=== PATIENT | male | born 1965 | race Caucasian/White ===

== ENCOUNTER → 2022-06-01 10:28 | Outpatient (BNVA) | payer OTHER, SELFPAY | PROVIDERS: PCP Physician Assistant; Visit Provider Anesthesiology | DX: G89.4 Chronic pain syndrome (principal); M96.1 Postlaminectomy syndrome, not elsewhere classified; M46.1 Sacroiliitis, not elsewhere classified; M53.3 Sacrococcygeal disorders, not elsewhere classified | CPT/HCPCS: 99202 ==

== ENCOUNTER 2022-08-02 07:15 | Outpatient (REF) | payer OTHER, SELFPAY ==
--- NOTE | ~2022-08-02 | FL_ITS ---
EXAMINATION: XR FLUOROSCOPY WITH IMAGES CLINICAL INFORMATION: M53.3 - Sacrococcygeal disorders, not elsewhere classified COMPARISON: CT pelvis 12/18/2016 TECHNIQUE: Fluoroscopy Supervised By: Dr. Jonathan Vazquez. Fluoroscopy Time: 0.5 minutes. Cumulative Dose: 6.80 mGy. DAP: 1.85 Gycm2. Images: 2. FINDINGS: There are 5 spinal needles overlying the sacral wing, presumably the right with patient prone. Some contrast is seen in the soft tissues without vascular communication. There is bilateral rodding and disc spaces lower lumbar spine. FL/FL guidance in treatment room IMPRESSION: Fluoroscopy for pain management procedures.
== END 2022-08-02 07:16 | disposition home or self-care (01) ==
LOC: CF 07:15
PROVIDERS: Visit Provider Anesthesiology
DX: M53.3 Sacrococcygeal disorders, not elsewhere classified (principal); M96.1 Postlaminectomy syndrome, not elsewhere classified; G89.4 Chronic pain syndrome; M46.1 Sacroiliitis, not elsewhere classified
CPT/HCPCS: 64451

== ENCOUNTER → 2022-08-04 10:46 | Outpatient (BNVA) | payer OTHER, SELFPAY | PROVIDERS: PCP Physician Assistant; Visit Provider Anesthesiology | DX: Z13.89 Encounter for screening for other disorder (principal) ==

== ENCOUNTER → 2022-08-15 10:32 | Outpatient (BNVA) | payer OTHER, SELFPAY | PROVIDERS: PCP Physician Assistant; Visit Provider Anesthesiology | DX: M96.1 Postlaminectomy syndrome, not elsewhere classified (principal); M46.1 Sacroiliitis, not elsewhere classified; M53.3 Sacrococcygeal disorders, not elsewhere classified; G89.4 Chronic pain syndrome | CPT/HCPCS: 99212 ==

== ENCOUNTER 2022-09-06 06:21 | Outpatient (REF) | payer OTHER, SELFPAY ==
--- NOTE | ~2022-09-06 | FL_ITS ---
EXAMINATION: FL FLUOROSCOPY WITH IMAGES CLINICAL INFORMATION: Sacrococcygeal disorder not elsewhere classified. COMPARISON: None available. TECHNIQUE: Fluoroscopy Supervised By: Susana Kebede Fluoroscopy Time: 0.4 minutes. Cumulative Dose: 15 mGy-cm DAP: 2.7 Gy-cm2. Images: 2. FINDINGS: Images demonstrate needle placement and contrast injection over the bilateral sacroiliac joints. There is orthopedic hardware seen in the lower lumbar spine. FL/FL guidance in treatment room IMPRESSION: Fluoroscopy guidance for pain management procedure.
== END 2022-09-06 06:22 | disposition home or self-care (01) ==
LOC: CF 06:21
PROVIDERS: Visit Provider Anesthesiology
DX: M46.1 Sacroiliitis, not elsewhere classified (principal); M53.3 Sacrococcygeal disorders, not elsewhere classified
CPT/HCPCS: 27096; J3301

== ENCOUNTER → 2022-10-03 13:33 | Outpatient (BNVA) | payer OTHER, SELFPAY | PROVIDERS: PCP Physician Assistant; Visit Provider Anesthesiology | DX: M96.1 Postlaminectomy syndrome, not elsewhere classified (principal); M46.1 Sacroiliitis, not elsewhere classified; M53.3 Sacrococcygeal disorders, not elsewhere classified; G89.4 Chronic pain syndrome | CPT/HCPCS: 99212 ==

== ENCOUNTER 2022-10-20 10:25 | Day surgery (SDC) | payer OTHER, SELFPAY ==
--- NOTE | 2022-10-19 11:05 | HO.ANESPROP2 ---
Documented by User: Josseline Ann NP 10/19/22 11:08 HPI - Anesthesia Eval Consult details Narrative: 56yo M for Lumbar Spinal Cord Stimulation Trial PMFSH Active Problems Active Problems: All Active Problems (Updated 06/01/22 @ 11:13 by Jonathan Vazquez MD) Sacroiliac joint pain (Acute) Sacroiliitis (Acute) Chronic pain syndrome (Acute) Postlaminectomy syndrome (Acute) Past Medical History Medical History (Updated 10/19/22 @ 11:06 by Josseline Ann NP) Anxiety and depression Asthma GERD (gastroesophageal reflux disease) HLD (hyperlipidemia) HTN (hypertension) CHANI (iron deficiency anemia) Primary insomnia RLS (restless legs syndrome) Vitamin D deficiency Surgical History Surgical History (Updated 10/19/22 @ 11:06 by Josseline Ann NP) S/P lumbar fusion Social History Social History Patient Tobacco Use Status: Never used Tobacco Use of substances other than those prescribed or required for medical reasons: No Substance Use Type Other:: denied Are you DNR?: No Advance Directives: No Advance Directives Information Provided: Yes Meds Allergies Allergy/AdvReac Type Severity Reaction Status Date / Time No Known Allergies Allergy Verified 10/03/22 13:37 Home Medications Medication Instructions Recorded Confirmed Last Taken Type atorvastatin 80 mg tablet 80 mg PO DAILY 06/01/22 10/20/22 Unknown History dicyclomine 10 mg capsule 10 mg PO Q6H PRN Stomach Upset 06/01/22 10/20/22 Unknown History fluticasone 250 mcg-salmeterol 50 1 ea inhalation BID 06/01/22 10/20/22 Unknown History mcg/dose blistr powdr for inhalation (Advair Diskus) gabapentin 600 mg tablet 600 mg PO QID 06/01/22 10/20/22 Unknown History lisinopril 10 mg tablet 10 mg PO DAILY 06/01/22 10/20/22 Unknown History omeprazole 40 mg capsule,delayed 40 mg PO QAM 06/01/22 10/20/22 Unknown History release ondansetron HCl 4 mg tablet 4 mg PO Q8H PRN nausea 06/01/22 10/20/22 Unknown History sertraline 100 mg tablet 100 mg PO DAILY 06/01/22 10/20/22 Unknown History ropinirole 0.25 mg tablet 0.5 mg PO BID 08/02/22 10/20/22 Unknown History trazodone 50 mg tablet 50 - 150 mg PO BEDTIME PRN Insomnia 08/02/22 10/20/22 Unknown History Exam Exam Date and Time: October 19, 2022 1105 Assessment and Plan Assessment Anesthesia Assessment: Chart Reviewed Documented by User: Ashutosh Le MD 10/20/22 12:13 PMF Past Medical History Medical History (Updated 10/19/22 @ 11:06 by Josseline Ann NP) Anxiety and depression Asthma GERD (gastroesophageal reflux disease) HLD (hyperlipidemia) HTN (hypertension) CHANI (iron deficiency anemia) Primary insomnia RLS (restless legs syndrome) Vitamin D deficiency Family History Family history of problems with anesthesia: No Surgical History Surgical History (Updated 10/19/22 @ 11:06 by Josseline Ann NP) S/P lumbar fusion History of Problems with Anesthesia: No Social History Social History Patient Tobacco Use Status: Never used Tobacco Use of substances other than those prescribed or required for medical reasons: No Substance Use Type Other:: denied Are you DNR?: No Advance Directives: No Advance Directives Information Provided: Yes Meds Allergies Allergy/AdvReac Type Severity Reaction Status Date / Time No Known Allergies Allergy Verified 10/03/22 13:37 Home Medications Medication Instructions Recorded Confirmed Last Taken Type atorvastatin 80 mg tablet 80 mg PO DAILY 06/01/22 10/20/22 Unknown History dicyclomine 10 mg capsule 10 mg PO Q6H PRN Stomach Upset 06/01/22 10/20/22 Unknown History fluticasone 250 mcg-salmeterol 50 1 ea inhalation BID 06/01/22 10/20/22 Unknown History mcg/dose blistr powdr for inhalation (Advair Diskus) gabapentin 600 mg tablet 600 mg PO QID 06/01/22 10/20/22 Unknown History lisinopril 10 mg tablet 10 mg PO DAILY 06/01/22 10/20/22 Unknown History omeprazole 40 mg capsule,delayed 40 mg PO QAM 06/01/22 10/20/22 Unknown History release ondansetron HCl 4 mg tablet 4 mg PO Q8H PRN nausea 06/01/22 10/20/22 Unknown History sertraline 100 mg tablet 100 mg PO DAILY 06/01/22 10/20/22 Unknown History ropinirole 0.25 mg tablet 0.5 mg PO BID 08/02/22 10/20/22 Unknown History trazodone 50 mg tablet 50 - 150 mg PO BEDTIME PRN Insomnia 08/02/22 10/20/22 Unknown History Exam Airway Mallampati Class: I TM Dist: >3cm Neck ROM: Full Denture: Upper and Lower Heart: ok Lungs: ok Assessment and Plan Assessment Anesthesia Assessment: Anesthesia Plan Discussed Final Anesthetic Review Family History of Problems with Anesthesia: No History of Problems with Anesthesia: No NPO: Yes ASA Class: II Final Preanesthetic Review: No Changes in Pt Med Stat, Meds/Allgs Chart Reviewed, Consent Obtained/Reviewed and Anes Risks/Benef Reviewed Patient Risk: Low Procedure Risk: Intermediate Anesthetic Plan Anesthetic Plan: MAC: and Agree w/ Assess. and Plan Disposition: Standard PACU
--- NOTE | ~2022-10-20 | FL_ITS ---
EXAMINATION: XR FLUOROSCOPY WITH IMAGES CLINICAL INFORMATION: Spinal cord stimulator COMPARISON: Chest radiograph 11/14/2018 TECHNIQUE: Fluoroscopy Supervised By: Dr. Jonathan Vazquez. Fluoroscopy Time: 1.8 minutes. Cumulative Dose: 24.6 mGy. DAP: 6.71 Gycm2. Images: 3. FINDINGS: There are 2 spinal stimulator electrodes seen ascending the posterior spinal canal. The electrode tips are at level of mid thoracic spine. There is no visible kinking or defect of the leads. FL/FL guidance in OR IMPRESSION: Fluoroscopy for pain management procedure.
[2022-10-20 11:14] VITALS: BP 105/77; RESP 18; TEMP 36.4; O2SAT 95
[2022-10-20 11:17] VITALS: BMI 24.3
[2022-10-20] MEDS: Lactated Ringers 1,000 ML 100 ML IVCONT (11:21)
--- NOTE | 2022-10-20 11:39 | P.HPSUR_ITS ---
Pre-Procedural Eval Section A Date of Service: 10/20/22 The patient is an INPATIENT: No Changes since office visit: Yes Patient answered all questions The History & Physical has been completed within 30 days and I have reviewed it.: No Section B Chief Complaint: Postlaminectomy syndrome, not elsewhere classified Details of Present Illness: as above Relevant Family History (Specify if Yes): No Relevant Social History: None Present Medications: see Short Stay Collaborative assessment Medical History: No relevant PMH History of Previous Operations: Relevant previous surgery/procedure and date(s) Allergies: Allergies Allergy/AdvReac Type Severity Reaction Status Date / Time No Known Allergies Allergy Verified 10/03/22 13:37 Review of Systems Sugical H&P ROS: Negative: Constitution, Cardiovascular, Respiratory, Neurological, Psychiatric, Hem-Onc, Allergic/Immunologic, Gastrointestinal, Genitourinary, Musculoskeletal, Integumentary, Endocrine and Eyes/Ear s/Nose/Throat Exam Surgical H&P Exam: Normal: HEENT, Normal: Heart, Normal: Lungs, Normal: Extremities, Normal: Abdomen, Normal: Skin and Normal: Neurological Plan Diagnosis/Plan: Unchanged I have reviewed the history and physical and performed a pertinent physical examination on my patient. No changes have occurred unless specified. Time Spent With Patient Time: Total time managing care of this patient today ____ minutes.
--- NOTE | 2022-10-20 12:55 | P.BOP_ITS ---
Brief Operative Note Date of Service: 10/20/22 Pre-op diagnosis: postlaminectomy syndrome Post-op diagnosis: same Procedure: Trial of the [employer] SCS Surgeon: Jonathan Vazquez MD Anesthesia: MAC Was an Redipper used for this Procedure?: No Estimated blood loss (mL): 8 Pathology: none sent Condition: stable Disposition: PACU
--- NOTE | 2022-10-20 12:55 | PM.OP ---
Brief Operative Note Date of Service: 10/20/22 Pre-op diagnosis: postlaminectomy syndrome Post-op diagnosis: same Procedure: Trial of the [employer] SCS Surgeon: Jonathan Vazquez MD Anesthesia: MAC Was an [employer] Manager used for this Procedure?: No Estimated blood loss (mL): 8 Pathology: none sent Condition: stable Disposition: PACU
--- NOTE | 2022-10-20 12:57 | P.OP_ITS ---
Operative Note Operative Note Date of Service: 10/20/22 Narrative: trial of spinal cord stimulator [employer] SCS Gaurav is very pleasant 56 years old gentleman who came to the OR for the trial as above for the treatment of postlaminectomy syndrome and diabetic polyneu ropathy pain. ?Preoperatively patient received ? cefazolin 2 g approximately 10 minutes before the procedure. After obtaining informed consent the patient was brought to the operating room, he was positioned prone on operating table, [place] [employer] monitors were? not applied and the patient was not sedated. ?Time-out was performed delineating correct site, side, the nature of the procedure, patient's allergy, preoperative antibiotic if needed.? All operating room staff was participating in OR time-out procedure. Patient's entire back was prepped with Chloraprep twice and draped with full body fenestrated laparoscopy drape.? Sterilely draped C-arm was brought over operating field and square picture of the ? T12-L1 L2 and L3 vertebrae? were demonstrated on the screen. ?Attention FIRST? was concentrated on the L1-L2 epidural interspace.? The location of the projection of the right pedicle center of the L3 vertebra was found on the skin using C-arm.? This location was injected with mixture of lidocaine 2% and ropivaciane 0.5% - 5 cc.? After that 11 blade was used to make a paras on the skin.? 10 cm 14 gauge? introducer epidural needle was inserted through the paras and advanced to? L1-L2 epidural interspace.? The advancement of the needle was performed on anterior posterior and lateral views. Loss of resistance to air? technique were used to locate epidural space.,very shallow epidural about 3.5 to 4 cm only under the skin. epidural lead was inserted through the needle and it was advanced to ? top of T7 vertebra projection stric tly on the midline, lateral view demonstrated position of the lead in posterior epidural space. After that? the location of the projection of the LEFT pedicle center of the? L3 vertebra was found on the skin using C-arm.? This location was injected with mixture of lidocaine 2% and Marcaine 0.5% 5 cc.? After that 11 blade was used to make a paras on the skin.? 10 cm 14 gauge introducer epidural needle was inserted through the paras and advanced to L1- L2 epidural interspace.? The advancement of the needle was performed on anterior posterior and lateral views.? Guitar wire and loss of resistance to air technique were used to locate epidural space.? When guitar wire was spread in the epidural fashion, epidural lead was inserted through the needle and advanced to the top of T7 epidural interspace slightly? right to the existing midline positioned electrode. On the lateral view the patient had the leads positioned in the posterior epidural space. Impedance was checked and was satisfactory . at this moment patient was awaken of the epidural leads were connected to the testing wires and trial stimulation was performed.? Patient was reporting stimulation corresponding to his low back and left? lower extremity pain. Impedance was checked? and it was found to be satisfactory.? Posterior lead placement was verified by lateral x-ray ? The stimulation was found to be? corresponding to the patient's pain. The needles were withdrawn, the stylette wires were removed from the epidural leads.? The anchoring devices were dislodged on the leads and advanced to the level of the skin.? The anchoring devices were sutured with two 0-0? Silk sutures per each anchor to the skin of the patient. The central fixation screw of each anchor was rotated until three clicks were heard. The leads were connected to testing device.? Bacitracin ointment was applied to the entrance point of bilateral wires.? Sterile dressing was applied to the patient's back.? The testing device was also taped to the patient's back.? the patient tolerated procedure well he was awaken and taken outside of the operating room to recovery room. he recovered uneventfully.
[2022-10-20 12:58] VITALS: BP 122/80; PULSE 58; RESP 18; TEMP 36.9; O2SAT 100
[2022-10-20 13:13] VITALS: BP 125/83; PULSE 67; RESP 18; O2SAT 99
[2022-10-20 13:28] VITALS: BP 136/88; PULSE 70; RESP 18; O2SAT 96
[2022-10-20] MEDS: oxyCODONE HCl Immed Release 5 MG TABLET 10 MG PO (13:28)
[2022-10-20] MEDS: Acetaminophen 325 MG TABLET 650 MG PO (13:29)
[2022-10-20 13:43] VITALS: BP 122/80; PULSE 68; RESP 18; TEMP 36.9; O2SAT 99
== END 2022-10-20 14:43 | disposition home or self-care (01) ==
PROVIDERS: PCP Physician Assistant Medical; Visit Provider Anesthesiology
PROC: (CPT 63650; principal; 2022-10-20 11:30)
DX: M96.1 Postlaminectomy syndrome, not elsewhere classified (principal); M53.3 Sacrococcygeal disorders, not elsewhere classified; M46.1 Sacroiliitis, not elsewhere classified; G89.4 Chronic pain syndrome; E11.42 Type 2 diabetes mellitus with diabetic polyneuropathy; E78.5 Hyperlipidemia, unspecified; I10 Essential (primary) hypertension; F41.8 Other specified anxiety disorders; J45.909 Unspecified asthma, uncomplicated; D50.9 Iron deficiency anemia, unspecified; Z79.51 Long term (current) use of inhaled steroids; Z79.899 Other long term (current) drug therapy; Z98.890 Other specified postprocedural states; E55.9 Vitamin D deficiency, unspecified
CPT/HCPCS: 63650 ×2; C1713; C1778; J0690; J2250; J2795; J3010

== ENCOUNTER → 2022-10-24 14:46 | Outpatient (BNVA) | payer OTHER, SELFPAY | PROVIDERS: PCP Physician Assistant Medical; Visit Provider Anesthesiology | DX: M96.1 Postlaminectomy syndrome, not elsewhere classified (principal); M46.1 Sacroiliitis, not elsewhere classified; M53.3 Sacrococcygeal disorders, not elsewhere classified; G89.4 Chronic pain syndrome | CPT/HCPCS: 99212 ==

== ENCOUNTER → 2022-10-27 15:49 | Outpatient (BNVA) | payer OTHER, SELFPAY | PROVIDERS: PCP Physician Assistant Medical; Visit Provider Nurse Practitioner Family | DX: G89.4 Chronic pain syndrome (principal); M53.3 Sacrococcygeal disorders, not elsewhere classified; M46.1 Sacroiliitis, not elsewhere classified; M96.1 Postlaminectomy syndrome, not elsewhere classified | CPT/HCPCS: 99212 ==

== ENCOUNTER → 2022-11-11 10:23 | Outpatient (BNVA) | payer OTHER, SELFPAY | PROVIDERS: PCP Physician Assistant Medical; Visit Provider Physician Assistant | DX: M53.3 Sacrococcygeal disorders, not elsewhere classified (principal) | CPT/HCPCS: 99212 ==

== ENCOUNTER → 2022-11-14 15:22 | Outpatient (BNVA) | payer OTHER, SELFPAY | PROVIDERS: PCP Physician Assistant Medical; Visit Provider Anesthesiology | DX: M96.1 Postlaminectomy syndrome, not elsewhere classified (principal); M46.1 Sacroiliitis, not elsewhere classified; M53.3 Sacrococcygeal disorders, not elsewhere classified; G89.4 Chronic pain syndrome | CPT/HCPCS: 99212 ==

== ENCOUNTER → 2022-11-23 13:06 | Outpatient (BNVA) | payer OTHER, SELFPAY | PROVIDERS: PCP Physician Assistant Medical; Visit Provider Anesthesiology | DX: M96.1 Postlaminectomy syndrome, not elsewhere classified (principal); M46.1 Sacroiliitis, not elsewhere classified; M53.3 Sacrococcygeal disorders, not elsewhere classified; G89.4 Chronic pain syndrome | CPT/HCPCS: 99212 ==

== ENCOUNTER 2023-02-03 12:02 | Inpatient (IN) | payer OTHER, SELFPAY ==
--- NOTE | ~2023-02-03 | CT_ITS ---
EXAMINATION: CT LOWER LEG WITH CONTRAST, RIGHT CLINICAL INFORMATION: Cellulitis, evaluate for abscess. COMPARISON: X-ray of the right lower leg 02/03/2023. TECHNIQUE: CT scan of the right lower leg is performed with contrast. 85 mL of Omnipaque 350 given intravenously. FINDINGS: There is a superficial skin/subcutaneous tissue defect noted along the anterior medial aspect of the proximal lower leg located 4 cm distal to the joint line. This defect measures 9 mm transverse, 10 mm craniocaudal and up to 4 mm in depth. Question ulceration or laceration. Deep to the aforementioned superficial defect is an area of heterogeneous low attenuation with poorly defined margins but extending proximal to distal over a distance of approximately 10 cm craniocaudal. This measures up to 5.6 cm transverse and up to 1 cm anterior and posterior. There are multiple foci of gas noted within this area of decreased attenuation. The appearance is most suggestive of a developing abscess/phlegmon. There is additional more generalized streaky density noted throughout the subcutaneous soft tissues predominantly along the anterior and medial aspect of the proximal half of the lower leg. This likely reflects edema or cellulitis or combination of these. The bone is normal. Neurovascular structures unremarkable. Muscles/Tendons: Unremarkable. CT/CT lower leg RT w IV con IMPRESSION: 1. Superficial skin/subcutaneous tissue defect along the anterior medial aspect of the proximal lower leg. Question laceration versus ulceration. 2. Deep to the aforementioned superficial defect is an area of heterogeneous low attenuation with multiple foci of gas most suggestive of a developing abscess. 3. There is additional streaky density noted throughout the subcutaneous soft tissues predominantly along the anterior and medial aspect of the proximal half of the lower leg. This likely reflects surrounding edema or cellulitis or combination of these.
--- NOTE | ~2023-02-03 | XR_ITS ---
EXAMINATION: XR TIBIA AND FIBULA, RIGHT CLINICAL INFORMATION: Assess for osteomyelitis COMPARISON: None available. TECHNIQUE: AP and lateral views of the right tibia and fibula were obtained. FINDINGS: The bones and soft tissues are notable for lucencies within the soft tissues anteriorly which should be correlated with physical exam. No radiopaque foreign body or definite soft tissue air. No findings of osteomyelitis. Calcaneal plantar spurring.. No fracture. No osseous lesions. XR/XR tibia fibula RT 2V IMPRESSION: Soft tissue changes as above. No evidence of osteomyelitis. If there is a high index of suspicion, MRI would be more sensitive.
[2023-02-03 13:32] VITALS: BP 144/89; PULSE 136; RESP 17; TEMP 36.1; O2SAT 94; BMI 22.0
--- NOTE | 2023-02-03 13:35 | ED.GENADULT ---
HPI - General Adult General Chief complaint: Extremity Problem Stated complaint: Infection R Leg Dizziness Time Seen by Provider: 02/03/23 15:55 Source: patient Mode of arrival: ambulatory Limitations: no limitations History of Present Illness HPI narrative: 57 yo male with chronic back pain here with c/o R leg infection for almost two weeks states he was at [facility] for 8 days until the (had I+D no wound cultures done but blood cultures neg) and discharged on augmentin he has been taking it for 5 days. A VNA was supposed to come but they never did. He feels the wound is more red and not improving. He thinks he is having fevers. He is taking the medications. It all started when he knelt down on wood and developed what he thought was puncture wounds/splinters and was digging around in it. He adamantly denies IVDA to me but takes methadone for chronic back pain. MD complaint: R leg redness, drainage Onset (ago): day(s) (started on 01/21) Location: right and lower extremity Radiation: non-radiation Severity: moderate Quality: aching and dull Pain Consistency: constant Relieving factors: immobilization Exacerbating factors: movement Associated symptoms: fever/chills, loss of appetite and malaise Treatments prior to arrival: other (states he is compliant with the augmentin) Related Data Home Medications Medication Instructions Recorded Confirmed atorvastatin 80 mg tablet 80 mg PO DAILY 06/01/22 10/20/22 dicyclomine 10 mg capsule 10 mg PO Q6H PRN Stomach Upset 06/01/22 10/20/22 fluticasone 250 mcg-salmeterol 50 1 ea inhalation BID 06/01/22 10/20/22 mcg/dose blistr powdr for inhalation (Advair Diskus) lisinopril 10 mg tablet 10 mg PO DAILY 06/01/22 10/20/22 omeprazole 40 mg capsule,delayed 40 mg PO QAM 06/01/22 10/20/22 release ondansetron HCl 4 mg tablet 4 mg PO Q8H PRN nausea 06/01/22 10/20/22 sertraline 100 mg tablet 100 mg PO DAILY 06/01/22 10/20/22 ropinirole 0.25 mg tablet 1 mg PO BEDTIME 08/02/22 10/20/22 trazodone 50 mg tablet 50 - 150 mg PO BEDTIME PRN Insomnia 08/02/22 10/20/22 tramadol 50 mg tablet mg PO 10/27/22 amoxicillin 875 mg-potassium 1 tab PO Q12H 02/03/23 clavulanate 125 mg tablet baclofen 10 mg tablet 10 mg PO TID 02/03/23 celecoxib 200 mg capsule 200 mg PO BID 02/03/23 gabapentin 800 mg tablet 800 mg PO QID 02/03/23 methocarbamol 750 mg tablet 750 mg PO TID 02/03/23 venlafaxine 37.5 mg 37.5 mg PO DAILY 02/03/23 capsule,extended release 24 hr Allergies Allergy/AdvReac Type Severity Reaction Status Date / Time No Known Allergies Allergy Verified 11/23/22 13:14 Review of Systems Review of Systems: Constitutional : No Fever, pos Chills ENT/Mouth : No sore throat, No Rhinorrhea Eyes: No Eye Pain, No Swelling, No Redness Cardiovascular : No Chest Pain, No SOB Respiratory : No Cough, No Sputum Gastrointestinal : No Nausea, No Vomiting, No Diarrhea, No abdominal Pain Genitourinary : No Dysuria, No Hematuria Musculoskeletal : No joint pain, No Myalgias, No Joint Swelling Skin : No Skin Lesions, positive skin rash Neuro : No Weakness, No Numbness, No Headache Psych : No Anxiety, No Depression Heme/Lymph: No Bruising, No Bleeding,No Lymphadenopathy Endocrine : No Polyuria, No Polydipsia All other systems reviewed and are negative [facility] Past Medical History Attestation statement: The following information was validated with the patient. Medical History Anxiety and depression Asthma GERD (gastroesophageal reflux disease) HLD (hyperlipidemia) HTN (hypertension) CHANI (iron deficiency anemia) Primary insomnia RLS (restless legs syndrome) Vitamin D deficiency Surgical History S/P lumbar fusion Social History Social History Alcohol intake: never Patient Tobacco Use Status: Never used Tobacco Smoked in Last 30 Days: No Use of substances other than those prescribed or required for medical reasons: No Advance Directives: No Advance Directives Information Provided: No Physical Exam ED Vital Signs: Vital Signs - 24 hr 02/03/23 13:32 02/03/23 14:48 02/03/23 15:41 Temperature 97.0 F 98.2 F Pulse Rate 136 H 81 75 Respiratory Rate 17 18 18 Blood Pressure 144/89 H 156/92 H 146/84 H Pulse Oximetry 94 97 97 Oxygen Delivery Method Room Air Room Air Room Air BMI result Body Mass Index 22.0 Appearance: Alert. Oriented X3. No acute distress. Eyes: Pupils equal, round and reactive to light. ENT: Pharynx normal. Neck: Normal inspection. Neck supple. CVS: Normal heart rate and rhythm. Pulses normal. Respiratory: No respiratory distress. Breath sounds normal. Abdomen: Soft and nontender. Skin: Skin warm and dry. R leg anterior - erythema warmth raised and cellulitic no crepitus felt there are 3 open wounds medial wound is draining yellow ss fluid he can bend the knee no signs of septic joint on clinical exam distal NV intact Extremities: No lower extremity edema. No calf ttp Neuro: Oriented X 3. No motor deficit. No sensory deficit. Course Course Course Narrative: This is a rapid medical exam: Additional HPI, ROS, PE not included below will be deferred to primary provider. Patient is a 57-year-old male presenting to the emergency department with worsening right lower extremity infection. Patient reports that he felt on something and developed an infection. Has been on Augmentin and states redness is worsening. Reports subjective fever. Patient tachycardic, will order blood cultures, lactic, EKG. Plan: x-ray, labs, EKG Medications Administered Discontinued Medications Generic Name Dose Route Start Last Admin Trade Name Freq PRN Reason Stop Dose Admin Piperacillin Sod/Tazobactam 50 mls @ 100 mls/hr 02/03/23 16:21 02/03/23 16:32 Sod 3.375 gm/ Sodium Chloride IV 02/03/23 16:50 100 mls/hr ONCE ONE Administration Medical Decision Making Medical Decision Making MDM Narrative: 57 yo male hx of HTN, HLD, asthma, chronic pain on methadone here with persistent R leg infection s/p treatment and I+D at [facility] this month and on day 5 of augmentin he still has drainage and erythema with fevers/chills at home and WBC count at this time will resend cultures and wound culture start on empiric broad antibiotics and admit for further workup. Differential Diagnosis Differential Diagnoses: The differential diagnosis associated with the presentation includes cellulitis - resistant bacteria Admission/Observation Consideration of admission/observation: Escalation of care including admission/observation considered admission for IV antibiotics Consult Healthcare Provider Management of the patient was discussed with: Hospitalist (agrees to admit) Lab Data [facility] Lab Attestation statement: I reviewed the patient's lab results. 02/03/23 14:07 02/03/23 14:07 Labs: Lab Results 02/03/23 02/03/23 02/03/23 Range/Units 14:07 14:07 14:07 WBC 14.4 H (4.8-10.8) X10*3/uL RBC 4.86 (4.60-5.80) X10*6/uL Hgb 14.4 (14.0-18.0) g/dl Hct 43.2 (42.0-52.0) % MCV 88.9 (80.0-98.0) fL MCH 29.6 (27.0-33.0) pg MCHC 33.3 (31.0-36.0) g/dl RDW 12.7 (11.0-16.0) % Plt Count 402 H (160-400) X10*3/uL MPV 9.3 L (9.4-12.4) fL Immature Gran % (Auto) 4.7 H (0.0-0.4) % Neut % (Auto) 81.1 H (45-73) % Lymph % (Auto) 8.6 L (20-40) % [place] % (Auto) 5.0 (2-11) % Eos % (Auto) 0.2 (0-4) % Baso % (Auto) 0.4 (0-2) % Lymph # (Auto) 1.2 (1.2-4.9) X10*3/uL [place] # (Auto) 0.7 (0.1-1.2) X10*3/uL Eos # (Auto) 0.0 (0.0-0.4) X10*3/uL Baso # (Auto) 0.1 (0.0-0.2) X10*3/uL Abs Immat Gran (auto) 0.67 H (0.00-0.03) X10*3/uL Absolute Neuts (auto) 11.7 H (2.0-8.3) x10*3/uL Absolute Nucleated RBC 0.000 (0.0-0.012) X10*3/uL Nucleated RBC % (auto) 0.0 (0.0-0.2) /100WBC Sodium 136 (135-145) mmol/L Potassium 4.6 (3.3-5.1) mmol/L Chloride 97 (96-108) mmol/L Carbon Dioxide 30 H (22-29) mmol/L Anion Gap 14 (12-20) BUN 8 L (9-16) mg/dL Creatinine 0.80 (0.5-1.4) mg/dL Estim Creat Clear Calc 92.4 Estimated GFR > 60 Random Glucose 99 (60-115) mg/dL Lactic Acid 0.6 (0.5-2.0) mmol/L Calcium 9.6 (8.4-10.2) mg/dL Total Bilirubin 0.4 (0.0-1.0) mg/dL AST 38 H (5-37) U/L ALT 31 (0-40) U/L Alkaline Phosphatase 100 (39-117) U/L Total Protein 7.8 (6.5-8.0) g/dL Albumin 4.1 (3.5-5.0) g/dL Independent Interpretation I performed an independent interpretation of an: Plain X-Ray (no gas or osteo) Radiology Impression Discussion of test interpretation with radiology: I have reviewed the radiologist's reading. External Record Review External record reviewed: Outpatient record Discharge Plan Discharge Clinical Impression: Cellulitis, Leukocytosis Patient Disposition: Admitted As Inpatient Prescriptions: No Action cephalexin 500 mg tablet 1,000 mg PO Q8H 7 Days Qty: 42 1RF Rx Instructions: take probiotics 25 billion cultures with food between the doses of your antibiotics. celecoxib 200 mg capsule 200 mg PO BID venlafaxine 37.5 mg capsule,extended release 24hr 37.5 mg PO DAILY methocarbamol 750 mg tablet 750 mg PO TID gabapentin 800 mg tablet 800 mg PO QID baclofen 10 mg tablet 10 mg PO TID amoxicillin-pot clavulanate 875-125 mg tablet 1 tab PO Q12H fluticasone propion-salmeterol [Advair Diskus] 250-50 mcg/dose blister with device 1 ea inhalation BID ondansetron HCl 4 mg tablet 4 mg PO Q8H PRN (Reason: nausea) dicyclomine 10 mg capsule 10 mg PO Q6H PRN (Reason: Stomach Upset) lisinopril 10 mg tablet 10 mg PO DAILY omeprazole 40 mg capsule,delayed release(DR/EC) 40 mg PO QAM sertraline 100 mg tablet 100 mg PO DAILY atorvastatin 80 mg tablet 80 mg PO DAILY trazodone 50 mg tablet 50 - 150 mg PO BEDTIME PRN (Reason: Insomnia) ropinirole 0.25 mg tablet 0.5 mg PO BID tramadol 50 mg tablet PO
--- NOTE | 2023-02-03 13:41 | ECG_ITS ---
Test Reason : TACHYCARDIA Blood Pressure : / mmHG Vent. Rate : 075 BPM Atrial Rate : 075 BPM P-R Int : 152 ms QRS Dur : 074 ms QT Int : 370 ms P-R-T Axes : 019 039 045 degrees QTc Int : 413 ms Normal sinus rhythm Normal ECG When compared with ECG of 14-NOV-2018 01:21, T wave amplitude has increased in Anterior leads Heart rate has decreased Referred By: Generic ED Physician Electronically Signed By:EDMUNDO CHANDRA
[2023-02-03 14:13] LABS: MANUAL DIFF FLAG NO
[2023-02-03 14:14] LABS: Basophils Absolute Auto 0.1 X10*3/uL (0.0-0.2); Basophils Percent Auto 0.4 % (0-2); Eosinophils Percent Auto 0.2 % (0-4); Hematocrit 43.2 % (42.0-52.0); Hemoglobin 14.4 g/dl (14.0-18.0); Imm Gran Abs Auto 0.67 X10*3/uL (0.00-0.03); Imm Gran Pct Auto 4.7 % (0.0-0.4); Lymphocytes Absolute Auto 1.2 X10*3/uL (1.2-4.9); Lymphocytes Percent Auto 8.6 % (20-40); Mean Corpuscular HGB Conc 33.3 g/dl (31.0-36.0); Mean Corpuscular Hemoglobin 29.6 pg (27.0-33.0); Mean Corpuscular Volume 88.9 fL (80.0-98.0); Mean Platelet Volume 9.3 fL (9.4-12.4); Monocytes Absolute Auto 0.7 X10*3/uL (0.1-1.2); Neutrophils Absolute Auto 11.7 x10*3/uL (2.0-8.3); Neutrophils Percent Auto 81.1 % (45-73); Platelet Count 402 X10*3/uL (160-400); Red Blood Count 4.86 X10*6/uL (4.60-5.80); Red Cell Distribution Width 12.7 % (11.0-16.0); White Blood Count 14.4 X10*3/uL (4.8-10.8)
[2023-02-03 14:44] LABS: Lactic Acid 0.6 mmol/L (0.5-2.0)
[2023-02-03 14:48] VITALS: BP 156/92; PULSE 81; RESP 18; TEMP 36.8; O2SAT 97
[2023-02-03 14:49] LABS: Alanine Aminotransferase 31 U/L (0-40); Albumin Level 4.1 g/dL (3.5-5.0); Alkaline Phosphatase 100 U/L (39-117); Anion Gap 14 (12-20); Aspartate Amino Transferase 38 U/L (5-37); Bilirubin Total 0.4 mg/dL (0.0-1.0); Blood Urea Nitrogen 8 mg/dL (9-16); Calcium 9.6 mg/dL (8.4-10.2); Carbon Dioxide 30 mmol/L (22-29); Chloride 97 mmol/L (96-108); Creatinine Clr Calc Pharmacy 92.4; Estimated Glomerular Filt Rate > 60; Glucose Random 99 mg/dL (60-115); Potassium 4.6 mmol/L (3.3-5.1); Sodium 136 mmol/L (135-145); Total Protein 7.8 g/dL (6.5-8.0)
--- NOTE | 2023-02-03 14:55 | PC.NURSE ---
pt reports getting methadone for his R calf pain/wound, pt was taking amoxicillin past 5 day with minimal improvement. pt reports increased redness, warmth, swelling and drainage.
[2023-02-03 15:41] VITALS: BP 146/84; PULSE 75; RESP 18; O2SAT 97
[2023-02-03] MEDS: Piperacillin Sodium/Tazobactam 3.375 GM in 0.9 % Sodium Chloride 50 ML IV (16:32)
[2023-02-03] MEDS: vancomycin HCL 1,000 MG, vancomycin HCL 750 MG in 0.9 % Sodium Chloride 500 ML 267.5 MG IV (17:31)
[2023-02-03 17:32] VITALS: PULSE 75; RESP 16; TEMP 36.9; O2SAT 94
--- NOTE | 2023-02-03 17:39 | P.HPHOSP_ITS ---
the patient was seen and evaluated with JOE Ambrocio. I agree with her note, assessment and plan with the following. In summary, A 57 years old male w HTN, HLD, RLS among others who presents with RLE erythema and drainage after being recently treated for it at [facility] with reported worsening erythema and drainage. Sepsis 2/2 cellulitis of RLE Failer OP antibiotics Pending wound and blood cultures Cover with Vancomycin ID consult Rest of evaluations by PA note. History of Present Illness Date of Service: 02/03/23 Attending physician on admission: Alfonso Lopez Chief Complaint: right leg redness and pain This is a 57-year-old male with recent admission at [facility] for right lower extremity cellulitis who presents to the emergency department today with persistent redness and pain of his right lower extremity. Patient was admitted from January 24 to January 31 for management of cellulitis and abscess requiring I&D on 01/28. Records obtained from [facility], no wound cultures obtained. Blood cultures were negative. patient was discharged with a week of augmentin. He has been taking his p.o. antibiotics as prescribed. This morning he noted feeling feverish. He reports persistent purulent drainage and ongoing erythema. In the emergency department met sepsis criteria with leukocytosis of 14,000 and tachycardia. Wound culture was obtained as well as blood cultures. He was treated with IV Zosyn and the decision was made to admit him to the hospital for further management of persistent right lower extremity cellulitis. Review of Systems Review of Systems: Yes all other systems are reviewed and are negative Constitutional: Constitutional: Denies chills and Reports fever(s) (subjective) Cardiovascular: Cardiovascular: Denies chest pain Gastrointestinal: Gastrointestinal: Denies abdominal pain, Denies nausea and Denies vomiting [facility] Medical History (Updated 02/03/23 @ 17:47 by JOE Sepulveda) Anxiety and depression Asthma Chronic pain syndrome GERD (gastroesophageal reflux disease) HLD (hyperlipidemia) HTN (hypertension) CHANI (iron deficiency anemia) Postlaminectomy syndrome Primary insomnia RLS (restless legs syndrome) Sacroiliac joint pain Sacroiliitis Vitamin D deficiency Family History (Updated 02/03/23 @ 17:48 by JOE Sepulveda) Other Multiple sclerosis Surgical History S/P lumbar fusion Social History Alcohol intake: never Patient Tobacco Use Status: Never used Tobacco Smoked in Last 30 Days: No Use of substances other than those prescribed or required for medical reasons: No Advance Directives: No Advance Directives Information Provided: No Nutrition Risks: No Nutritional Risk Meds Allergies Allergy/AdvReac Type Severity Reaction Status Date / Time No Known Allergies Allergy Verified 11/23/22 13:14 Active Medications: Current Medications Vancomycin HCl 1,000 mg/Vancomycin HCl 750 mg/ Sodium Chloride 535 mls @ 267.5 mls/hr IV ONCE ONE Stop: 02/03/23 18:20 Last Admin: 02/03/23 17:31 Dose: 267.5 mls/hr Home Medications Medication Instructions Recorded Confirmed Last Taken Type atorvastatin 80 mg tablet 80 mg PO BEDTIME 06/01/22 02/03/23 Unknown History dicyclomine 10 mg capsule 10 mg PO Q6H PRN Stomach Upset 06/01/22 02/03/23 Unknown History fluticasone 250 mcg-salmeterol 50 1 ea inhalation BID 06/01/22 02/03/23 Unknown History mcg/dose blistr powdr for inhalation (Advair Diskus) lisinopril 10 mg tablet 10 mg PO DAILY 06/01/22 02/03/23 Unknown History omeprazole 40 mg capsule,delayed 40 mg PO QAM PRN gi upset 06/01/22 02/03/23 Unknown History release ondansetron HCl 4 mg tablet 4 mg PO Q8H PRN nausea 06/01/22 02/03/23 Unknown History ropinirole 0.25 mg tablet 1 mg PO BEDTIME 08/02/22 02/03/23 Unknown History trazodone 50 mg tablet 150 mg PO BEDTIME PRN Insomnia 08/02/22 02/03/23 Unknown History albuterol sulfate 90 mcg/actuation 2 inh inhalation Q4H PRN Shortness 02/03/23 02/03/23 Unknown History aerosol inhaler Of Breath amoxicillin 875 mg-potassium 1 tab PO Q12H 02/03/23 02/03/23 Unknown History clavulanate 125 mg tablet baclofen 10 mg tablet 10 mg PO TID PRN Muscle Spasm 02/03/23 02/03/23 Unknown History celecoxib 200 mg capsule 200 mg PO BID 02/03/23 02/03/23 Unknown History gabapentin 800 mg tablet 800 mg PO QID 02/03/23 02/03/23 Unknown History methadone 10 mg/mL oral concentrate 90 mg PO DAILY 02/03/23 Unknown History venlafaxine 37.5 mg 37.5 mg PO DAILY 02/03/23 02/03/23 Unknown History capsule,extended release 24 hr Physical Exam Vital Signs and Narrative: Vital Signs: Last Vital Signs Temp 98.5 F 02/03/23 17:32 Pulse 75 02/03/23 17:32 Resp 16 02/03/23 17:32 BP 146/84 H 02/03/23 15:41 Pulse Ox 94 02/03/23 17:32 O2 Del Method Room Air 02/03/23 17:32 BMI result Body Mass Index 22.0 Const: General: cooperative, comfortable, alert and awake Nutritional Appearance: average body habitus Orientation/consciousness: patient oriented x3 Resp: Effort & Inspection: normal respiratory effort, able to speak in complete sentences, no respiratory distress and no use of accessory muscles Cardio: Rate: regular rate Heart sounds: S1 normal heart sound present and S2 normal heart sound present GI: Inspection: No distended Palpation (GI): Soft to palpation and nontender Skin: Other: Neuro: General: patient oriented x3 and CN's II-XI intact bilaterally Extrem: Other: mild RLE swelling Results Labs 02/03/23 14:07 02/03/23 14:07 Labs: Laboratory Results - last 24 hr 02/03/23 02/03/23 02/03/23 14:07 14:07 14:07 MCV 88.9 MCH 29.6 MCHC 33.3 RDW 12.7 Plt Count 402 H MPV 9.3 L Immature Gran % (Auto) 4.7 H Neut % (Auto) 81.1 H Lymph % (Auto) 8.6 L [place] % (Auto) 5.0 Eos % (Auto) 0.2 Baso % (Auto) 0.4 Lymph # (Auto) 1.2 [place] # (Auto) 0.7 Eos # (Auto) 0.0 Baso # (Auto) 0.1 Abs Immat Gran (auto) 0.67 H Absolute Neuts (auto) 11.7 H Absolute Nucleated RBC 0.000 Nucleated RBC % (auto) 0.0 Anion Gap 14 Estim Creat Clear Calc 92.4 Estimated GFR > 60 Random Glucose 99 Lactic Acid 0.6 Calcium 9.6 Total Bilirubin 0.4 AST 38 H ALT 31 Alkaline Phosphatase 100 Total Protein 7.8 Albumin 4.1 Imaging Radiologist's Impressions: Impressions Tibia/Fibula X-Ray 02/03/23 14:28 IMPRESSION: Soft tissue changes as above. No evidence of osteomyelitis. If there is a high index of suspicion, MRI would be more sensitive. Assessment and Plan (1) Cellulitis: Qualifiers: Laterality: right Site of cellulitis: extremity Site of cellulitis of extremity: lower extremity Qualified Code(s): L03.115 - Cellulitis of right lower limb Status: Acute Plan This is a 57-year-old male with history of hypertension, hyperlipidemia, periphe ral neuropathy, restless leg syndrome, chronic back pain, recent admission to [facility] for right lower extremity cellulitis and abscess who presents to the emergency department with persistent pain, erythema and drainage Sepsis secondary to purulent cellulitis of RLE meets criteria with leukocytosis and tachycardia. no severe features. LA wnl. was discharged 01/31 with po augmentin, pt reports compliance xray negative. no evidence of abscess -will start IV vanco -follow up wound culture and blood cultures -ID consult Chronic pain methadone dose needs to be verified Continue gabapentin, baclofen RLS continue ropinirole Hyperlipidemia Continue statin Asthma No acute exacerbation Continue home inhalers mood continue venlafaxine HTN continue lisinopril dvt ppx - lovenox code status - full code attending - dr. lopez Due to persistent cellulitis patient will likely require 2 midnight stay in the hospital for IV antibiotics and to prevent further deterioration/spread of infection Time Spent With Patient Time: Total time managing care of this patient today ____ minutes. Quality Stroke Does the patient have a stroke diagnosis?: No VTE Prior VTE?: No VTE Risk Level:: Medical - moderate - high VTE Device Contraindication: Treatment Not Indicated VTE Drug Contraindication: N/A - Med Ordered
--- NOTE | 2023-02-03 17:45 | PHA.MEDREC ---
Pharmacy Consult ? Medication Reconciliation Pharmacy has completed the medication reconciliation. Patient reported all medications. Patient stated he use Advair and Albuterol even though no claim histroy for them. Patient reported he was methadone for pain. He report he get it from [place] but could not clarify where. Reprots he told the lady that was in here before me. RN will need to confirm dose. Dawna Black, PatrickD
--- NOTE | 2023-02-03 17:51 | PHA.PROG ---
Admission Date/Time: February 03, 2023 17:32 Indication: Cellulitis Weight in k.771 kg Adjusted body weight in K kg Table [place] body weight in K kg Obesity Dosing Indication % IBW: N/A Serum Creatinine - Last 168 Hours 02/03/23 14:07 Creatinine 0.80 Estimated CrCl and GFR - Last 168 Hours 02/03/23 14:07 Estim Creat Clear Calc 92.4 Estimated GFR > 60 Vancomycin Loading Dose:1750 mg (26mg/kg) Current Vancomycin Dosing Regimen: 1000 mg Q12H (15 mg/kg) Date and Time for next Vancomycin Level to be drawn: 02/04 @ 1600 Pharmacist Comments on Vancomycin Plan: patient received an adequate load dose in the the ER on 02/03 @ 1731 maintenance dose vancomycin 1000 mg Q12H is scheduled to start 02/04 @ 0600. expected AUC 468 with a trough of 11.8 level will be drawn prior to 3rd dose to evaluate for safety and effifacy while pharmacy is in house pharmacy will monitor renal function daily Dawna Black PharmD Vancomycin dosing will take advantage of [employer] as a clinical decision support tool that uses Bayesian modeling to calculate individual patient's pharmacokinetic parameters and forecast the patient's drug concentration time course with the target goal AUC 24 range of 400 - 600 mg/L/hr.
[2023-02-03] MEDS: Enoxaparin Sodium 40 MG/0.4 ML SYRINGE SUBCUT (18:35)
[2023-02-03] MEDS: Gabapentin 400 MG CAPSULE 800 MG PO ×2 (18:35→21:27)
[2023-02-03] MEDS: Albuterol Sulfate 90 MCG 8 GM INHALER 2 PUFF INHALE (18:35)
--- NOTE | 2023-02-03 18:45 | PC.NURSE ---
report called to medical doctor md. patient being transported up to bed 362
[2023-02-03 18:52] VITALS: BP 158/84; PULSE 66; RESP 18; TEMP 36; O2SAT 97
[2023-02-03] MEDS: Atorvastatin Calcium 80 MG TABLET PO (21:27)
[2023-02-03] MEDS: rOPINIRole HCL 0.25 MG TABLET 1 MG PO (21:28)
[2023-02-03] MEDS: oxyCODONE HCl Immed Release 5 MG TABLET PO (21:35)
[2023-02-03] MEDS: traZODone HCL 50 MG TABLET 150 MG PO (21:35)
[2023-02-03] MEDS: 0.9 % Sodium Chloride Flush 3 ML SYRINGE IVFLUSH (23:39)
[2023-02-04] VITALS: BP 132/79; PULSE 85
[2023-02-04] MEDS: oxyCODONE HCl Immed Release 5 MG TABLET PO ×2 (00:12→14:45)
[2023-02-04 03:06] VITALS: BP 141/84; PULSE 77; RESP 17; TEMP 36.9; O2SAT 94
[2023-02-04 06:29] LABS: Hematocrit 38.8 % (42.0-52.0); Hemoglobin 12.8 g/dl (14.0-18.0); Mean Corpuscular Hemoglobin 29.4 pg (27.0-33.0); Mean Platelet Volume 9.8 fL (9.4-12.4); Platelet Count 330 X10*3/uL (160-400); Red Blood Count 4.36 X10*6/uL (4.60-5.80); White Blood Count 11.7 X10*3/uL (4.8-10.8)
[2023-02-04] MEDS: vancomycin HCL 1,000 MG in 0.9 % Sodium Chloride 250 ML 270 MG IV (06:42)
[2023-02-04 06:54] LABS: Anion Gap 11 (12-20); Blood Urea Nitrogen 7 mg/dL (9-16); Calcium 9.1 mg/dL (8.4-10.2); Carbon Dioxide 30 mmol/L (22-29); Chloride 101 mmol/L (96-108); Creatinine Clr Calc Pharmacy 99.9; Estimated Glomerular Filt Rate > 60; Glucose Random 102 mg/dL (60-115); Potassium 4.4 mmol/L (3.3-5.1); Sodium 138 mmol/L (135-145)
[2023-02-04 07:03] VITALS: BP 146/75; PULSE 75; RESP 18; TEMP 36.6; O2SAT 98
[2023-02-04] MEDS: Venlafaxine HCl ER 37.5 MG CAP.ER.24H PO (07:56)
[2023-02-04] MEDS: 0.9 % Sodium Chloride Flush 3 ML SYRINGE IVFLUSH (07:56)
[2023-02-04] MEDS: lisinopriL 10 MG TABLET PO (07:56)
[2023-02-04] MEDS: Gabapentin 400 MG CAPSULE 800 MG PO ×3 (07:56→19:48)
--- NOTE | 2023-02-04 07:59 | HE.PHANOTE ---
Re: methadone verification last dose 02/03/23 90 mg given at [facility] verified by Bijal Rucker on 02/04/23 @0778
[2023-02-04] MEDS: methADONE HCl 20 MG/2 ML ORAL.CONC 90 MG PO (08:35)
--- NOTE | 2023-02-04 09:44 | MHC.CM.PN ---
Addendum entered by Aicha Keller 02/05/23 13:10: PT DID NOT COMPLETE HCP, HE HAS ELECTED TO TAKE INFORMATION/DOCUMENT HOME WITH HIM INSTEAD TO DISCUSS WITH FAMILY. Original Note: PT REPORTS HE AND HIS ARE , HOWEVER HE STILL LIVES IN THE HOME WITH HER AND TWO OF THEIR SONS HE REPORTS HE IS INDEPENDENT WITH ALL CARE, HAS NO SERVICES AND NO DME HE COMPLETED A HCP TODAY NAMING HIS DAUGHTER, HAYLEY HIS AGENT PCP: HARSHIL BELLO PT REPORTS HE HOPES TO HAVE A VNA AT [place] HE DOES NOT FEEL COMPETENT TO MANAGE THE WOUND CARE HE REPORTS HE WORRIES HE WILL REINFECT THE AREA REFERRAL MADE TO [facility] PT WILL DRIVE HIMSELF HOME AT [place]
--- NOTE | 2023-02-04 11:45 | P.PNIM_ITS ---
Subjective Subjective Date of Service: 02/04/23 Interval History: seen and examined this morning follow up for RLE cellulitis still with pain and erythema, drainage from open wound Review of Systems Review of Systems: Yes all other systems are reviewed and are negative Constitutional Constitutional: Denies chills and Denies fever(s) Physical Exam Vital Signs: Vital Signs: Last Vital Signs Temp 98 F 02/04/23 07:03 Pulse 75 02/04/23 07:03 Resp 18 02/04/23 07:03 BP 146/75 H 02/04/23 07:03 Pulse Ox 98 02/04/23 07:03 O2 Del Method Room Air 02/04/23 07:03 BMI result Body Mass Index 22.0 Const: General: cooperative, comfortable, alert and awake Nutritional Appearance: average body habitus Orientation/consciousness: patient oriented x3 Resp: Effort & Inspection: normal respiratory effort, able to speak in complete sentences, no respiratory distress and no use of accessory muscles Cardio: Rate: regular rate Heart sounds: S1 normal heart sound present and S2 normal heart sound present GI: Inspection: No distended Palpation (GI): Soft to palpation and nontender Skin: Other: tenderness and some mild fluctuance around open wound Neuro: General: patient oriented x3 and CN's II-XI intact bilaterally Extrem: Other: mild RLE swelling Objective Data Active Medications Acetaminophen (Acetaminophen 325 Mg Tablet) 650 mg PO Q6H PRN PRN Reason: Pain, Mild (Pain Scale 1-3) Albuterol Sulfate (Albuterol Sulfate 90 Mcg 8 Gm Inhaler) 2 puff INHALE Q4H PRN PRN Reason: Shortness Of Breath Last Admin: 02/03/23 18:35 Dose: 2 puff Documented By: NOLBERTO Atorvastatin Calcium (Atorvastatin Calcium 80 Mg Tablet) 80 mg PO BEDTIME [facility] Last Admin: 02/03/23 21:27 Dose: 80 mg Documented By: DOBROB Baclofen (Baclofen 10 Mg Tablet) 10 mg PO TID PRN PRN Reason: Muscle Spasm Docusate Sodium (Docusate Sodium 100 Mg Capsule) 100 mg PO DAILY PRN PRN Reason: Constipation Enoxaparin Sodium (Enoxaparin Sodium 40 Mg/0.4 Ml Syringe) 40 mg SUBCUT Q24H [facility] Last Admin: 02/03/23 18:35 Dose: 40 mg Documented By: NOLBERTO Fluticasone/Vilanterol (Fluticasone/Vilanterol 100/25 Blst.W.Dev) 1 puff INHALE RDAILY [facility] Last Admin: 02/04/23 08:53 Dose: Not Given Documented By: KB Non-Admin Reason: pharmacy called Gabapentin (Gabapentin 400 Mg Capsule) 800 mg PO QID [facility] Last Admin: 02/04/23 07:56 Dose: 800 mg Documented By: YULIET Vancomycin HCl 1,000 mg/ (Sodium Chloride) 270 mls @ 270 mls/hr IV Q12H [facility] Last Infusion: 02/04/23 07:57 Dose: 0 mls/hr Documented By: YULIET Sodium Chloride (Ns) 1,000 mls @ 100 mls/hr IVCONT .Q10H [facility] Stop: 02/04/23 19:44 Lisinopril (Lisinopril 10 Mg Tablet) 10 mg PO DAILY [facility]; Protocol Last Admin: 02/04/23 07:56 Dose: 10 mg Documented By: YULIET Methadone HCl (Methadone Hcl 20 Mg/2 Ml Oral.Conc) 90 mg PO DAILY [facility] Last Admin: 02/04/23 08:35 Dose: 90 mg Documented By: YULIET Omeprazole (Omeprazole 40 Mg Capsule.Dr) 40 mg PO DAILY PRN PRN Reason: gi upset Oxycodone HCl (Oxycodone Hcl Immed Release 5 Mg Tablet) 5 mg PO Q4H PRN PRN Reason: Pain, Moderate(Pain Scale 4-6) Last Admin: 02/04/23 00:12 Dose: 5 mg Documented By: BAIRON Pharmacy Consult (Consult Rx Vancomycin Dosing) 1 each MISCELLANE DAILY PRN PRN Reason: Consult order Ropinirole HCl (Ropinirole Hcl 0.25 Mg Tablet) 1 mg PO BEDTIME [facility] Last Admin: 02/03/23 21:28 Dose: 1 mg Documented By: MIGUEL Sodium Chloride (0.9 % Sodium Chloride Flush 3 Ml Syringe) 3 ml IVFLUSH QSHIFT [facility] Last Admin: 02/04/23 07:56 Dose: 3 ml Documented By: YULIET Trazodone HCl (Trazodone Hcl 50 Mg Tablet) 150 mg PO BEDTIME PRN PRN Reason: Insomnia Last Admin: 02/03/23 21:35 Dose: 150 mg Documented By: MIGUEL Venlafaxine HCl (Venlafaxine Hcl Er 37.5 Mg Cap.Er.24h) 37.5 mg PO DAILY [facility] Last Admin: 02/04/23 07:56 Dose: 37.5 mg Documented By: YULIET Labs 02/04/23 05:34 02/04/23 05:34 Labs: Laboratory Results - last 24 hr 02/03/23 02/03/23 02/03/23 14:07 14:07 14:07 MCV 88.9 MCH 29.6 MCHC 33.3 RDW 12.7 Plt Count 402 H MPV 9.3 L Immature Gran % (Auto) 4.7 H Neut % (Auto) 81.1 H Lymph % (Auto) 8.6 L [place] % (Auto) 5.0 Eos % (Auto) 0.2 Baso % (Auto) 0.4 Lymph # (Auto) 1.2 [place] # (Auto) 0.7 Eos # (Auto) 0.0 Baso # (Auto) 0.1 Abs Immat Gran (auto) 0.67 H Absolute Neuts (auto) 11.7 H Absolute Nucleated RBC 0.000 Nucleated RBC % (auto) 0.0 Anion Gap 14 Estim Creat Clear Calc 92.4 Estimated GFR > 60 Random Glucose 99 Lactic Acid 0.6 Calcium 9.6 Total Bilirubin 0.4 AST 38 H ALT 31 Alkaline Phosphatase 100 Total Protein 7.8 Albumin 4.1 02/04/23 02/04/23 05:34 05:34 MCV 89.0 MCH 29.4 MCHC 33.0 RDW 13.0 Plt Count 330 MPV 9.8 Immature Gran % (Auto) Neut % (Auto) Lymph % (Auto) [place] % (Auto) Eos % (Auto) Baso % (Auto) Lymph # (Auto) [place] # (Auto) Eos # (Auto) Baso # (Auto) Abs Immat Gran (auto) Absolute Neuts (auto) Absolute Nucleated RBC 0.000 Nucleated RBC % (auto) 0.0 Anion Gap 11 L Estim Creat Clear Calc 99.9 Estimated GFR > 60 Random Glucose 102 Lactic Acid Calcium 9.1 Total Bilirubin AST ALT Alkaline Phosphatase Total Protein Albumin Microbiology Microbiology Results: Microbiology 02/03/23 16:54 Gram Stain - Final Leg Right Routine Culture - Preliminary Culture in progress. Assessment and Plan (1) Cellulitis: Status: Acute Plan This is a 57-year-old male with history of hypertension, hyperlipidemia, peripheral neuropathy, restless leg syndrome, chronic back pain, recent admission to [facility] for right lower extremity cellulitis and abscess who presents to the emergency department with persistent pain, erythema and drainage Sepsis secondary to purulent cellulitis of RLE mets criteria with leukocytosis and tachycardia. white count trending down, tachycardia resolved was discharged from [facility] 01/31 with po augmentin, pt reports compliance xray negative. no evidence of abscess wound culture growing gram + cocci continue IV vanco - follow renal function daily follow blood cultures ID consult pending CT to assess for any drainable fluid collection Chronic pain continue methadone, gabapentin, baclofen RLS continue ropinirole Hyperlipidemia Continue statin Asthma No acute exacerbation Continue home inhalers mood continue venlafaxine HTN continue lisinopril dvt ppx - lovenox code status - full code attending - dr. mathur Requires ongoing inpatient hospital stay for IV abx for persistent cellulitis Time Spent With Patient Time: Total time managing care of this patient today ____ minutes. Quality Stroke Does the patient have a stroke diagnosis?: No VTE Prior VTE?: No VTE Risk Level:: Medical - moderate - high VTE Device Contraindication: Treatment Not Indicated VTE Drug Contraindication: N/A - Med Ordered
[2023-02-04] MEDS: iohexoL 350 MG/ML 100 ML INFUS..BTL IV (12:17)
[2023-02-04] MEDS: 0.9 % Sodium Chloride 1,000 ML 100 ML IVCONT (12:19)
[2023-02-04 14:49] VITALS: BP 133/85; PULSE 84; RESP 18; TEMP 36.6; O2SAT 98
[2023-02-04 16:52] LABS: Vancomycin Random 11.1 mcg/mL (15-20)
--- NOTE | 2023-02-04 17:14 | HE.PHANOTE ---
Re: vanco dosing Trough is low at 11.1 but renal function is still good. Will increase dose to 1250 q12 and recheck trough 02/05 @1600
[2023-02-04] MEDS: vancomycin HCL 1,250 MG in 0.9 % Sodium Chloride 250 ML 166.67 MG IV (17:24)
[2023-02-04] MEDS: Enoxaparin Sodium 40 MG/0.4 ML SYRINGE SUBCUT (17:24)
[2023-02-04] MEDS: Atorvastatin Calcium 80 MG TABLET PO (19:48)
[2023-02-04] MEDS: rOPINIRole HCL 0.25 MG TABLET 1 MG PO (19:49)
[2023-02-04 20:00] VITALS: BP 159/90; PULSE 78; RESP 18; TEMP 36.3; O2SAT 96
--- NOTE | 2023-02-04 20:37 | PM.CNGS ---
History of Present Illness Consult details Consult date: 02/04/23 Narrative: Patient is a 57-year-old male who was hospitalized approximately a week ago for 8 days at [facility] for right lower extremity cellulitis and abscess requiring incision and drainage. He re-presented now because of persistence of symptoms. He is having right lower leg pain and swelling and discharge. Chart was reviewed patient evaluated. Patient is a plethora of comorbidities. Patient's white count on admission yesterday was 14.4, down to 11.7 today. [facility], LAT[facility] Past Medical History Medical History (Updated 02/03/23 @ 17:47 by JOE Sepulveda) Anxiety and depression Asthma Chronic pain syndrome GERD (gastroesophageal reflux disease) HLD (hyperlipidemia) HTN (hypertension) CHANI (iron deficiency anemia) Postlaminectomy syndrome Primary insomnia RLS (restless legs syndrome) Sacroiliac joint pain Sacroiliitis Vitamin D deficiency Family History Family History (Updated 02/03/23 @ 17:48 by JOE Sepulveda) Other Multiple sclerosis Surgical History Surgical History S/P lumbar fusion Social History Social History Household Members: None Do you presently have visiting nurse or other home services: No Alcohol intake: never Patient Tobacco Use Status: Never used Tobacco service: No Meds Allergies Allergy/AdvReac Type Severity Reaction Status Date / Time No Known Allergies Allergy Verified 11/23/22 13:14 Active Medications: Current Medications Acetaminophen (Acetaminophen 325 Mg Tablet) 650 mg PO Q6H PRN PRN Reason: Pain, Mild (Pain Scale 1-3) Albuterol Sulfate (Albuterol Sulfate 90 Mcg 8 Gm Inhaler) 2 puff INHALE Q4H PRN PRN Reason: Shortness Of Breath Last Admin: 02/03/23 18:35 Dose: 2 puff Atorvastatin Calcium (Atorvastatin Calcium 80 Mg Tablet) 80 mg PO BEDTIME LISA Last Admin: 02/04/23 19:48 Dose: 80 mg Baclofen (Baclofen 10 Mg Tablet) 10 mg PO TID PRN PRN Reason: Muscle Spasm Docusate Sodium (Docusate Sodium 100 Mg Capsule) 100 mg PO DAILY PRN PRN Reason: Constipation Enoxaparin Sodium (Enoxaparin Sodium 40 Mg/0.4 Ml Syringe) 40 mg SUBCUT Q24H [facility] Last Admin: 02/04/23 17:24 Dose: 40 mg Fluticasone/Vilanterol (Fluticasone/Vilanterol 100/25 Blst.W.Dev) 1 puff INHALE RDAILY [facility] Last Admin: 02/04/23 08:53 Dose: Not Given Gabapentin (Gabapentin 400 Mg Capsule) 800 mg PO QID [facility] Last Admin: 02/04/23 19:48 Dose: 800 mg Vancomycin HCl 1,250 mg/ (Sodium Chloride) 250 mls @ 166.667 mls/hr IV Q12H [facility] Last Infusion: 02/04/23 18:58 Dose: Infused Lisinopril (Lisinopril 10 Mg Tablet) 10 mg PO DAILY [facility]; Protocol Last Admin: 02/04/23 07:56 Dose: 10 mg Methadone HCl (Methadone Hcl 20 Mg/2 Ml Oral.Conc) 90 mg PO DAILY [facility] Last Admin: 02/04/23 08:35 Dose: 90 mg Omeprazole (Omeprazole 40 Mg Capsule.Dr) 40 mg PO DAILY PRN PRN Reason: gi upset Oxycodone HCl (Oxycodone Hcl Immed Release 5 Mg Tablet) 5 mg PO Q4H PRN PRN Reason: Pain, Moderate(Pain Scale 4-6) Last Admin: 02/04/23 14:45 Dose: 5 mg Pharmacy Consult (Consult Rx Vancomycin Dosing) 1 each MISCELLANE DAILY PRN PRN Reason: Consult order Ropinirole HCl (Ropinirole Hcl 0.25 Mg Tablet) 1 mg PO BEDTIME [facility] Last Admin: 02/04/23 19:49 Dose: 1 mg Sodium Chloride (0.9 % Sodium Chloride Flush 3 Ml Syringe) 3 ml IVFLUSH QSHIFT [facility] Last Admin: 02/04/23 15:45 Dose: Not Given Trazodone HCl (Trazodone Hcl 50 Mg Tablet) 150 mg PO BEDTIME PRN PRN Reason: Insomnia Last Admin: 02/03/23 21:35 Dose: 150 mg Venlafaxine HCl (Venlafaxine Hcl Er 37.5 Mg Cap.Er.24h) 37.5 mg PO DAILY [facility] Last Admin: 02/04/23 07:56 Dose: 37.5 mg Home Medications Medication Instructions Recorded Confirmed Last Taken Type atorvastatin 80 mg tablet 80 mg PO BEDTIME 06/01/22 02/03/23 Unknown History dicyclomine 10 mg capsule 10 mg PO Q6H PRN Stomach Upset 06/01/22 02/03/23 Unknown History fluticasone 250 mcg-salmeterol 50 1 ea inhalation BID 06/01/22 02/03/23 Unknown History mcg/dose blistr powdr for inhalation (Advair Diskus) lisinopril 10 mg tablet 10 mg PO DAILY 06/01/22 02/03/23 Unknown History omeprazole 40 mg capsule,delayed 40 mg PO QAM PRN gi upset 06/01/22 02/03/23 Unknown History release ondansetron HCl 4 mg tablet 4 mg PO Q8H PRN nausea 06/01/22 02/03/23 Unknown History ropinirole 0.25 mg tablet 1 mg PO BEDTIME 08/02/22 02/03/23 Unknown History trazodone 50 mg tablet 150 mg PO BEDTIME PRN Insomnia 08/02/22 02/03/23 Unknown History albuterol sulfate 90 mcg/actuation 2 inh inhalation Q4H PRN Shortness 02/03/23 02/03/23 Unknown History aerosol inhaler Of Breath amoxicillin 875 mg-potassium 1 tab PO Q12H 02/03/23 02/03/23 Unknown History clavulanate 125 mg tablet baclofen 10 mg tablet 10 mg PO TID PRN Muscle Spasm 02/03/23 02/03/23 Unknown History celecoxib 200 mg capsule 200 mg PO BID 02/03/23 02/03/23 Unknown History gabapentin 800 mg tablet 800 mg PO QID 02/03/23 02/03/23 Unknown History methadone 10 mg/mL oral concentrate 90 mg PO DAILY 02/03/23 02/04/23 02/03/23 History venlafaxine 37.5 mg 37.5 mg PO DAILY 02/03/23 02/03/23 Unknown History capsule,extended release 24 hr Physical Exam Vital Signs: Vital Signs: Last Vital Signs Temp 97.3 F 02/04/23 20:00 Pulse 78 02/04/23 20:00 Resp 18 02/04/23 20:00 BP 159/90 H 02/04/23 20:00 Pulse Ox 96 02/04/23 20:00 O2 Del Method Room Air 02/04/23 20:00 BMI result Body Mass Index 22.0 Extrem: Other: Right lower leg demonstrates significant induration and erythema. Patient has 2 open draining wounds ; 1 anteromedial and 1 mid lateral. Each was explored locally and the more medial 1 had some minimum purulence expressed. Extremities otherwise grossly neurovascularly intact Dressing was reapplied. Patient tolerated this well. Results Labs 02/04/23 05:34 02/04/23 05:34 Labs: Abnormal lab results 02/04/23 02/04/23 02/04/23 Range/Units 05:34 05:34 16:02 WBC 11.7 H (4.8-10.8) X10*3/uL RBC 4.36 L (4.60-5.80) X10*6/uL Hgb 12.8 L (14.0-18.0) g/dl Hct 38.8 L (42.0-52.0) % Carbon Dioxide 30 H (22-29) mmol/L Anion Gap 11 L (12-20) BUN 7 L (9-16) mg/dL Random Vancomycin 11.1 L (15-20) mcg/mL Short CBC 02/04/23 Range/Units 05:34 WBC 11.7 H (4.8-10.8) X10*3/uL Hgb 12.8 L (14.0-18.0) g/dl Hct 38.8 L (42.0-52.0) % Plt Count 330 (160-400) X10*3/uL BMP 02/04/23 05:34 Sodium 138 Potassium 4.4 Chloride 101 Carbon Dioxide 30 H BUN 7 L Creatinine 0.74 Calcium 9.1 All other labs normal. Assessment and Plan (1) Cellulitis: Qualifiers: Laterality: right Site of cellulitis: extremity Site of cellulitis of extremity: lower extremity Qualified Code(s): L03.115 - Cellulitis of right lower limb Status: Acute (2) Leukocytosis: Qualifiers: Leukocytosis type: unspecified Qualified Code(s): D72.829 - Elevated white blood cell count, unspecified Status: Acute Plan Current recommendation is to continue local wound care as well as elevation the right lower extremity, IV antibiotics, and direct further interventions and studies based on the patient's clinical course. Time Spent With Patient Time: Total time managing care of this patient today ____ minutes. Procedures Date of Service Date of Service: 02/04/23
--- NOTE | 2023-02-04 22:59 | P.CNID_ITS ---
History of Present Illness Data of Consult Service Date: 02/04/23 Requesting physician: Mark Read Primary Care Provider: JOE Young HPI Reason for consult: RLE redness He presents again with redness rle and thinks has fever and is more swollen. WBC is 14.4. He had been on Augmentin started on 01/21 and think got worse. He thought he had fever but no fever here. Review of Systems Review of Systems: Yes all other systems are reviewed and are negative [facility] Past Medical History Medical History Anxiety and depression Asthma Chronic pain syndrome GERD (gastroesophageal reflux disease) HLD (hyperlipidemia) HTN (hypertension) CHANI (iron deficiency anemia) Postlaminectomy syndrome Primary insomnia RLS (restless legs syndrome) Sacroiliac joint pain Sacroiliitis Vitamin D deficiency Family History Family History Other Multiple sclerosis Family history: reviewed and not pertinent Surgical History Surgical History S/P lumbar fusion Social History Social History Household Members: None Do you presently have visiting nurse or other home services: No Alcohol intake: never Patient Tobacco Use Status: Never used Tobacco service: No Meds Allergies Allergy/AdvReac Type Severity Reaction Status Date / Time No Known Allergies Allergy Verified 11/23/22 13:14 Active Medications: Current Medications Acetaminophen (Acetaminophen 325 Mg Tablet) 650 mg PO Q6H PRN PRN Reason: Pain, Mild (Pain Scale 1-3) Albuterol Sulfate (Albuterol Sulfate 90 Mcg 8 Gm Inhaler) 2 puff INHALE Q4H PRN PRN Reason: Shortness Of Breath Last Admin: 02/03/23 18:35 Dose: 2 puff Atorvastatin Calcium (Atorvastatin Calcium 80 Mg Tablet) 80 mg PO BEDTIME LISA Last Admin: 02/04/23 19:48 Dose: 80 mg Baclofen (Baclofen 10 Mg Tablet) 10 mg PO TID PRN PRN Reason: Muscle Spasm Docusate Sodium (Docusate Sodium 100 Mg Capsule) 100 mg PO DAILY PRN PRN Reason: Constipation Enoxaparin Sodium (Enoxaparin Sodium 40 Mg/0.4 Ml Syringe) 40 mg SUBCUT Q24H [facility] Last Admin: 02/04/23 17:24 Dose: 40 mg Fluticasone/Vilanterol (Fluticasone/Vilanterol 100/25 Blst.W.Dev) 1 puff INHALE RDAILY [facility] Last Admin: 02/04/23 08:53 Dose: Not Given Gabapentin (Gabapentin 400 Mg Capsule) 800 mg PO QID [facility] Last Admin: 02/04/23 19:48 Dose: 800 mg Vancomycin HCl 1,250 mg/ (Sodium Chloride) 250 mls @ 166.667 mls/hr IV Q12H [facility] Last Infusion: 02/04/23 18:58 Dose: Infused Lisinopril (Lisinopril 10 Mg Tablet) 10 mg PO DAILY [facility]; Protocol Last Admin: 02/04/23 07:56 Dose: 10 mg Methadone HCl (Methadone Hcl 20 Mg/2 Ml Oral.Conc) 90 mg PO DAILY [facility] Last Admin: 02/04/23 08:35 Dose: 90 mg Omeprazole (Omeprazole 40 Mg Capsule.Dr) 40 mg PO DAILY PRN PRN Reason: gi upset Oxycodone HCl (Oxycodone Hcl Immed Release 5 Mg Tablet) 5 mg PO Q4H PRN PRN Reason: Pain, Moderate(Pain Scale 4-6) Last Admin: 02/04/23 14:45 Dose: 5 mg Pharmacy Consult (Consult Rx Vancomycin Dosing) 1 each MISCELLANE DAILY PRN PRN Reason: Consult order Ropinirole HCl (Ropinirole Hcl 0.25 Mg Tablet) 1 mg PO BEDTIME [facility] Last Admin: 02/04/23 19:49 Dose: 1 mg Sodium Chloride (0.9 % Sodium Chloride Flush 3 Ml Syringe) 3 ml IVFLUSH QSHIFT [facility] Last Admin: 02/04/23 15:45 Dose: Not Given Trazodone HCl (Trazodone Hcl 50 Mg Tablet) 150 mg PO BEDTIME PRN PRN Reason: Insomnia Last Admin: 02/03/23 21:35 Dose: 150 mg Venlafaxine HCl (Venlafaxine Hcl Er 37.5 Mg Cap.Er.24h) 37.5 mg PO DAILY [facility] Last Admin: 02/04/23 07:56 Dose: 37.5 mg Home Medications Medication Instructions Recorded Confirmed Last Taken Type atorvastatin 80 mg tablet 80 mg PO BEDTIME 06/01/22 02/03/23 Unknown History dicyclomine 10 mg capsule 10 mg PO Q6H PRN Stomach Upset 06/01/22 02/03/23 Unknown History fluticasone 250 mcg-salmeterol 50 1 ea inhalation BID 06/01/22 02/03/23 Unknown History mcg/dose blistr powdr for inhalation (Advair Diskus) lisinopril 10 mg tablet 10 mg PO DAILY 06/01/22 02/03/23 Unknown History omeprazole 40 mg capsule,delayed 40 mg PO QAM PRN gi upset 06/01/22 02/03/23 Unknown History release ondansetron HCl 4 mg tablet 4 mg PO Q8H PRN nausea 06/01/22 02/03/23 Unknown History ropinirole 0.25 mg tablet 1 mg PO BEDTIME 08/02/22 02/03/23 Unknown History trazodone 50 mg tablet 150 mg PO BEDTIME PRN Insomnia 08/02/22 02/03/23 Unknown History albuterol sulfate 90 mcg/actuation 2 inh inhalation Q4H PRN Shortness 02/03/23 02/03/23 Unknown History aerosol inhaler Of Breath amoxicillin 875 mg-potassium 1 tab PO Q12H 02/03/23 02/03/23 Unknown History clavulanate 125 mg tablet baclofen 10 mg tablet 10 mg PO TID PRN Muscle Spasm 02/03/23 02/03/23 Unknown History celecoxib 200 mg capsule 200 mg PO BID 02/03/23 02/03/23 Unknown History gabapentin 800 mg tablet 800 mg PO QID 02/03/23 02/03/23 Unknown History methadone 10 mg/mL oral concentrate 90 mg PO DAILY 02/03/23 02/04/23 02/03/23 History venlafaxine 37.5 mg 37.5 mg PO DAILY 02/03/23 02/03/23 Unknown History capsule,extended release 24 hr Physical Exam Vital Signs: Vital Signs: Last Vital Signs Temp 97.3 F 02/04/23 20:00 Pulse 78 02/04/23 20:00 Resp 18 02/04/23 20:00 BP 159/90 H 02/04/23 20:00 Pulse Ox 96 02/04/23 20:00 O2 Del Method Room Air 02/04/23 20:00 BMI result Body Mass Index 22.0 Const: General: cooperative HEENT: Head: Yes normal to inspection Face and sinus: Yes normal facial exam Mouth: Normal oral and palatal mucosa present Teeth and gingiva: dentition normal Eyes: General: appearance normal, both eyes and all related structures Pupils: Equal, round and reactive pupils present Resp: Effort & Inspection: normal respiratory effort Cardio: Rate: regular rate Rhythm: regular rhythm GI: Palpation (GI): Soft to palpation and nontender : General: Yes no CVA tenderness Back/Spine/Pelvis: Back: no CVA tenderness Skin: General skin exam: no rashes or lesions noted Neuro: General: moves all extremities Cranial nerves: Yes Equal, round and reactive pupils present Extrem: Other: redness below knee and scabbing General: Yes normal to inspection Psych: Appearance: grossly normal Results Labs 02/04/23 05:34 02/04/23 05:34 Labs: Short CBC 02/04/23 Range/Units 05:34 WBC 11.7 H (4.8-10.8) X10*3/uL Hgb 12.8 L (14.0-18.0) g/dl Hct 38.8 L (42.0-52.0) % Plt Count 330 (160-400) X10*3/uL BMP 02/04/23 05:34 Sodium 138 Potassium 4.4 Chloride 101 Carbon Dioxide 30 H BUN 7 L Creatinine 0.74 Calcium 9.1 Microbiology Microbiology Results: Microbiology 02/03/23 14:06 Blood - Venous Blood Culture - Preliminary No growth after 24 hours. 02/03/23 14:06 Blood - Venous Blood Culture - Preliminary No growth after 24 hours. 02/03/23 16:54 Leg Right Gram Stain - Final 02/03/23 16:54 Leg Right Routine Culture - Preliminary Culture in progress. Assessment and Plan (1) Cellulitis: Qualifiers: Laterality: right Site of cellulitis: extremity Site of cellulitis of extremity: lower extremity Qualified Code(s): L03.115 - Cellulitis of right lower limb Status: Acute possible staph or strep but looks also like bruising (2) Leukocytosis: Qualifiers: Leukocytosis type: unspecified Qualified Code(s): D72.829 - Elevated white blood cell count, unspecified Status: Acute Plan po linezolid 600 bid for a week. Wound Care Time Spent With Patient Time: Total time managing care of this patient today ____ minutes.
[2023-02-05] MEDS: Baclofen 10 MG TABLET PO (00:21)
[2023-02-05 03:01] VITALS: BP 141/82; PULSE 84; RESP 18; TEMP 36.4; O2SAT 94
[2023-02-05] MEDS: vancomycin HCL 1,250 MG in 0.9 % Sodium Chloride 250 ML 166.67 MG IV (06:20)
[2023-02-05 06:43] LABS: Creatinine Clr Calc Pharmacy 107.2; Estimated Glomerular Filt Rate > 60
[2023-02-05 06:59] VITALS: BP 151/83; PULSE 88; RESP 18; TEMP 36.4; O2SAT 95
[2023-02-05 07:13] LABS: Hematocrit 38.9 % (42.0-52.0); Hemoglobin 12.9 g/dl (14.0-18.0); Mean Corpuscular HGB Conc 33.2 g/dl (31.0-36.0); Mean Corpuscular Hemoglobin 29.3 pg (27.0-33.0); Mean Corpuscular Volume 88.4 fL (80.0-98.0); Mean Platelet Volume 9.8 fL (9.4-12.4); Platelet Count 379 X10*3/uL (160-400); White Blood Count 13.6 X10*3/uL (4.8-10.8)
[2023-02-05] MEDS: Fluticasone/Vilanterol 100/25 BLST.W.DEV 1 PUFF INHALE (07:47)
[2023-02-05 07:49] VITALS: PULSE 76; RESP 16; O2SAT 98
[2023-02-05] MEDS: methADONE HCl 20 MG/2 ML ORAL.CONC 90 MG PO (08:03)
[2023-02-05] MEDS: Venlafaxine HCl ER 37.5 MG CAP.ER.24H PO (08:03)
[2023-02-05] MEDS: 0.9 % Sodium Chloride Flush 3 ML SYRINGE IVFLUSH (08:03)
[2023-02-05] MEDS: lisinopriL 10 MG TABLET PO (08:03)
[2023-02-05] MEDS: Gabapentin 400 MG CAPSULE 800 MG PO ×2 (08:03→12:58)
[2023-02-05] MEDS: Dicyclomine HCl 10 MG CAPSULE PO (08:15)
[2023-02-05] MEDS: Morphine Sulfate 2 MG/ML CARTRIDGE IVPUSH (10:19)
--- NOTE | 2023-02-05 10:51 | PM.DS ---
DS: Providers Provider Date of Service: 02/05/23 Date of admission: 02/03/23 17:32 Date of discharge: 02/05/23 Primary care physician: JOE Young Consults: 02/03/23 17:31 Consult to Infectious Diseases Routine Consulting Provider: [facility] Infectious Disease Reason for consultation: persistent cellulitis Has provider been notified: No 02/03/23 22:44 Consult to Wound Care Routine Consulting Provider: Iradia Correia Reason for consultation: non healing open wound to R caraballo 02/04/23 14:24 Consult to General Surgery Routine Consulting Provider: [facility] General Surgeons Reason for consultation: purulent RLE cellulitis ?abscess Has provider been notified: No Attending physician on discharge: Alfonso Lopez Discharging clinician: Cary Burnett DS: Diagnosis Discharge Diagnosis (1) Cellulitis: Status: Acute (2) Leukocytosis: Status: Acute DS: Summary Hospital Course Hospital Course: From H&P on day of admission This is a 57-year-old male with recent admission at [facility] for right lower extremity cellulitis who presents to the emergency department today with persistent redness and pain of his right lower extremity.? Patient was admitted from January 24 to January 31 for management of cellulitis and abscess requiring I&D on 01/28. Records obtained from [facility], no wound cultures obtained. Blood cultures were negative. patient was discharged with a week of augmentin. He has been taking his p.o. antibiotics as prescribed.? This morning he noted feeling feverish.? He reports persistent purulent drainage and ongoing erythema.? In the emergency department met sepsis criteria with leukocytosis of 14,000 and tachycardia.? Wound culture was obtained as well as blood cultures.? He was treated with IV Zosyn and the decision was made to admit him to the hospital for further management of persistent right lower extremity cellulitis. RLE cellulitis patient was started on IV vancomycin. CT scan showed possible early abscess. Wound cultures are growing Staph aureus. Blood cultures have remained negative to date. He was seen by surgery but there was no drainable fluid collection and wound remains open and draining. He was seen in evaluation by Infectious Diseases who recommended to discharge home with doxycycline (drug interactions with linezolid that was initially recommended). He was eager to return home today as he has an appointment in the pain clinic tomorrow morning that he doesn't want to miss. He will be discharged home with 7 day course of doxycycline. He will be discharged with visiting nurses to assist with daily dressing changes. He is encouraged to call and schedule follow-up appointment in the Wound Care Clinic. He has a follow-up appointment with his PCP scheduled for the near future and he is encouraged to keep that appointment. Return precautions were discussed including increasing redness, swelling or fever. Time Spent with Patient Time attestation: Total time managing care of this patient today ____ minutes. Discharge coordination time: Greater than 30 minutes Quality: Safe Use of Opioids Does Pt have an Active Cancer Diagnosis on the Problem List?: No Quality: Stroke Does the patient have a stroke diagnosis?: No Physical Exam Vital Signs: Vital Signs: Last Vital Signs Temp 97.5 F 02/05/23 06:59 Pulse 76 02/05/23 07:49 Resp 16 02/05/23 07:49 BP 151/83 H 02/05/23 06:59 Pulse Ox 95 02/05/23 06:59 O2 Del Method Room Air 02/05/23 06:59 BMI result Body Mass Index 22.0 Const: General: cooperative, comfortable, alert and awake Nutritional Appearance: average body habitus Orientation/consciousness: patient oriented x3 Resp: Effort & Inspection: normal respiratory effort, able to speak in complete sentences, no respiratory distress and no use of accessory muscles Cardio: Rate: regular rate Heart sounds: S1 normal heart sound present and S2 normal heart sound present GI: Inspection: No distended Palpation (GI): Soft to palpation and nontender Skin: Other: RLE swelling, induration improved, drainage decreasing, still with some erythema around the medial open wound Neuro: General: patient oriented x3 and CN's II-XI intact bilaterally DS: Data Data Completed and Pending Labs on day of discharge: Laboratory Results - last 24 hr 02/04/23 02/05/23 02/05/23 16:02 05:33 05:33 WBC 13.6 H RBC 4.40 L Hgb 12.9 L Hct 38.9 L MCV 88.4 MCH 29.3 MCHC 33.2 RDW 13.0 Plt Count 379 MPV 9.8 Absolute Nucleated RBC 0.000 Nucleated RBC % (auto) 0.0 Creatinine 0.69 Estim Creat Clear Calc 107.2 Estimated GFR > 60 Random Vancomycin 11.1 L Preliminary micro results at discharge 02/03/23 16:54 Routine Culture - Preliminary Leg Right Staphylococcus aureus 02/03/23 14:06 Blood Culture - Preliminary Blood - Venous No growth after 24 hours. 02/03/23 14:06 Blood Culture - Preliminary Blood - Venous No growth after 24 hours. Discharge Plan Discharge Anticipated Discharge Date/Time: 02/05/23 10:30 Patient Disposition: Home Health Service Discharge Diagnosis: RLE cellulitis Referrals: Iraida Correia MD [Physician] - 1 Week Claude Deluca PA [Primary Care Provider] - 1 Week Discharge Medications: New doxycycline hyclate 100 mg tablet 100 mg PO BID 7 Days Qty: 14 0RF Continued celecoxib 200 mg capsule 200 mg PO BID venlafaxine 37.5 mg capsule,extended release 24hr 37.5 mg PO DAILY gabapentin 800 mg tablet 800 mg PO QID baclofen 10 mg tablet 10 mg PO TID PRN (Reason: Muscle Spasm) methadone 10 mg/mL Concentrate 90 mg PO DAILY albuterol sulfate 90 mcg/actuation Hfa Aerosol Inhaler 2 inh INHALATION Q4H PRN (Reason: Shortness Of Breath) fluticasone propion-salmeterol [Advair Diskus] 250-50 mcg/dose blister with device 1 ea inhalation BID ondansetron HCl 4 mg tablet 4 mg PO Q8H PRN (Reason: nausea) dicyclomine 10 mg capsule 10 mg PO Q6H PRN (Reason: Stomach Upset) lisinopril 10 mg tablet 10 mg PO DAILY omeprazole 40 mg capsule,delayed release(DR/EC) 40 mg PO QAM PRN (Reason: gi upset) atorvastatin 80 mg tablet 80 mg PO BEDTIME trazodone 50 mg tablet 150 mg PO BEDTIME PRN (Reason: Insomnia) ropinirole 0.25 mg tablet 1 mg PO BEDTIME Discontinued amoxicillin-pot clavulanate 875-125 mg tablet 1 tab PO Q12H Discharge Orders: Discharge Order (Routine); Ordered 02/05/23 Ordered By: Cary Burnett Activity on Discharge: As tolerated Stand Alone Forms: Patient Portal Discharge page Care Plan Goals: resolution of infection Health Concerns: RLE cellulitis Plan of Treatment: take doxycycline twice daily as prescribed recommend xeroform dressing with kerlix wrap changed daily. call to schedule a follow up appointment with wound care clinic call to schedule a follow up appointment with PCP If redness, swelling worsens or you develop fever call PCP or return to ED. Assessment: see discharge summary
--- NOTE | 2023-02-05 11:00 | P.F2F_ITS ---
Service Date Service Date: 02/05/23 Encounter Date of encounter: 02/05/23 Reasons for Services Signs and symptoms assessed: needs detention for wound care. RLE xeroform dressing with kerlix wrap Reason for detention: wound care MD Overseeing Care: Claude Deluca Homebound: Leaving the home is medically contraindicated at this time without the asist of a device and/or another person due th the listed conditions above and below. Reason homebound: pain with ambulation Certification: Based on the above findings, I certify that this patient is confined to the home and needs intermittent detention care, physical therapy and/or speech therapy, or continues to need occupational therapy. The patient is under my care, and I have initiated the establishment of the plan of care. The patient will be followed by a physician who will periodically review the plan of care. Time Spent With Patient Time: Total time managing care of this patient today ____ minutes.
--- NOTE | 2023-02-05 15:45 | MHC.CM.PN ---
Addendum entered by Aicha Keller 02/05/23 15:46: PT DISCHARGED HOME TODAY WITH [facility] NOTIFIED VIA [employer] [facility] UNABLE TO VERIFY PCP/INSURANCE BEFORE MONDAY PT IS AWARE THE [facility] CANNOT COME DAILY AND HE WILL NEED TO MANAGE HIS WOUND CARE ON SOME DAYS HE IS ALSO AWARE THE [facility] HAS ACCEPTED PENDING PCP AND INSURANCE VERIFICATION PT REPORTS HE HAS SEEN HIS PCP IN THE PAST YEAR AND IS SURE HE IS ACTIVE PT ARRANGED TRANSPORT Original Note: CM MET WITH PT ON 02/04/23 PT REPORTS HE AND HIS ARE , HOWEVER HE STILL LIVES IN THE HOME WITH HER AND TWO OF THEIR SONS HE REPORTS HE IS INDEPENDENT WITH ALL C[employer], HAS NO SERVICES AND NO DME PCP: HARSHIL BELLO PT REPORTS HE HOPES TO HAVE A VNA AT DC HE DOES NOT FEEL COMPETENT TO MANAGE THE WOUND CARE HE REPORTS HE WORRIES HE WILL REINFECT THE AREA REFERRAL MADE TO [facility] PT WILL DRIVE HIMSELF HOME AT [place]
== END 2023-02-05 12:56 | disposition home health service (06) | DRG 720 ==
LOC: HO.ED 17:23 → HO.EDOVER 17:40 → HO.S3 18:32
PROVIDERS: Registered Nurse Emergency; Admitting Provider Physician Assistant Medical; Emergency Provider Emergency Medicine; PCP Physician Assistant Medical; Visit Provider Physician Assistant Medical
DX: A41.9 Sepsis, unspecified organism (principal); L03.115 Cellulitis of right lower limb; G25.81 Restless legs syndrome; E78.5 Hyperlipidemia, unspecified; J45.909 Unspecified asthma, uncomplicated; I10 Essential (primary) hypertension; B95.61 Methicillin susceptible Staphylococcus aureus infection as the cause of diseases classified elsewhere; F11.20 Opioid dependence, uncomplicated; G89.4 Chronic pain syndrome; K21.9 Gastro-esophageal reflux disease without esophagitis; Z79.51 Long term (current) use of inhaled steroids; Z79.899 Other long term (current) drug therapy
CPT/HCPCS: 36415; 73590; 73701; 80048; 80053; 80202; 82565; 83605; 85025; 85027; 87040; 87070; 87077; 87186; 87205; 93005; 94640; 99285; J1650; J2270; J2543; J3370; J3371; Q9967

== ENCOUNTER → 2023-02-03 17:32 | Outpatient (BNV) | payer OTHER, SELFPAY | PROVIDERS: Admitting Provider Physician Assistant Medical; Emergency Provider Emergency Medicine; PCP Physician Assistant Medical; Visit Provider Surgery | DX: L03.115 Cellulitis of right lower limb (principal); D72.829 Elevated white blood cell count, unspecified | CPT/HCPCS: 99222 ==

== ENCOUNTER → 2023-02-03 17:32 | Outpatient (BNV) | payer OTHER, SELFPAY | PROVIDERS: Admitting Provider Physician Assistant Medical; Emergency Provider Emergency Medicine; PCP Physician Assistant Medical; Visit Provider Physician Assistant Medical | DX: L03.115 Cellulitis of right lower limb (principal); D72.829 Elevated white blood cell count, unspecified | CPT/HCPCS: 99223; 99232; 99239; G0180 ==

== ENCOUNTER → 2023-02-03 17:32 | Outpatient (BNV) | payer OTHER, SELFPAY | PROVIDERS: Admitting Provider Physician Assistant Medical; Emergency Provider Emergency Medicine; PCP Physician Assistant Medical; Visit Provider Internal Medicine | DX: L03.115 Cellulitis of right lower limb (principal); D72.829 Elevated white blood cell count, unspecified | CPT/HCPCS: 99222 ==

== ENCOUNTER 2023-02-12 21:25 | Emergency (ER) | payer OTHER, SELFPAY ==
[2023-02-12 21:33] VITALS: BP 134/87; BP 153/97; PULSE 70; PULSE 73; RESP 20; TEMP 37; O2SAT 100; O2SAT 95; BMI 23.3
--- NOTE | 2023-02-12 22:57 | ED.GENADULT ---
HPI - General Adult General Chief complaint: General Medical Stated complaint: weakness Time Seen by Provider: 02/12/23 22:06 Source: patient Mode of arrival: EMS History of Present Illness HPI narrative: 57-year-old male who experienced a panic attack and took 1 mg of Ativan that he states he purchased online. According to EMS when they arrived patient was somnolent with a respiratory rate of 6-7 breaths a minute. Patient was given IV Narcan at that time and patient then became arousable but nauseous and now states that he is feeling better. Patient has noted right lower extremity erythema a small wound and is currently being seen at the [facility] with the last appointment of 02/09. Related Data Home Medications Medication Instructions Recorded Confirmed atorvastatin 80 mg tablet 80 mg PO BEDTIME 06/01/22 02/03/23 dicyclomine 10 mg capsule 10 mg PO Q6H PRN Stomach Upset 06/01/22 02/03/23 fluticasone 250 mcg-salmeterol 50 1 ea inhalation BID 06/01/22 02/03/23 mcg/dose blistr powdr for inhalation (Advair Diskus) lisinopril 10 mg tablet 10 mg PO DAILY 06/01/22 02/03/23 omeprazole 40 mg capsule,delayed 40 mg PO QAM PRN gi upset 06/01/22 02/03/23 release ondansetron HCl 4 mg tablet 4 mg PO Q8H PRN nausea 06/01/22 02/03/23 ropinirole 0.25 mg tablet 1 mg PO BEDTIME 08/02/22 02/03/23 trazodone 50 mg tablet 150 mg PO BEDTIME PRN Insomnia 08/02/22 02/03/23 albuterol sulfate 90 mcg/actuation 2 inh inhalation Q4H PRN Shortness 02/03/23 02/03/23 aerosol inhaler Of Breath baclofen 10 mg tablet 10 mg PO TID PRN Muscle Spasm 02/03/23 02/03/23 celecoxib 200 mg capsule 200 mg PO BID 02/03/23 02/03/23 gabapentin 800 mg tablet 800 mg PO QID 02/03/23 02/03/23 methadone 10 mg/mL oral concentrate 90 mg PO DAILY 02/03/23 02/04/23 venlafaxine 37.5 mg 37.5 mg PO DAILY 02/03/23 02/03/23 capsule,extended release 24 hr Previous Rx's Medication Instructions Recorded doxycycline hyclate 100 mg tablet 100 mg PO BID 7 days #14 tabs 02/05/23 Allergies Allergy/AdvReac Type Severity Reaction Status Date / Time No Known Allergies Allergy Verified 11/23/22 13:14 Review of Systems Review of Systems: Pertinent positives and negatives as stated in [facility] Past Medical History Source: nursing notes reviewed Medical History Anxiety and depression Asthma Chronic pain syndrome GERD (gastroesophageal reflux disease) HLD (hyperlipidemia) HTN (hypertension) CHANI (iron deficiency anemia) Postlaminectomy syndrome Primary insomnia RLS (restless legs syndrome) Sacroiliac joint pain Sacroiliitis Vitamin D deficiency Surgical History S/P lumbar fusion Family History Family History Other Multiple sclerosis Social History Social History Household Members: None Do you presently have visiting nurse or other home services: No Alcohol intake: never Patient Tobacco Use Status: Never used Tobacco Smoked in Last 30 Days: No Use of substances other than those prescribed or required for medical reasons: Yes Substance Use Type: Marijuana Substance Use Frequency: Occasionally Advance Directives: No Advance Directives Information Provided: Yes service: No Physical Exam ED Vital Signs: Vital Signs - 24 hr 02/12/23 21:33 Temperature 98.6 F Pulse Rate 73 Respiratory Rate 20 Blood Pressure 134/87 Pulse Oximetry 95 Oxygen Delivery Method Room Air BMI result Body Mass Index 23.3 VITAL SIGNS: Reviewed. GENERAL: Well developed, well nourished, in no acute distress. HEAD: Normocephalic/atraumatic EYES: PERRLA, EOMI EARS: Ext canals without abnormality NOSE: Nares patent bilateral OROPHARYNX: no oral lesions noted, posterior pharynx clear NECK: Supple, no adenopathy LUNGS: Normal breath sounds. No adventitious sounds or accessory muscle use. SpO2<95> CARDIOVASCULAR: Regular rate and rhythm without noted murmurs ABDOMEN: Soft, non-tender, non-distended with bowel sounds. MUSCULOSKELETAL: No tenderness, deformities, or effusions noted on gross inspection. EXTREMITIES: No cyanosis, clubbing or edema. RLE: Erythema, 2 cm ulcer noted to the medial aspect of the proximal right lower extremity SKIN: Inspection of the skin reveals no rashes NEUROLOGIC: Alert and oriented x 3. Strength and sensation to light touch were grossly intact x 4. Medical Decision Making Medical Decision Making [facility] Narrative: 57-year-old male with history and clinical presentation consistent with over medication with Ativan although questionable given the fact that Narcan should not reverse Ativan. Patient is definitely more awake, respiratory rate is greater than 10, patient is noted to be oxygenating well and is currently on antibiotics for his right lower extremity cellulitis. Reviewed patient's medication list and he does appear to be on methadone. UDS+ benzo/marijuana At this time patient will be discharged home with home Narcan and instructions to follow-up with the [facility] as scheduled Differential Diagnosis Differential Diagnoses: The differential diagnosis associated with the presentation includes Please see the discussion above Admission/Observation Consideration of admission/observation: Escalation of care including admission/observation considered Please see the discussion above Lab Data [facility] Lab Attestation statement: I reviewed the patient's lab results. Please see the discussion above Labs: Lab Results 02/12/23 Range/Units 10:57 Urine Opiates Screen Not Detected (Not Detect) Urine Fentanyl Screen Not Detected (Not Detect) Ur Barbiturates Screen Not Detected (Not Detect) Ur Phencyclidine Scrn Not Detected (Not Detect) Ur Amphetamines Screen Not Detected (Not Detect) U Benzodiazepines Scrn POSITIVE H (Not Detect) Urine Cocaine Screen Not Detected (Not Detect) U Marijuana (THC) Screen POSITIVE H (Not Detect) External Record Review External record reviewed: Outpatient record, Prior outpatient labs and Prior outpatient radiology Discharge Plan Discharge Clinical Impression: Accidental overdose, Cellulitis Patient Disposition: Home, Self-Care Instructions: Cellulitis (ED), Adult Overdose (ED) Additional Instructions: 1. Resume all home medications as prescribed. 2. Continue to take your antibiotics as prescribed. 3. Continue to keep your scheduled old wound care appointments. Return to the ER for any worsening symptoms. Prescriptions: No Action celecoxib 200 mg capsule 200 mg PO BID venlafaxine 37.5 mg capsule,extended release 24hr 37.5 mg PO DAILY gabapentin 800 mg tablet 800 mg PO QID baclofen 10 mg tablet 10 mg PO TID PRN (Reason: Muscle Spasm) methadone 10 mg/mL Concentrate 90 mg PO DAILY albuterol sulfate 90 mcg/actuation Hfa Aerosol Inhaler 2 inh INHALATION Q4H PRN (Reason: Shortness Of Breath) doxycycline hyclate 100 mg tablet 100 mg PO BID 7 Days Qty: 14 0RF fluticasone propion-salmeterol [Advair Diskus] 250-50 mcg/dose blister with device 1 ea inhalation BID ondansetron HCl 4 mg tablet 4 mg PO Q8H PRN (Reason: nausea) dicyclomine 10 mg capsule 10 mg PO Q6H PRN (Reason: Stomach Upset) lisinopril 10 mg tablet 10 mg PO DAILY omeprazole 40 mg capsule,delayed release(DR/EC) 40 mg PO QAM PRN (Reason: gi upset) atorvastatin 80 mg tablet 80 mg PO BEDTIME trazodone 50 mg tablet 150 mg PO BEDTIME PRN (Reason: Insomnia) ropinirole 0.25 mg tablet 1 mg PO BEDTIME
[2023-02-12 23:11] LABS: Amphetamine Screen Urine Not Detected (Not Detect); Barbiturates, Urine Not Detected (Not Detect); Benzodiazepines Screen Urine POSITIVE (Not Detect); Cannabinoid Screen Urine POSITIVE (Not Detect); Cocaine Screen Urine Not Detected (Not Detect); Fentanyl, urine Not Detected (Not Detect); Opiate Screen Urine Not Detected (Not Detect); Phencyclidine Screen Urine Not Detected (Not Detect)
[2023-02-13 00:27] VITALS: BP 147/80; PULSE 96; RESP 15; O2SAT 96
== END 2023-02-13 00:39 | disposition home or self-care (01) ==
PROVIDERS: Emergency Provider Student in an Organized Health Care Education/Training Program
DX: T42.4X1A Poisoning by benzodiazepines, accidental (unintentional), initial encounter (principal); L03.115 Cellulitis of right lower limb; Y92.9 Unspecified place or not applicable; Z79.899 Other long term (current) drug therapy
CPT/HCPCS: 80307; 99284

== ENCOUNTER 2023-02-16 08:42 | Outpatient (RCR) | payer OTHER, SELFPAY | END 2023-03-14 16:06 | disposition home or self-care (01) | LOC: HO.WCC 08:42 | PROVIDERS: PCP Physician Assistant Medical; Visit Provider Surgery | DX: L97.812 Non-pressure chronic ulcer of other part of right lower leg with fat layer exposed (principal); L03.115 Cellulitis of right lower limb; I10 Essential (primary) hypertension; G62.9 Polyneuropathy, unspecified; Z79.2 Long term (current) use of antibiotics; Z79.899 Other long term (current) drug therapy | CPT/HCPCS: 11042; 99212 ==

== ENCOUNTER 2023-02-23 11:05 | Emergency (ER) | payer OTHER, SELFPAY ==
[2023-02-23 11:11] VITALS: BP 168/100; PULSE 69; RESP 19; TEMP 36.5; O2SAT 97; BMI 21.5
--- NOTE | 2023-02-23 11:16 | ED_ITS ---
HPI - General Adult General Chief complaint: Dizziness Stated complaint: dizzy, nausea, weak Time Seen by Provider: 02/23/23 12:13 Source: patient Mode of arrival: ambulatory Limitations: no limitations History of Present Illness HPI narrative: 57-year-old male presents with episodes of dizziness/lightheadedness, palpitations and generalized weakness. Patient reports several months with a 30 lb unintentional weight loss. He has been she is treated with antibiotics prolonged standing cellulitis of the right lower extremity which is significantly improved in followed by wound care. He reports that the antibiotics he believes causing to have nausea. He does report diminished appetite but he does force himself to eat. He has had no recent fevers or chills but has had these episodes of lightheadedness and generalized weakness that typically last about an hour. They appear to be unprovoked. Symptoms associated with palpitations. Denies any chest pain or difficulty breathing which she has episodes. He denies any lower extremity edema. Patient also has longstanding back pain. Recently diagnosed with upper lumbar/thoracic spinal stenosis. He is due to have a cortisone injection. His pain is severe and daily. It does appear to be worse with movement. He takes Celebrex which he is not sure if it helps or not, Tylenol, methadone. He has no new changes of pain and no new neurologic deficits. Related Data Home Medications Medication Instructions Recorded Confirmed atorvastatin 80 mg tablet 80 mg PO BEDTIME 06/01/22 02/03/23 dicyclomine 10 mg capsule 10 mg PO Q6H PRN Stomach Upset 06/01/22 02/03/23 fluticasone 250 mcg-salmeterol 50 1 ea inhalation BID 06/01/22 02/03/23 mcg/dose blistr powdr for inhalation (Advair Diskus) lisinopril 10 mg tablet 10 mg PO DAILY 06/01/22 02/03/23 omeprazole 40 mg capsule,delayed 40 mg PO QAM PRN gi upset 06/01/22 02/03/23 release ondansetron HCl 4 mg tablet 4 mg PO Q8H PRN nausea 06/01/22 02/03/23 ropinirole 0.25 mg tablet 1 mg PO BEDTIME 08/02/22 02/03/23 trazodone 50 mg tablet 150 mg PO BEDTIME PRN Insomnia 08/02/22 02/03/23 albuterol sulfate 90 mcg/actuation 2 inh inhalation Q4H PRN Shortness 02/03/23 02/03/23 aerosol inhaler Of Breath baclofen 10 mg tablet 10 mg PO TID PRN Muscle Spasm 02/03/23 02/03/23 gabapentin 800 mg tablet 800 mg PO QID 02/03/23 02/03/23 methadone 10 mg/mL oral concentrate 90 mg PO DAILY 02/03/23 02/04/23 venlafaxine 37.5 mg 37.5 mg PO DAILY 02/03/23 02/03/23 capsule,extended release 24 hr Previous Rx's Medication Instructions Recorded doxycycline hyclate 100 mg tablet 100 mg PO BID 7 days #14 tabs 02/05/23 meloxicam 15 mg tablet 15 mg PO DAILY #14 tabs 02/23/23 Allergies Allergy/AdvReac Type Severity Reaction Status Date / Time No Known Allergies Allergy Verified 02/23/23 11:11 Review of Systems 2 Review of Systems: CONSTITUTIONAL: Denies weight loss, fever and chills. HEENT: Denies changes in vision and hearing. RESPIRATORY: Denies SOB and cough. CV: + palpitations no CP. GI: Denies abdominal pain, nausea, vomiting and diarrhea. : Denies dysuria and urinary frequency. MSK: + myalgia and joint pain. SKIN: Denies rash and pruritus. NEUROLOGICAL: Denies headache and syncope. PSYCHIATRIC: Denies recent changes in mood. Denies anxiety and depression. All other ROS are negative unless in HPI PMFSH Past Medical History Medical History RLS (restless legs syndrome) GERD (gastroesophageal reflux disease) Asthma Primary insomnia Anxiety and depression CHANI (iron deficiency anemia) Vitamin D deficiency HLD (hyperlipidemia) HTN (hypertension) Sacroiliac joint pain Sacroiliitis Chronic pain syndrome Postlaminectomy syndrome Surgical History S/P lumbar fusion Family History Family History Other Multiple sclerosis Social History Social History Household Members: None Do you presently have visiting nurse or other home services: No Alcohol intake: never Patient Tobacco Use Status: Never used Tobacco Smoked in Last 30 Days: No Use of substances other than those prescribed or required for medical reasons: No Substance Use Type: Marijuana Advance Directives: No service: No Physical Exam ED Vital Signs: Vital Signs - 24 hr 02/23/23 11:11 02/23/23 12:27 02/23/23 12:28 Temperature 97.7 F Pulse Rate 69 61 72 Respiratory Rate 19 Blood Pressure 168/100 H 155/89 H 141/93 H Pulse Oximetry 97 Oxygen Delivery Method Room Air 02/23/23 12:28 02/23/23 12:57 Temperature 98.2 F Pulse Rate 61 100 Respiratory Rate 20 Blood Pressure 147/93 H 135/97 H Pulse Oximetry 100 Oxygen Delivery Method Room Air BMI result Body Mass Index 21.5 GEN: Well developed, no acute distress, alert, oriented HEENT: Normocephalic, atraumatic, normal external ears, nose appears normal, no oropharyngeal edema or exudates Eyes: Normal to appearance Neck: Supple, no lymphadenopathy Respiratory: Talks in complete sentences, no respiratory distress, clear to auscultation bilaterally Cardiovascular: Regular rate and rhythm, no murmurs rubs or gallops Abdomen: Soft, nontender, nondistended, no guarding, no rebound Back: No CVA tenderness Extremities: No clubbing cyanosis or edema Neurologic: No focal neurologic deficits, cranial nerves 2-12 intact, strength is 5/5 bilaterally Skin: No rash Course Course Course Narrative: This is an RME: Additional HPI, ROS, PE not included below will be deferred to primary provider. This is a 57 y/o M, with a hx of asthma, hyperlipidemia, hypertension, iron deficiency anemia, presenting to the emergency department with complaints of dizziness, generalized weakness, nausea x1 week. Patient states that the dizziness is constant. He was currently being seen at the wound clinic across the street for chronic wound which he is currently on antibiotics for and has been improving was sent to the ER due to his symptoms. He has no chest pain or shortness of breath. Blood pressure 168/100 all other vital signs within normal limits. Plan: Labs, EKG, UA ordered Reevaluation(s) Reevaluation #1: The workup is complete. EKG demonstrates no evidence of cardiac ischemia or cardiac dysrhythmia. His are it was 70. He is not orthostatic. There is no significant anemia or electrolyte deficiency. Etiology of his symptoms is not entirely elucidated at this time. I discussed all results with the patient. Patient will follow-up with Cardiology neurology for further evaluation. We will switch him from Celebrex meloxicam for his chronic back pain. Time: 13:07 Medical Decision Making Medical Decision Making [facility] Narrative: 57-year-old male presents with lightheadedness, palpitations. Examination is unremarkable. Vital signs were hypertensive but patient has a history of hypertension on lisinopril. His EKG is nonischemic in no evidence of cardiac dysrhythmia. Plan will be to obtain routine laboratory testing to rule out anemia, hyponatremia, hypokalemia, glucose related issues. Will continue to monitor the patient. I did offer IV fluids following normal orthostatic vital signs however he would prefer not to have any additional needles at this time. Other differential diagnosis could include cardiac dysrhythmia, ischemia. Differential Diagnosis Differential Diagnoses: The differential diagnosis associated with the presentation includes (See above) Admission/Observation Consideration of admission/observation: Escalation of care including admission/observation considered Lab Data [facility] Lab Attestation statement: I reviewed the patient's lab results. 02/23/23 11:28 02/23/23 11:28 Labs: Lab Results 02/23/23 Range/Units 11:28 WBC 5.7 (4.8-10.8) X10*3/uL RBC 4.75 (4.60-5.80) X10*6/uL Hgb 14.0 (14.0-18.0) g/dl Hct 41.8 L (42.0-52.0) % MCV 88.0 (80.0-98.0) fL MCH 29.5 (27.0-33.0) pg MCHC 33.5 (31.0-36.0) g/dl RDW 13.0 (11.0-16.0) % Plt Count 187 D (160-400) X10*3/uL MPV 10.3 (9.4-12.4) fL Immature Gran % (Auto) 0.2 (0.0-0.4) % Neut % (Auto) 72.8 (45-73) % Lymph % (Auto) 15.2 L (20-40) % [place] % (Auto) 10.8 (2-11) % Eos % (Auto) 0.7 (0-4) % Baso % (Auto) 0.3 (0-2) % Lymph # (Auto) 0.9 L (1.2-4.9) X10*3/uL [place] # (Auto) 0.6 (0.1-1.2) X10*3/uL Eos # (Auto) 0.0 (0.0-0.4) X10*3/uL Baso # (Auto) 0.0 (0.0-0.2) X10*3/uL Abs Immat Gran (auto) 0.01 (0.00-0.03) X10*3/uL Absolute Neuts (auto) 4.2 (2.0-8.3) x10*3/uL Absolute Nucleated RBC 0.000 (0.0-0.012) X10*3/uL Nucleated RBC % (auto) 0.0 (0.0-0.2) /100WBC Sodium 134 L (135-145) mmol/L Potassium 4.1 (3.3-5.1) mmol/L Chloride 104 (96-108) mmol/L Carbon Dioxide 32 H (22-29) mmol/L Anion Gap 2 L (12-20) BUN 10 (9-16) mg/dL Creatinine 0.73 (0.5-1.4) mg/dL Estim Creat Clear Calc 95.7 Estimated GFR > 60 Random Glucose 74 (60-115) mg/dL Calcium 9.3 (8.4-10.2) mg/dL Magnesium 2.2 (1.6-2.6) mg/dL Total Bilirubin 0.4 (0.0-1.0) mg/dL Direct Bilirubin 0.2 (0.0-0.5) mg/dL AST 23 (5-37) U/L ALT 28 (0-40) U/L Alkaline Phosphatase 67 (39-117) U/L Troponin I High Sens < 2.7 (<3.5-35.0) ng/L Total Protein 6.6 (6.5-8.0) g/dL Albumin 4.0 (3.5-5.0) g/dL Lipase 12 (8-78) U/L Urine Opiates Screen Not Detected (Not Detect) Urine Fentanyl Screen Not Detected (Not Detect) Ur Barbiturates Screen Not Detected (Not Detect) Ur Phencyclidine Scrn Not Detected (Not Detect) Ur Amphetamines Screen Not Detected (Not Detect) U Benzodiazepines Scrn POSITIVE H (Not Detect) Urine Cocaine Screen Not Detected (Not Detect) U Marijuana (THC) Screen POSITIVE H (Not Detect) Ethyl Alcohol < 10 mg/dL Independent Interpretation I performed an independent interpretation of an: EKG (Normal sinus rhythm heart rate 70, no acute ST elevations depressions, normal intervals) Prescription Management I considered prescription management with: Pain Medication Chronic Conditions Patient?s care impacted by: Hypertension Discharge Plan Discharge Clinical Impression: Lightheadedness, Palpitations, Chronic back pain Patient Disposition: Home, Self-Care Instructions: Heart Palpitations (ED), Lightheadedness (ED), Chronic Back Pain (DC) Prescriptions: New meloxicam 15 mg tablet 15 mg PO DAILY Qty: 14 0RF Discontinued celecoxib 200 mg capsule 200 mg PO BID No Action venlafaxine 37.5 mg capsule,extended release 24hr 37.5 mg PO DAILY gabapentin 800 mg tablet 800 mg PO QID baclofen 10 mg tablet 10 mg PO TID PRN (Reason: Muscle Spasm) methadone 10 mg/mL Concentrate 90 mg PO DAILY albuterol sulfate 90 mcg/actuation Hfa Aerosol Inhaler 2 inh INHALATION Q4H PRN (Reason: Shortness Of Breath) doxycycline hyclate 100 mg tablet 100 mg PO BID 7 Days Qty: 14 0RF fluticasone propion-salmeterol [Advair Diskus] 250-50 mcg/dose blister with device 1 ea inhalation BID ondansetron HCl 4 mg tablet 4 mg PO Q8H PRN (Reason: nausea) dicyclomine 10 mg capsule 10 mg PO Q6H PRN (Reason: Stomach Upset) lisinopril 10 mg tablet 10 mg PO DAILY omeprazole 40 mg capsule,delayed release(DR/EC) 40 mg PO QAM PRN (Reason: gi upset) atorvastatin 80 mg tablet 80 mg PO BEDTIME trazodone 50 mg tablet 150 mg PO BEDTIME PRN (Reason: Insomnia) ropinirole 0.25 mg tablet 1 mg PO BEDTIME Referrals: Mandi Bhakta MD [Physician] - Claude Deluca PA [Primary Care Provider] - 1 week Owen White MD [Physician] -
--- NOTE | 2023-02-23 11:17 | ECG_ITS ---
Test Reason : dizziness' Blood Pressure : / mmHG Vent. Rate : 070 BPM Atrial Rate : 070 BPM P-R Int : 174 ms QRS Dur : 068 ms QT Int : 372 ms P-R-T Axes : 044 029 034 degrees QTc Int : 401 ms Normal sinus rhythm Normal ECG When compared with ECG of 03-FEB-2023 13:58, No significant change was found Referred By: Noemi Bravo Electronically Signed By:EDMUNDO CHANDRA
[2023-02-23 11:37] LABS: MANUAL DIFF FLAG NO
[2023-02-23 11:39] LABS: Basophils Percent Auto 0.3 % (0-2); Eosinophils Percent Auto 0.7 % (0-4); Hematocrit 41.8 % (42.0-52.0); Imm Gran Abs Auto 0.01 X10*3/uL (0.00-0.03); Imm Gran Pct Auto 0.2 % (0.0-0.4); Lymphocytes Absolute Auto 0.9 X10*3/uL (1.2-4.9); Lymphocytes Percent Auto 15.2 % (20-40); Mean Corpuscular HGB Conc 33.5 g/dl (31.0-36.0); Mean Corpuscular Hemoglobin 29.5 pg (27.0-33.0); Mean Platelet Volume 10.3 fL (9.4-12.4); Monocytes Absolute Auto 0.6 X10*3/uL (0.1-1.2); Monocytes Percent Auto 10.8 % (2-11); Neutrophils Absolute Auto 4.2 x10*3/uL (2.0-8.3); Neutrophils Percent Auto 72.8 % (45-73); Platelet Count 187 X10*3/uL (160-400); Red Blood Count 4.75 X10*6/uL (4.60-5.80); White Blood Count 5.7 X10*3/uL (4.8-10.8)
[2023-02-23 11:48] LABS: Amphetamine Screen Urine Not Detected (Not Detect); Barbiturates, Urine Not Detected (Not Detect); Benzodiazepines Screen Urine POSITIVE (Not Detect); Cannabinoid Screen Urine POSITIVE (Not Detect); Cocaine Screen Urine Not Detected (Not Detect); Fentanyl, urine Not Detected (Not Detect); Opiate Screen Urine Not Detected (Not Detect); Phencyclidine Screen Urine Not Detected (Not Detect)
[2023-02-23 11:59] LABS: Alanine Aminotransferase 28 U/L (0-40); Alkaline Phosphatase 67 U/L (39-117); Anion Gap 2 (12-20); Aspartate Amino Transferase 23 U/L (5-37); Bilirubin Direct 0.2 mg/dL (0.0-0.5); Bilirubin Total 0.4 mg/dL (0.0-1.0); Blood Urea Nitrogen 10 mg/dL (9-16); Calcium 9.3 mg/dL (8.4-10.2); Carbon Dioxide 32 mmol/L (22-29); Chloride 104 mmol/L (96-108); Creatinine Clr Calc Pharmacy 95.7; Estimated Glomerular Filt Rate > 60; Ethanol < 10 mg/dL; Glucose Random 74 mg/dL (60-115); Lipase 12 U/L (8-78); Magnesium 2.2 mg/dL (1.6-2.6); Potassium 4.1 mmol/L (3.3-5.1); Sodium 134 mmol/L (135-145); Total Protein 6.6 g/dL (6.5-8.0)
[2023-02-23 12:03] LABS: Troponin-I High Sensitivity < 2.7 ng/L (<3.5-35.0)
[2023-02-23 12:27] VITALS: BP 155/89; PULSE 61
[2023-02-23 12:28] VITALS: BP 141/93; BP 147/93; PULSE 61; PULSE 72
[2023-02-23 12:57] VITALS: BP 135/97; PULSE 100; RESP 20; TEMP 36.8; O2SAT 100
[2023-02-23] MEDS: 0.9 % Sodium Chloride 1,000 ML 999 ML IV (13:51)
[2023-02-23] MEDS: ondansetron HCL 4 MG/2 ML VIAL IVPUSH (13:51)
[2023-02-23 15:36] VITALS: BP 130/78; PULSE 67; RESP 16; TEMP 36.8; O2SAT 98
--- NOTE | 2023-02-23 15:37 | MHC.EDTECH ---
THIS PCT ASSUMED CARE OF PT AT 1500 ,VITALS SIGN TAKEN ,URINAL EMPTY 1000 ML .
[2023-02-23] MEDS: Ketorolac Tromethamine 15 MG/ML VIAL IVPUSH (15:50)
--- NOTE | 2023-02-23 15:59 | PC.NURSE ---
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 Pt continues to have multiple complaints every time staff enters room, Pt educated that he needs to follow up with pcp and specialist, as his work up has been negative, and there is no other orders to be placed at this time. Provider at bedside multiple times, with patient. Pt given education at d/c, IV removed.
== END 2023-02-23 16:03 | disposition home or self-care (01) ==
PROVIDERS: Physician Assistant Medical; Emergency Provider Emergency Medicine; PCP Physician Assistant Medical
DX: R42 Dizziness and giddiness (principal); R00.2 Palpitations; G89.4 Chronic pain syndrome; I10 Essential (primary) hypertension; E78.5 Hyperlipidemia, unspecified; D50.9 Iron deficiency anemia, unspecified; F19.10 Other psychoactive substance abuse, uncomplicated; Z79.899 Other long term (current) drug therapy
CPT/HCPCS: 36415; 80048; 80076; 80307; 83690; 83735; 84484; 85025; 93005; 96361; 96374; 96375; 99284; 99285; J1885; J2405

== ENCOUNTER 2024-01-29 15:03 | Outpatient (AMB) | payer OTHER, SELFPAY ==
--- NOTE | 2024-01-29 15:06 | AM.OFFWIN_ITS ---
Intake Vital Signs 01/29/24 15:08 Height 5 ft 7 in Weight 158 lb BMI 24.7 BP 124/86 Blood Pressure Location Lt brachial Position Sitting Pulse 63 Pulse Source Pulse Oximeter Temp 98.1 F Temp Source Oral Pulse Oximetry (%) 96 Oxygen Delivery Method Room Air Intake Visit Reasons: EP LT ear blockage Intake Note: pt c/o LT ear blockage, intermittent pain. Started 2 days ago Patient Tobacco Use Status: Never used Tobacco Allergies No Known Allergies Allergy (Verified 01/29/24 15:07) Do you need a note to return to daycare/school/sports/work: No HPI HPI Comments History of Present Illness Details Patient is a 58-year-old male complaining of left ear blockage. He sta asia that is a little bit painful and he has some reduction in hearing and he believes that waxes build up in there. He has had this happened before and usually once the wax is removed, his symptoms resolved. He denies any fevers PFSH Medical History RLS (restless legs syndrome) GERD (gastroesophageal reflux disease) Asthma Primary insomnia Anxiety and depression CHANI (iron deficiency anemia) Vitamin D deficiency HLD (hyperlipidemia) HTN (hypertension) Sacroiliac joint pain Sacroiliitis Chronic pain syndrome Postlaminectomy syndrome Surgical History S/P lumbar fusion Family History Other Multiple sclerosis Social History Household Members: None Do you presently have visiting nurse or other home services: No Alcohol intake: never Patient Tobacco Use Status: Never used Tobacco Substance Use Type: Marijuana service: No Review of Systems Const All systems reviewed & are unremarkable except as noted in HPI and below Physical Exam Vital Signs: Last Vital Signs Temp 98.1 F 01/29/24 15:08 Pulse 63 01/29/24 15:08 BP 124/86 01/29/24 15:08 Pulse Ox 96 01/29/24 15:08 Oxygen Delivery Method Room Air 01/29/24 15:08 BMI result Body Mass Index 24.7 Const General: cooperative, healthy appearing, comfortable and no acute distress Orientation/consciousness: patient oriented x3 HEENT Head: Yes normal to inspection Ears: mastoids normal, Abnormal EAC present cerumen impaction bilateral and unable to visualize TM (cerumen blockage) bilaterally General nose exam: Normal external nose present Face and sinus: Yes normal facial exam Resp Effort & Inspection: normal respiratory effort and able to speak in complete sentences Neuro General: patient oriented x3 Office Procedures Cerumen Removal From which ear canal was the cerumen removed: bilateral Removal: irrigation Notes: patient tolerated procedure well, no complications and ear canal clear 22944-Cvh Irrigation/Lavage Assessment & Plan Assessment & Plan (1) Bilateral impacted cerumen: Code(s): H61.23 - Impacted cerumen, bilateral Plan: Both ears are clear, patient tolerated procedure well. Recommended he start using Debrox drops once monthly Plan See above Coding Level of Care Code New Pt Level 4 (24083) Diagnoses Bilateral impacted cerumen H61.23 CPT Codes Office Procedure - CPT: 33371-Lfe Irrigation/Lavage ([id number])
[2024-01-29 15:08] VITALS: BP 124/86; PULSE 63; TEMP 36.7; O2SAT 96; BMI 24.7
--- OUTSIDE RECORDS SUMMARY | 2024-01-31 07:44 | XMS_ITS | Continuity of Care Document ---
Author Organization [facility] Address [address] [place] [address], [address] [place] [address]- Care Team Providers Care Civil Engineering Manager Name Role Phone Claude Ho Primary Care Physician ( [phone] Encounter [facility] [place] Date(s): 07/06/23 - 08/05/23 [facility] [address] [place] [address], [address] [place], [place] [address] Allergies, Adverse Reactions, Alerts No Known Allergies Immunizations Given and Recorded Vaccine Date Status Refusal Reason tetanus/diphtheria/pertussis, acel(Tdap) 12/08/19 Given Medications acetaminophen 325 mg oral tablet 650 mg, By Mouth, Every 4 hours, PRN, Temperature Greater than 100.5, Refills 0, Maintenance, Pain , Mild, 04/20/23 7:21:00 EST, Partial fill upon patient request if the prescription is for a schedule II opioid drug. Start Date: 04/20/23 Status: Ordered Advair Diskus 100 mcg-50 mcg inhalation powder 1, inhalation, Inhalation, 2 times a day, Refills 0, Maintenance, 12/08/19 10:52:00 EDT Start Date: 12/08/19 Status: Ordered atorvastatin 80 mg oral tablet 1 tablet = 80 mg, By Mouth, Daily Start Date: 06/16/18 Status: Ordered celecoxib 200 mg oral capsule 1 capsule = 200 mg, By Mouth, 2 times a day, 0 Refills, Maintenance, 01/24/23 14:09:00 EDT, Capsule, Partial fill upon patient request if the prescription is for a schedule II opioid drug. Start Date: 01/24/23 Status: Ordered gabapentin 300 mg oral capsule 300 mg, By Mouth, 3 times a day, Refills 0, Maintenance, 04/20/23 8:20:00 EST, Partial fill upon patient request if the prescription is for a schedule II opioid drug. Start Date: 04/20/23 Status: Ordered hydrOXYzine pamoate 50 mg oral capsule = 50 mg, By Mouth, Every 6 hours, PRN Anxiety, 0 Refills, Maintenance, 04/20/23 7:21:00 EST, Capsule, Partial fill upon patient request if the prescription is for a schedule II opioid drug. Start Date: 04/20/23 Status: Ordered lisinopril 10 mg oral tablet 10 mg, 1, tablet, By Mouth, Daily Start Date: 06/16/18 Status: Ordered Multivitamin 1 tablet, By Mouth, Daily, Maintenance, 06/16/18 19:15:29 EST Start Date: 06/16/18 Status: Ordered omeprazole 40 mg oral enteric coated capsule 1 capsule = 40 mg, By Mouth, Daily, # 30 capsule, 0 Refills, Maintenance, 01/24/23 14:09:00 EDT, ECCapsule, Partial fill upon patient request if the prescription is for a schedule II opioid drug. Start Date: 01/24/23 Status: Ordered ProAir HFA 90 mcg/inh inhalation aerosol with adapter 2, puffs, Inhalation, Every 6 hours, PRN Start Date: 06/16/18 Status: Ordered rOPINIRole 0.25 mg oral tablet TAKE 4 TABLETS BY MOUTH AT BEDTIME Start Date: 01/24/23 Status: Ordered traMADol 50 mg oral tablet = 50 mg, By Mouth, Every 8 hours, PRN Pain , Moderate, 0 Refills, Maintenance, 04/20/23 8:26:00 EST, Tablet, Partial fill upon patient request if the prescription is for a schedule II opioid drug. Start Date: 04/20/23 Status: Ordered traZODone 50 mg oral tablet 50 mg, 1, tablet, By Mouth, Daily at bedtime, # 30 tablet, Refills 0, Maintenance, 01/29/23 15:11:00 EDT, Partial fill upon patient request if the prescription is for a schedule II opioid drug. Start Date: 01/29/23 Status: Ordered Problem List Condition Confirmation Course Effective Dates Status H ealth Status Informant Altered mental status Confirmed Active Asthma Confirmed Active Carpal tunnel syndrome Confirmed Active Chronic pain Confirmed Active HLD (hyperlipidemia) Confirmed Active HTN (hypertension) Confirmed Active Idiopathic neuropathy Confirmed Active Lumbar facet joint pain Confirmed Active Lumbar radiculitis Confirmed Active Rhabdomyolysis Confirmed Active Sacroiliac joint dysfunction of right side Confirmed Active Spinal stenosis Confirmed Active Social History Social History Type Response Smoking Status Never (less than 100 in lifetime) entered on: 12/08/19 Sex Patient Care team information Care Team Personnel Name: Di Irene RN Position: [facility] RN Member Role: Primary Care Nurse Name: Noemi Rivas RN Position: [facility] RN Member Role: Primary Care Nurse Name: Franklin Xavier RN Position: [facility] RN Member Role: Primary Care Nurse Name: Bijal Gracia RN Position: [facility] RN Member Role: Primary Care Nurse Name: Humaira Smith RN Position: [facility] RN Member Role: Primary Care Nurse Name: Cary Shell RN Position: [facility] RN Member Role: Primary Care Nurse Name: Shyann Trujillo Position: [facility] RN Member Role: Primary Care Nurse Name: Juan Manuel Garland RN Position: [facility] RN Member Role: Primary Care Nurse Name: Lindsey Smith RN Position: [facility] Hospital Education Program Manager Member Role: Primary Care Nurse Name: Chelsea Mendez RN Position: [facility] RN Member Role: Primary Care Nurse Name: Shelly Pendleton Position: [facility] Outreach Member Role: Lifetime Consulting Physician Name: Gloria Jane RN Position: [facility] RN Member Role: Primary Care Nurse Name: Claude Ho Position: Reference Physician Member Role: PCP Address: Address: [address] [place] [id number]- Care Team Related Persons Name: MOSES MCGHEE Address: home [address] [address] Name: LAURA MCGHEE Address: [address] [place] [address] Name: HAYLEY MCGHEE Address: [address] [place] [address]
--- OUTSIDE RECORDS SUMMARY | 2024-01-31 07:44 | XMS_ITS | Continuity of Care Document ---
Author Organization [facility] Address [address] [place] [address] genet, [address] [place] [address]- Care Team Providers Care Supervisor Floor Assembly Name Role Phone Claude Ho Primary Care Physician Encounter [facility] [place] Date(s): 03/03/23 - 04/02/23 [facility] [address] [place] [address] Drive, [address] [place], [place] [address] Allergies, Adverse Reactions, Alerts No Known Allergies Immunizations Given and Recorded Vaccine Date Status Refusal Reason tetanus/diphtheria/pertussis, acel(Tdap) 12/08/19 Given Medications Advair Diskus 100 mcg-50 mcg inhalation powder [...] opioid drug. Start Date: 01/24/23 Status: Ordered Gabapentin By Mouth, 0 Refills, Maintenance, 02/02/23 13:37:00 EDT, Partial fill upon patient request if the prescription is for a schedule II opioid drug. Start Date: 02/02/23 Status: Ordered lisinopril 10 mg oral tablet 10 mg, 1, tablet, By Mouth, Daily Start Date: 06/16/18 Status: Ordered Methadone = 70 mg, By Mouth, Daily, 0 Refills, Maintenance, 01/25/23 6:35:00 EDT, Partial fill upon patient request if the prescription is for a schedule II opioid drug. Start Date: 01/25/23 Status: Ordered Multivitamin 1 tablet, By Mouth, [...] AT BEDTIME Start Date: 01/24/23 Status: Ordered traZODone 50 mg oral tablet 50 mg, 1, tablet, By Mouth, Daily at bedtime, # 30 tablet, Refills 0, Maintenance, 01/29/23 15:11:00 EDT, Partial fill upon patient request if the prescription is for a schedule II opioid drug. Start Date: 01/29/23 Status: Ordered Problem List Condition Confirmation Course Effective Dates Status Health St at[facility] Informant Asthma Confirmed Active Carpal tunnel syndrome Confirmed Active Chronic pain Confirmed Active HLD (hyperlipidemia) Confirmed Active HTN (hypertension) Confirmed Active Idiopathic neuropathy Confirmed Active Lumbar facet joint pain Confirmed Active Lumbar radiculitis Confirmed Active Sacroiliac joint dysfunction of right side Confirmed Active Social History Social History Type Response Smoking Status Never (less than 100 in lifetime) entered on: 12/08/19 Sex Patient Care team information Care Team Personnel Name: Sunday Frank RN Position: [facility] RN Member Role: Primary Care Nurse Name: Noemi Rivas RN Position: [facility] RN Member Role: Primary Care Nurse Name: Humaira Smith RN Position: [facility] RN Member Role: Primary Care Nurse Name: Lindsey Smith RN Position: [facility] Hospital Weeder Thinner Member Role: Primary Care Nurse Name: Chelsea Mendez RN Position: [facility] RN Member Role: Primary Care Nurse Name: Shelly Pendleton Position: [facility] Outreach Member Role: Lifetime Consulting Physician Name: Gracie Gilliland RN Position: S RN Member Role: Primary Care Nurse Name: Claude Ho Position: Reference Physician Member Role: PCP Address: Address: [address] [place] [address] [place] [address]- Care Team Related Persons Name: MOSES MCGHEE Address: home [address] [address] Name: LAURA MCGHEE Address: [address] [place] [address] Name: HAYLEY MCGHEE Address: [place] [address]
--- OUTSIDE RECORDS SUMMARY | 2024-01-31 07:44 | XMS_ITS | Continuity of Care Document ---
Author Organization [facility] al Address [address] [place] [address]- Care Team Providers Care Case Aide Name Role Phone Claude Ho Primary Care Physician Encounter [facility] Date(s): 01/24/23 - 01/31/[address] [address]- Discharge Disposition: A-D/C Home Attending Physician: Shelby Heard MD Admitting Physician: Shelby Heard MD Referring Physician: Angel Stallings MD Allergies, Adverse Reactions, Alerts No Known Allergies Immunizations Given and Recorded Vaccine Date Status Refusal Reason tetanus/diphtheria/pertussis, acel(Tdap) 12/08/19 Given Medications 4x4 gauze for wound care RLE 4x4 gauze for wound care RLE, See Instructions, # 30 each, Refills 0, Tot. Refills 0, Maintenance, daily change, 01/31/23 10:54:00 EDT, Supply, 174, cm, 01/31/23 4:24:00 EDT, Height, 65.7, kg, 01/24/23 21:30:00 EDT, Dry Weight Start Date: 01/31/23 Status: Ordered Advair Diskus 100 mcg-50 mcg inhalation powder 1, inhalation, Inhalation, 2 times a day, Refills 0, Maintenance, 12/08/19 10:52:00 EDT Start Date: 12/08/19 Status: Ordered atorvastatin 80 mg oral tablet 1 tablet = 80 mg, By Mouth, Daily Start Date: 06/16/18 Status: Ordered Augmentin 875 mg-125 mg oral tablet 1 tablet, By Mouth, Every 12 hours, for 7 days, # 14 tablet, 0 Refills, Acute 02/07/23 10:41:00 EDT, 01/31/23 10:41:00 EDT, Tablet, [id number], Partial fill upon patient request if the prescription is for a schedule II opioid drug., 174, cm... Start Date: 01/31/23 Stop Date: 02/07/23 Status: Ordered celecoxib 200 mg oral capsule 1 capsule = 200 mg, By Mouth, 2 times a day, 0 Refills, Maintenance, 01/24/23 14:09:00 EDT, Capsule, Partial fill upon patient request if the prescription is for a schedule II opioid drug. Start Date: 01/24/23 Status: Ordered gabapentin 400 mg oral capsule 800 mg, Capsule, By Mouth, 01/31/23 9:00:00 EDT Start Date: 01/31/23 Stop Date: 01/31/23 Status: Completed kerlex wrap for RLE wound care kerlex wrap for RLE wound care, See Instructions, # 14 each, Refills 0, Tot. Refills 0, Maintenance, daily change, 01/31/23 10:54:00 EDT, Supply, 174, cm, 01/31/23 4:24:00 EDT, Height, 65.7, kg, 01/24/23 21:30:00 EDT, Dry Weight Start Date: 01/31/23 Status: Ordered lisinopril 10 mg oral tablet 10 mg, 1, tablet, By Mouth, Daily Start Date: 06/16/18 Status: Ordered lisinopril 5 mg oral tablet 10 mg, Tablet, By Mouth, Hold for: if SPB less 135, 01/31/23 9:00:00 EDT Start Date: 01/31/23 Stop Date: 01/31/23 Status: Completed Methadone = 70 mg, By Mouth, Daily, 0 Refills, Maintenance, 01/25/23 6:35:00 EDT, Partial fill upon patient request if the prescription is for a schedule II opioid drug. Start Date: 01/25/23 Status: Ordered Methadone Liquid 90 mg, Solution, By Mouth, 01/31/23 9:00:00 EDT Start Date: 01/31/23 Stop Date: 01/31/23 Status: Completed Multivitamin 1 tablet, By Mouth, Daily, Maintenance, [...] AT BEDTIME Start Date: 01/24/23 Status: Ordered saccharomyces boulardii lyo 250 mg oral capsule = 250 mg, By Mouth, 2 times a day, for 10 days, # 20 capsule, 0 Refills, Acute 02/10/23 10:38:00 EDT, 01/31/23 10:38:00 EDT, Capsule, [id number], Partial fill upon patient request if the prescription is for a schedule II opioid drug., 174,... Start Date: 01/31/23 Stop Date: 02/10/23 Status: Ordered traZODone 50 mg oral tablet 50 mg, 1, tablet, By Mouth, Daily at bedtime, # 30 tablet, Refills 0, Maintenance, 01/29/23 15:11:00 EDT, Partial fill upon patient request if the prescription is for a schedule II opioid drug. Start Date: 01/29/23 Status: Ordered venlafaxine 37.5 mg oral capsule, extended release TAKE 1 CAPSULE BY MOUTH ONCE DAILY Start Date: 01/24/23 Status: Ordered Problem List Condition Confirmation Course Effective Dates Status Health St [facility] Informant Asthma Confirmed Active Carpal tunnel syndrome Confirmed Active Chronic pain Confirmed Active HLD (hyperlipidemia) Confirmed Active HTN (hypertension) Confirmed Active Idiopathic neuropathy Confirmed Active Lumbar facet joint pain Confirmed Active Lumbar radiculitis Confirmed Active Sacroiliac joint dysfunction of right side Confirmed Active Results Orders for Microbiology Reports Name Date Blood Culture 01/24/23 Blood Culture #2 01/24/23 Microbiology Reports TEST:Blood Culture, Second Order STATUS:Auth (Verified) BODY SITE: SOURCE:Blood COLLECTED DATE/TIME:01/24/23 12:22 PM Blood Culture, Second Order SPECIMEN DESCRIPTION : BLOOD RAC SPECIAL REQUESTS : NONE CULTURE : NO GROWTH 5 DAYS. REPORT STATUS : FINAL 01/29/2023 TEST:Blood Culture STATUS:Auth (Verified) BODY SITE: SOURCE:Blood COLLECTED DATE/TIME:01/24/23 12:04 PM Blood Culture SPECIMEN DESCRIPTION : BLOOD LAC SPECIAL REQUESTS : NONE CULTURE : NO GROWTH 5 DAYS. REPORT STATUS : FINAL 01/29/2023 Radiology Reports * Exam Date Time Procedure Performing Provider Status 01/28/23 5:[address] Ext Lower W/O Contrast Right Christine Carter; Auth (Verified) Notes: (CT Ext Lower W/O Contrast Right) Reason For Exam: R Leg abscess, S/p I+D;Other: RESULT: CT Ext Lower W/O Contrast Right CT Ext Lower W/O Contrast Right Reason: Other:; R Leg abscess, S p I+D; Clinical Question(s): Knee; lo TECHNIQUE: Helical CT of the right knee without contrast formatted in 3 planes. Weight-based protocol using automatic tube modulation was used to optimize exposure parameters. CTDIvol Body: 6.53 mGy, DLP Body: 212 mGy*cm. COMPARISONS: Right knee radiographs dated 01/24/2023. FINDINGS: Bones and joints: No fracture or dislocation is present. No erosions, productive changes or abnormal calcifications are noted. Soft Tissues: There is subcutaneous edema in the right knee which is greatest anteriorly in the distal thigh and at the level of the knee joint. Inferior to the joint line, the edema appears greatestanteriorly where there are also multiple foci of subcutaneous gas in the anteromedial subcutaneous tissues. Areas of heterogeneously increased density are seen adnexal with the foci of subcutaneous gas. Some of this density is noted to extend through skin defects medially and anteriorly, suggestingpacking material. Within the lower leg, there is also mild subcutaneous edema posteriorly. Included musculature appears unremarkable for the technique. No evidence of edema along the deep intermuscular fascial planes. IMPRESSION: Subcutaneous edema in the right knee greatest along the anteromedial aspect with there are areas ofsubcutaneous gas and hyperdensity admixed into the areas of gas extending to the skin surface, suggestive of packing material. Assessment for discrete abscess is limited due to the lack of intravenous contrast. No CT evidence of osteomyelitis. WSN: [id number] Ordering Physician: Sarah Wilson Dictated By: Kelsea Nava MD Dictated Date/Time: 01/28/23 7:45 pm Reviewed By: Kelsea Nava MD Signed By: Kelsea Nava MD Signed Date/Time: 01/28/23 7:45 pm Transcribed By: LETTY Transcribed Date/Time: 01/28/23 7:34 pm * Exam Date Time Procedure Performing Provider Status 01/27/23 8:00 AM Chest 2 Views Frontal and Lat Carroll Urszula rodríguez; Auth (Verified) Notes: (Chest 2 Views Frontal and Lat) Reason For Exam: Fever RESULT: Chest 2 Views Frontal and Lat Chest 2 Views Frontal and Lat Reason: Fever; Clinical Question(s): Pneumonia COMPARISON: None. FINDINGS: LINES AND TUBES: None. LUNGS AND PLEURA: Clear lungs. Normal pulmonary vascularity. No pleural effusion. No pneumothorax. HEART, MEDIASTINUM AND ALESSANDRA: Heart is normal in size. Normal mediastinal and hilar contour. BONES AND SOFT TISSUES: No acute abnormality. Incompletely visualized hardware in the cervical spine. Multiple chronic left rib fractures. IMPRESSION: No acute abnormality. WSN: [id number] Ordering Physician: Sarah Wilson Dictated By: Devin Ohara MD Dictated Date/Time: 01/27/23 8:20 am Reviewed By: Devin Ohara MD Signed By: Devin Ohara MD Signed Date/Time: 01/27/23 8:20 am Transcribed By: LETTY Transcribed Date/Time: 01/27/23 8:18 am * Exam Date Time Procedure Performing Provider Status 01/26/23 3:22 PM US Doppler Ext Lower Venous Right Jessica Vega; Auth (Verified) Notes: (US Doppler Ext Lower Venous Right) Reason For Exam: Immobility RESULT: US Doppler Ext Lower Venous Right US Doppler Ext Lower Venous Right Reason: Immobility; Clinical Question(s): Thrombus COMPARISON: None IMAGING TECHNIQUE: Ultrasound of the veins from the groin through the calf was performed using grayscale, color, and spectral Doppler ultrasound assessing for complete compressibility and normal flowcharacteristics. FINDINGS: Common femoral vein: Patent. No thrombosis. Femoral vein: Patent. No thrombosis. Popliteal vein: Patent. No thrombosis. Gastrocnemius veins: Not visualized. Peroneal veins: The images of the peroneal veins appear to have been erroneously marked as left sided. The visualized portions are patent without evidence of thrombosis. Posterior tibial veins: The visualized images of the posterior tibial veins appear to have been erroneously marked as left sided. The visualized portions are patent without evidence of thrombosis. Contralateral common femoral vein: Patent. No thrombosis. OTHER FINDINGS: There is diffuse calf edema. IMPRESSION: 1. No evidence of deep venous thrombosis within the veins successfully evaluated. 2. There does appear to be some problems in the exam's annotations. If there is clinical concern, consider repeat examination. An actionable message (Yellow) has been communicated via the [employer] system on 01/26/2023 5:15 PM, Message ID [id number]. WSN: [id number] Ordering Physician: Sarah Wilson Dictated By: Devin Ohara MD Dictated Date/Time: 01/26/23 5:15 pm Reviewed By: Devin Ohara MD Signed By: Devin Ohara MD Signed Date/Time: 01/26/23 5:15 pm Transcribed By: LETTY Transcribed Date/Time: 01/26/23 5:05 pm * Exam Date Time Procedure Performing Provider Status 01/24/23 2:23 PM Knee 3 Views Right Christian , Deann ; Auth (Verified) Notes: (Knee 3 Views Right) Reason For Exam: Infection RESULT: Knee 3 Views Right Knee 3 Views Right Reason: Infection; Clinical Question(s): Osteomyelitis COMPARISON: None. FINDINGS: 3 views. No fractures or suspicious osseous lesions. Mild medial joint compartment and patellofemoral degenerative changes. No sizable joint effusion. IMPRESSION: Mild degenerative changes. WSN: [id number] Ordering Physician: Darlin Mojica Dictated By: Trey Monsivais MD Dictated Date/Time: 01/24/23 3:08 pm Reviewed By: Trey Monsivais MD Signed By: Trey Monsivais MD Signed Date/Time: 01/24/23 3:08 pm Transcribed By: LETTY Transcribed Date/Time: 01/24/23 3:07 pm Vital Signs Most recent to oldest [Reference Range]: 1 2 3 4 Height 174 cm (01/31/23 4:24 AM) 174 cm (01/30/23 7:48 PM) 174 cm (01/30/23 4:35 AM) Weight 65.7 kg (01/24/23 9:23 PM) 65.7 kg (01/24/23 3:54 PM) 66.5 kg (01/24/23 3:13 PM) Oxygen Saturation [94-100 %] 96 % (01/31/23 8:00 AM) 95 % (01/31/23 4:24 AM) 93 % *L* (01/30/23 7:48 PM) Pulse Rate [55-90 bpm] 72 bpm (01/31/23 8:00 AM) 74 bpm (01/31/23 4:24 AM) 89 bpm (01/30/23 7:48 PM) Body Mass Index [18.5-24.99 kg/m2] 21.7 kg/m2 (01/24/23 9:23 PM) 21.7 kg/m2 (01/24/23 3:54 PM) 21.96 kg/m2 (01/24/23 3:13 PM) Blood Pressure [90-138/55-84 mm Hg] 150/89mm Hg *H* (01/31/23 8:09 AM) 150/89mm Hg *H* (01/31/23 8:00 AM) 112/75mm Hg (01/31/23 4:24 AM) Respiratory Rate [16-30 br/min] 19 br/min (01/31/23 9:09 AM) 20 br/min (01/31/23 9:09 AM) 19 br/min (01/31/23 8:09 AM) 19 br/min (01/31/23 8:09 AM) Temperature [96.8-100.4 DegF] 97.9 DegF (01/31/23 8:00 AM) 98.1 DegF (01/31/23 4:24 AM) 97.5 DegF (01/30/23 7:48 PM) Liters per Minute 0 L/min (01/30/23 4:27 PM) 0 L/min (01/30/23 7:47 AM) 0 L/min (01/29/23 3:24 PM) Mode of Delivery (Oxygen) Room air (01/31/23 8:00 AM) Room air (01/31/23 4:24 AM) Room air (01/30/23 7:48 PM) Blood pressure sites Arm, right (01/31/23 8:00 AM) Arm, right (01/31/23 4:24 AM) Arm, right (01/30/23 7:48 PM) Temperature Route Oral (01/31/23 8:00 AM) Oral (01/31/23 4:24 AM) Oral (01/30/23 7:48 PM) Dry Weight 65.7 kg (01/24/23 3:54 PM) 66.5 kg (01/24/23 3:13 PM) 66.5 kg (01/24/23 3:06 PM) Weight Obtained Via Standing scale (01/24/23 9:23 PM) Social History Social History Type Response Smoking Status Never (less than 100 in lifetime) entered on: 12/08/19 Sex History and physical note * Juan Abebe DO: MODIFY Aparna Phillips: PERFORM Event Display: History and Physical Hospital Authored Date: [id number] Patient: ??GAURAV MCGHEE ? Age:??57 Years?Sex:??Male?:??1965?? Chief Complaint/Reason for Consultation leg infection sent from urgent care History of Present Illness This is a 57-year-old male with history of hypertension, hyperlipidemia, asthma, peripheral neuropathy, restless leg syndrome, chronic back pain who presents with leg swelling and discomfort.?? A couple days ago he was doing some work on his hands and knees and thinks the nail dug into??the skin??on his caraballo under his knee.?? Over the last several days this area has become red and swollen and painful.?? There is a bit of serous oozing from the puncture area but no evidence of purulence. He sterilized a sewing needle and was digging it into his leg and using hydrogen peroxide.?? No change in sensation beyond his usual neuropathy.?? No fevers or chills.?? He is up to date on tdap. He went to urgent care today. There were concerns that it is now streaking up his leg linearly and he was referred to the ER. ?? In the ER his temp is 99, heart rate 148 started to improve with IV fluids, normotensive.?? White count 17.7 with left shift.?? Normal lactate.?? X-ray knee is pending.?? He was given IV fluids, Zosyn and vancomycin admitted with cellulitis. Review of Systems POSTIVE ROS noted in *bold* Constitutional: no weight loss, fever, chills or fatigue HEENT: no cough, congestion, rhinorrhea. No vision change or blurred vision Skin: RLE red swelling pain. Cardiovascular: no chest pain or palpitations Respiratory: no shortness of breath, cough or sputum Gastrointestinal: no abdominal pain, nausea, vomiting, diarrhea, blood in vomit or stool Genitourinary: no dysuria, frequency or incontinence Neurologic: no headache, dizziness, syncope, unilateral weakness, ataxia or numbness Musculoskeletal: RLE limited ROM d/t swelling and pain Hematologic: no bleeding or bruising Psychiatric: no depression or anxiety Endocrine: no reports of sweating, heat or cold intolerance Full ROS completed and is negative or as otherwise mentioned above. Objective Measurements?? Height: 174 cm (01/24/23) Weight: 66.5 kg (01/24/23) Dry Weight: 66.5 kg (01/24/23) ? Vital Signs?? Temperature: 99 DegF (01/24/23 12:37:00) Temperature Route: Oral (01/24/23 12:37:00) Pulse Rate:??100 bpm??High (01/24/23 12:43:00) Respiratory Rate: 16 br/min (01/24/23 12:43:00) Systolic Blood Pressure: 122 mm Hg (01/24/23 11:45:00) Diastolic Blood Pressure: 84 mm Hg (01/24/23 11:45:00) Mean Arterial Pressure: 97 mm Hg (01/24/23 11:45:00) Pulse Pressure: 38 mm Hg (01/24/23 11:45:00) Oxygen Saturation: 94 % (01/24/23 12:43:00) Mode of Delivery (Oxygen): Room air (01/24/23 12:43:00) ? Physical Exam ?General NAD, pleasant, speaking in full sentences?HEENT??Moist mucous membranes ?Lung??CTA bilaterally, no wheezes, rhonchi, or rales?Heart??regular rate and rhythm, no murmurs, gallops, or rubs?Abdomen soft, non-tender, non-distended, bowel sounds present?Extremities?puncture??appearing wound inferior to the knee with serous??appearing drainage surrounding erythema, warmth with linear streak up medial aspect of leg??full ROM of knee does not??seem to involve the joint. see??photo ?Neurologic??Alert & oriented x 3, moving all extremities, no gross focal deficits?Skin??see above ? Psychiatry appropriate mood and affect?? Images right leg Assessment/Plan Assessment:??This is a 57-year-old male with history of hypertension, hyperlipidemia, asthma, peripheral neuropathy, restless leg syndrome chronic back pain who presents with leg swelling and discomfort. ?? Cellulitis of right lower extremity (L03.115):??Sepsis (A41.9):?? increased RLE swelling/warmth, after puncture wound, was digging at it himself with a needle at home as well. UTD on tdap. Sepsis by SIRS with WBC, tachycardia. Lactate wnl. Clinically does not appear as abscess. Streaking up leg. No prior hx MRSA or recent abx use cefazolin elevate extremity follow up x-ray follow blood cultures ?? HLD (hyperlipidemia) (E78.5):??continue statin Asthma (J45.909):??no exacerbation, albuterol as needed, Breo for home Advair HTN (hypertension) (I10):??continue lisinopril Idiopathic neuropathy (G60.9):??continue gabapentin GERD (gastroesophageal reflux disease) (K21.9):??continue PPI Restless leg syndrome (G25.81):??continue ropinirole Chronic pain (G89.29):??on gabapentin and fills rx for tramadol periodically ?? VTE Prophylaxis:??Lovenox ?VTE Prophylaxis Assessment:??VTE Prophylaxis Ordered Code Status:??full ?Order Code Status:??Code Status Ordered Ongoing Medical Necessity:??le cellulitis Discharge Planning:??pending improvement ?? Mr. Mcghee is a 57-year-old gentleman with PMH of asthma, HTN, chronic pain who presents with right leg swelling and redness.?? He is not entirely sure what happened.?? He believes that he had anabrasion or perhaps a puncture wound while he was working on his knees.?? He has multiple concerns for me this evening and wanted to discuss the results of his x-rays which were communicated to him.?? He later stated that he is also on methadone.?? His dosing was confirmed with [facility]. ?? Exam Awake/alert, no focal deficits Regular rate and rhythm Lungs clear bilaterally Erythema of the right lower leg extending just above the knee with some streaking up to the mid thigh along the medial aspect ?? Assessment/plan Sepsis due to right lower extremity cellulitis Chronic pain Asthma Hypertension -Continue Ancef, elevate the leg, follow blood cultures -70 mg of methadone ordered to start this morning at 8 AM which is when he normally takes it ?? I attest that the advanced practitioner performed all components of this visit including historyof present illness, hospital course, examination, and medical decision making. The note has been verified for accuracy and re- documented as needed. I evaluated the patient at bedside and performed a history and physical. I discussed the management with Aparna DIAZ and agree with the plan of care. Juan Abebe, DO?? Patient evaluated on 01/24/2023 Histories Allergies Allergies ?(Active and Proposed Allergies Only) NKA? (Severity: Unknown severity, Onset: Unknown) ? Past Medical History/Problem List Active Problems??(12) Asthma Carpal tunnel syndrome Chronic pain HLD (hyperlipidemia) HTN (hypertension) Idiopathic neuropathy Lumbar facet joint pain Lumbar radiculitis Sacroiliac joint dysfunction of right side Suicidal ideation Withdrawal from benzodiazepine Withdrawal from opioids ? Past Surgical History Esophagogastroduodenoscopy: 06/18/18 Colonoscopy: 06/18/18 ? Social History Alcohol Details:??Use: Never. Substance Abuse Details:??Use: Never. Tobacco Details:??Use: Never (less than 100 in lifetime). ? Family History Daughter: Multiple sclerosis ? Medications Home Medications Albuterol (ProAir HFA 90 mcg/inh inhalation aerosol with adapter)?2?puff(s)?Inhalation?Every 6 hours?as needed?Cough Atorvastatin (atorvastatin 80 mg oral tablet)?1?tab(s)?80?Milligram?By Mouth?Daily Celecoxib (celecoxib 200 mg oral capsule)?1?capsule?200?Milligram?By Mouth?2 times a day Fluticasone-Salmeterol (Advair Diskus 100 mcg-50 mcg inhalation powder)?1?inhalation?Inhalation?2 times a day Gabapentin (gabapentin 600 mg oral tablet)?TAKE 1 TABLET BY MOUTH 4 TIMES DAILY Lisinopril (lisinopril 10 mg oral tablet)?10?Milligram?1?tablet?By Mouth?Daily Multivitamin?1?tab(s)?By Mouth?Daily Omeprazole (omeprazole 40 mg oral enteric coated capsule)?1?capsule?40?Milligram?By Mouth?Daily Ropinirole (rOPINIRole 0.25 mg oral tablet)?TAKE 4 TABLETS BY MOUTH AT BEDTIME Tramadol (traMADol 50 mg oral tablet)?TAKE 1 TABLET BY MOUTH THREE TIMES DAILY Venlafaxine (venlafaxine 37.5 mg oral capsule, extended release)?TAKE 1 CAPSULE BY MOUTH ONCE DAILY ? Results Recent Labs BLOOD COUNT & DIFF WBC 17.7 k/mm3 (High)?? 01/24/2023 12:22 RBC 4.84 m/mm3 ()?? 01/24/2023 12:22 Hgb 14.7 Gm/dL ()?? 01/24/2023 12:22 Hct 43.6 % ()?? 01/24/2023 12:22 MCV 90.1 femtoliters ()?? 01/24/2023 12:22 MCH 30.4 pg ()?? 01/24/2023 12:22 MCHC 33.7 g/dL ()?? 01/24/2023 12:22 Platelet Count 198 k/mm3 ()?? 01/24/2023 12:22 RDW-SD 41.6 femtoliters ()?? 01/24/2023 12:22 MPV 10.7 femtoliters ()?? 01/24/2023 12:22 Nucleated RBC (Automated) 0.0 #/100 WBC'S ()?? 01/24/2023 12:22 Abs. NRBC 0.0 k/mm3 ()?? 01/24/2023 12:22 Abs. Neut 14.9 k/mm3 (High)?? 01/24/2023 12:22 Abs. Lymph 1.1 k/mm3 ()?? 01/24/2023 12:22 Abs. Wilkinson 1.8 k/mm3 (High)?? 01/24/2023 12:22 Abs. Eo 0.0 k/mm3 ()?? 01/24/2023 12:22 Abs. Baso 0.0 k/mm3 ()?? 01/24/2023 12:22 Neut % 84.0 % (High)?? 01/24/2023 12:22 Lymph % 6.0 % (Low)?? 01/24/2023 12:22 Wilkinson % 10.0 % ()?? 01/24/2023 12:22 Eos % 0.0 % ()?? 01/24/2023 12:22 Baso % 0.0 % ()?? 01/24/2023 12:22 Platelet Estimate ADEQUATE ()?? 01/24/2023 12:22 ?? CHEM GENERAL Sodium 136 mmol/L ()?? 01/24/2023 12:04 Potassium 3.8 mmol/L ()?? 01/24/2023 12:04 Chloride 97 mmol/L (Low)?? 01/24/2023 12:04 Bicarbonate Level 29 mmol/L ()?? 01/24/2023 12:04 Anion Gap 10 ()?? 01/24/2023 12:04 Glucose Level 104 mg/dL (High)?? 01/24/2023 12:04 BUN 19 mg/dL ()?? 01/24/2023 12:04 Creatinine-Blood 0.9 mg/dL ()?? 01/24/2023 12:04 Estimated GFR Creatinine 98 ML/MIN/1.73 M2 ()?? 01/24/2023 12:04 Calcium 9.3 mg/dL ()?? 01/24/2023 12:04 Lactate 0.8 mmol/L ()?? 01/24/2023 12:22 ?? HEME OTHER Hold Blue Top SPECIMEN DISCARDED AFTER 4 HOURS. ()?? 01/24/2023 12:04 ?? MISC. CHEMISTRY Hold Green Top SPECIMEN DISCARDED AFTER 1 WEEK ()?? 01/24/2023 12:04 Hold Gel Top SPECIMEN DISCARDED AFTER 1 WEEK ()?? 01/24/2023 12:04 ?? URINE OTHER Est Creatinine Clearance 83.13 mL/min ()?? 01/24/2023 12:39 ? EKG study * Event Display: ECG 12-Lead Authored Date: Please click on pdf link to open report * Event Display: ECG 12-Lead Authored Date: Ventricular Rate: 85 BPM Atrial Rate: 85 BPM P-R Interval: 158 ms QRS Duration: 76 ms Q-T Interval: 370 ms QTC Calculation(Bazett): 440 ms P Shelton: 49 degrees R Shelton: 34 degrees T Shelton: 49 degrees Normal sinus rhythm Possible Left atrial enlargement Left ventricular hypertrophy Abnormal ECG When compared with ECG of 24-JAN-2023 12:20, No significant change was found Confirmed by ANGEL ROMANO MD ([id number]) on 01/31/2023 9:16:18 PM [place]: ANGEL ROMANO MD * Event Display: ECG 12-Lead Authored Date: Please click on pdf link to open report * Event Display: ECG 12-Lead Authored Date: Ventricular Rate: 106 BPM Atrial Rate: 106 BPM P-R Interval: 146 ms QRS Duration: 72 ms Q-T Interval: 306 ms QTC Calculation(Bazett): 406 ms P Shelton: 69 degrees R Shelton: 45 degrees T Shelton: 49 degrees Sinus tachycardia Otherwise normal ECG When compared with ECG of 20-FEB-2021 14:59, Vent. rate has increased BY 35 BPM Confirmed by ANGEL ROMANO MD ([id number]) on 01/25/2023 10:44:05 PM [place]: ANGEL ROMANO MD [facility] Progress note * Lorna Lopez RN: VERIFY, PERFORM, SIGN Event Display: Progress Note Hospital Authored Date: Patient: GAURAV MCGHEE Age: 57 years Sex: Male : 1965 Associated Diagnoses: None Author: Lorna Lopez RN Findings Problem Related to Alteration in Comfort : Alteration in Comfort/new 01/31/2023 9:00 EDT Alteration in Comfort Related to Disease process, Surgery, Other: Chronic pain Goals & Outcomes: Comfort Pt will report acceptable level of comfort & pain control, Pt will state importance of adhering to pain strategy regime, Pt will demonstrate necessary skills to manage pain, Non-verbal indicators will indicate comfort/pain control Interventions Implemented: Comfort Assess pain using appropriate pain scale/tools Goals/Interventions, Comfort Yes Comfort, Problem Start 01/25/2023 18:01 Reviewed plan with, Comfort Patient Patient Progression, Comfort Pt progressing according to plan Comfort, Problem Ongoing Yes . Alteration in Integumentary : Alteration in Integumentary/new 01/31/2023 9:00 EDT Alteration in Integumentary Related to Cellulitis Goals & Outcomes, Integumentary Nutritional intake is adequate for metabolic needs, Pt will maintain adequate fluid & nutritional balance, Pt will maintain intact skin integrity, Wound will progress towards healing Interventions, Integumentary Cleanse all wounds with Normal Saline, Keep skin clean & dry Goals/Interventions, Integumentary Yes Integumentary, Problem Start 01/25/2023 17:59 Reviewed plan with, Integumentary Patient Patient Progression, Integumentary Pt progressing according to plan . Nursing Data Cardiac Data. : Cardiac Data. 01/31/2023 9:04 EDT Cardiovascular Symptoms Edema present Dorsalis Pedis Pulse, Right Normal Ankle, right 1+ trace Cardiovascular WNL except . Integumentary Data. : Integumentary Data. 01/31/2023 9:04 EDT Skin Integrity Not intact Wound Location I Leg, right Wound I, Drainage Amount Minimum Wound I, Drainage Color Purulent Wound I, Surrounding Skin Edema, Erythematous, Warm Integumentary WNL except . Vital Signs : VITAL SIGNS SECTION 01/31/2023 8:00 EDT Temperature 97.9 DegF Temperature Route Oral Pulse Rate 72 bpm Respiratory Rate 18 br/min Systolic Blood Pressure 150 mm Hg H Diastolic Blood Pressure 89 mm Hg H Blood pressure sites Arm, right Oxygen Saturation 96 % Mode of Delivery (Oxygen) Room air . Evaluation (Pt is A&Ox4, ind. PT has chronic back pain that he rated 8/10 this morning. Pain tothe RLE was rated a 3. This improved after I gave him his scheduled pain medication this morning. +1 edema noted to RLE. +pp. +CSM. Pt is planning for discharge, Safety measured reinforced, call [facility] reach. ) * Andrea FREEMAN, [place]: PERFORM, SIGN, VERIFY Event Display: Progress Note Hospital Authored Date: [id number] Patient: GAURAV MCGHEE Age: 57 years Sex: Male : 1965 Associated Diagnoses: None Author: Andrea FREEMAN, [place] Findings Problem Related to Alteration in Comfort : Alteration in Comfort/new 01/31/2023 3:00 EDT Alteration in Comfort Related to Disease process, Surgery, Other: Chronic pain Goals & Outcomes: Comfort Pt will report acceptable level of comfort & pain control, Pt will state importance of adhering to pain strategy regime, Pt will demonstrate necessary skills to manage pain, Non-verbal indicators will indicate comfort/pain control Interventions Implemented: Comfort Assess pain using appropriate pain scale/tools, Assess aggravating factors & prevent them accordingly, Assess alleviating factors & promote them accordingly BH Goals/Interventions, Comfort Yes Comfort, Problem Start 01/25/2023 18:01 Reviewed plan with, Comfort Patient Patient Progression, Comfort Pt progressing according to plan Comfort, Problem Ongoing Yes . Alteration in Integumentary : Alteration in Integumentary/new 01/31/2023 3:00 EDT Alteration in Integumentary Related to Cellulitis Goals & Outcomes, Integumentary Nutritional intake is adequate for metabolic needs, Pt will maintain adequate fluid & nutritional balance, Pt will maintain intact skin integrity, Wound will progress towards healing Interventions, Integumentary Consult Wound Care as needed for further interventions, Interdisciplinary consults as appropriate, Keep linen clean, dry and wrinkle free, Keep skin clean & dry, Minimize friction, shear and moisture, Monitor reddened areas for continued or increasing reddness, Record extent of impaired skin integrity BH Goals/Interventions, Integumentary Yes Integumentary, Problem Start 01/25/2023 17:59 Reviewed plan with, Integumentary Patient Patient Progression, Integumentary Pt progressing according to plan . Nursing Data Vital Signs : VITAL SIGNS SECTION 01/30/2023 19:48 EDT Temperature 97.5 DegF Temperature Route Oral Pulse Rate 89 bpm Respiratory Rate 18 br/min Systolic Blood Pressure 167 mm Hg H Diastolic Blood Pressure 98 mm Hg H Blood pressure sites Arm, right Mean Arterial Pressure 121 mm Hg Pulse Pressure 69 mm Hg Oxygen Saturation 93 % L Mode of Delivery (Oxygen) Room air . Narrative/Incidental Patient A&Ox4; dressing intact to right knee, small amount of drainage to kerlex; reinforced with netting sleeve as patient concerned about dressing falling off. Reminded patient not to touch dressing. Redness much decreased from last week. +1 pitting edema RLE. IV abx given without issue noted. Bed in low, locked position & pt. ambulating to bathroom with steady gait. Call booth in reach.. * Danae Li RN: SIGN, VERIFY, PERFORM Event Display: Progress Note Hospital Authored Date: Patient: GAURAV MCGHEE Age: 57 years Sex: Male : 1965 Associated Diagnoses: None Author: Danae Li RN Findings Narrative/Incidental Care assumed at 1500 from Sarah Turner at 1500. Pt A&Ox4. Ambulates independently. RLE dsg removed by Dr. Shook this afternoon. new orders for 4x4 dsd secured with kerlex wrap/tape daily and after shower. Dsd applied after pt showered this afternoon, Small amount of serosanguenous drainage noted. 4x4 secured with kerlex and tape. Tolerated well.call light in hand. Bed in lowest position/locked.. Consult note * Angeline Lynch MD: PERFORM, MODIFY, MODIFY Event Display: Consultation Note Authored Date: Patient: ??GAURAV MCGHEE ? Age:??57 Years?Sex:??Male?:??1965?? Chief Complaint/Reason for Consult Right leg cellulitis, possible abscess History of Present Illness Gaurav is a 57 year old man who presented to the ER on 01/24 for right leg swelling and redness. He was admitted and started on IV antibiotics. Some of the cellulitis has faded over the past few days,but he continues to have distinct erythema and swelling below the knee. Surgery consult was requested to evaluate for possible need for I&D. ?? Gaurav says he continues to have significant pain in the right leg. He feels immense pressure, especially when he tries to stand. Physical Exam Vitals & Measurements T:??98.8?F?? HR:??84??(Peripheral)?? RR:??20?? BP:??151/86?? SpO2:??96%?? HT:??174??cm?? WT:??65.7??kg?? BMI:??21.7?? General:??calm, comfortable, no distress Cardiac:??regular rate and rhythm Lungs:??normal respiratory effort Extremities:??right leg below the knee has circumferential blanching erythema and??skin thickening??extending to about mid caraballo. Just below the knee there is a 2x2cm area of fluctuance, at the centerof which is a 1x1cm area of ulceration. There is significant edema all the way into the foot.?? Neuro:??awake and alert, oriented x3 Assessment/Plan Cellulitis of right lower extremity (L03.115):??Evidence of abscess on exam. I&D was performed (see procedure note below) with drainage of a large amount of purulent fluid . The abscess cavity tracked about [id number] on the anterior surface of the lower leg. It seemed to only involve the superficial tissue but I would recommend getting a CT of the RLE to ensure no abscess is present in then deeper tissue. The cavity was packed, the packing should be changed daily. Outer dressing changed at least daily, or more often as needed when dirty or saturated. ? PROCEDURE NOTE: After obtaining verbal consent the right lower anterior leg was prepped with betadine. Lidocaine was injected into the skin overlying the area of fluctuance. A 1cm incision was made in the skin with immediate drainage of a large amount of purulent fluid. The incision was enlargedand a small ellipse of skin excised to allow for better drainage. The leg was milked to express allthe purulent fluid. The cavity was probed and it tracked just below the skin, medially and laterally, forming a cavity about [id number]. Counter incisions were made medially and laterally at the outer extents of the cavity. The cavity was irrigated with saline and packed with 1/2 inch packing strip. Dry dressing was placed. The patient tolerated the procedure without issue. Problem List/Past Medical History Ongoing Asthma Carpal tunnel syndrome Chronic pain HLD (hyperlipidemia) HTN (hypertension) Idiopathic neuropathy Lumbar facet joint pain Lumbar radiculitis Sacroiliac joint dysfunction of right side Suicidal ideation Withdrawal from benzodiazepine Withdrawal from opioids Procedure/Surgical History Esophagogastroduodenoscopy: 06/18/18 Colonoscopy: 06/18/18 Cervical spine fusion Home Medications Albuterol: 2 puffs, Inhalation, Every 6 hours, PRN (Cough) Atorvastatin: 80 mg = 1 tablet, By Mouth, Daily Celecoxib: 200 mg = 1 capsule, By Mouth, 2 times a day Fluticasone-Salmeterol: 1 inhalation, Inhalation, 2 times a day Lisinopril: 10 mg = 1 tablet, By Mouth, Daily Methadone: 70 mg, By Mouth, Daily Multivitamin: 1 tablet, By Mouth, Daily Omeprazole: 40 mg = 1 capsule, By Mouth, Daily Ropinirole: TAKE 4 TABLETS BY MOUTH AT BEDTIME Venlafaxine: TAKE 1 CAPSULE BY MOUTH ONCE DAILY Allergies NKA Social History Alcohol Use: Never. Sexual Sexually involved in last 6 months: No. Gender identity: Identifies as male. Self described orientation: Straight or heterosexual. Substance Abuse Use: Never. Tobacco Use: Never (less than 100 in lifetime). Family History Daughter: Multiple sclerosis Lab Results Labs Last 24 Hours No qualifying data available. * Gabino SHERWOOD, Walter Lovelace: PERFORM, SIGN, VERIFY Event Display: Consultation Note Authored Date: Patient: GAURAV MCGHEE Age: 57 years Sex: Male : 1965 Associated Diagnoses: None Author: Walter Lloyd MD INFECTIOUS DISEASES CONSULTATION NOTE Date:__ Requesting Attending/Provider: _Hospitalist Reason for Consult: _right leg cellulitis Source of Information: CIS, patient History of Present Illness (45101/87975/15567: HPI ???4): The patient is a _57 year-old _ with a past medical history of _opioid withdrawal presents with right lower extremity redness and swelling. He has no fever or chills at this time but on admission WBC of 17,7 He has said he was kneeling on 01/22 and developed redness after kneeling on rough surface. He is responding to Kefzol. Past Medical and Surgical History: _ GERD Withdrawal from benzo Withdrawal from opioids Recent Antimicrobials: none -_ Medications: Reviewed Antimicrobial Allergies: No known antimicrobial allergies. Family History: Noncontributory to this current admission. Social History: _. Denies history of tobacco, heavy alcohol, and illicit drug use. Review of Systems (28392: 2-9 ROS; 52462/75889: 10 ROS): 10-point review of systems fully reviewed and negative aside from what is listed above in the HPI. Medication List MED LIST (Selected) Inpatient Medications Ordered Albuterol 90 mcg Inhaler: 180 mcg, 2 puffs, Inhaler, Inhalation, Every 4 hours, PRN for Wheezing/Shortness of Breath, Routine, 01/24/23 14:40:00 EDT Artificial Tears 1.4%: 2 drops, Ophth Solution, Eyes, Both, Every 4 hours, PRN for Other, Dryness.,Routine, 01/24/23 14:42:00 EDT Breo Ellipta 200 mcg-25 mcg Inhaler: 1 puffs, Inhaler, Inhalation, Daily, Routine, 01/25/23 9:00:00EDT Enoxaparin Inj: 40 mg, Injection, Subcutaneous Injection, Daily, Routine, 01/25/23 9:00:00 EDT Lidocaine 5% Patch: 2 each, Patch, Topically, Apply to Back, Daily, Apply to affected area. Remove after 12 hours., ANNA, 01/25/23 19:08:00 EDT Methadone Liquid: 90 mg, Solution, By Mouth, Daily, Routine, 01/28/23 9:00:00 EDT Methadone Tablet: 30 mg, Tablet, By Mouth, Once, Routine, 01/27/23 15:00:00 EDT, Stop date 01/27/2315:00:00 EDT NaCL 0.9% Flush: 3 mL, Injection, IV Push, Every 8 hours, Routine, 01/24/23 15:00:00 EDT Remove Lidocaine Patch: 2 each, Patch, Topically, Apply to Back, Daily at bedtime, Remove all Licodaine 5% patches 12 hours after application., Routine, 01/25/23 21:00:00 EDT Salinex [place]: 1 sprays, Nasal [place], Nares, Both, 4 times a day, PRN for Other, dryness, Routine, 01/24/23 14:42:00 EDT Toradol Inj: 15 mg, Injection, IV Push Slowly, Every 6 hours for 5 days, PRN for Pain , Mild, Routine, 01/24/23 14:42:00 EDT, Stop date 01/29/23 14:41:00 EDT Tylenol 325 mg oral tablet: 650 mg, Tablet, By Mouth, Every 6 hours, PRN for Pain , Moderate, Routine, 01/24/23 14:42:00 EDT atorvastatin 80 mg oral tablet: 80 mg, Tablet, By Mouth, Daily at bedtime, Routine, 01/24/23 21:00:00 EDT calcium carbonate 500 mg (200 mg elemental calcium) oral tablet, chewable: 500 mg, Chew Tablet, Chew, Every 4 hours, PRN for Dyspepsia, Routine, 01/24/23 14:42:00 EDT ceFAZolin Inj: 2 Gm, Injection, IV Push Slowly, Every 8 hours, Indicated for: Cellulitis Non-purulent, Routine, 01/24/23 22:00:00 EDT gabapentin 400 mg oral capsule: 800 mg, Capsule, By Mouth, 4 times a day, Routine, 01/25/23 21:00:00 EDT ibuprofen 400 mg oral tablet: 400 mg, Tablet, By Mouth, 3 times a day, PRN for Temperature, Routine, 01/26/23 16:46:00 EDT lisinopril 5 mg oral tablet: 10 mg, Tablet, By Mouth, Daily, Hold for: if SPB less 135, Routine, 01/25/23 9:00:00 EDT nalOXONE Inj: 0.2 mg, Injection, IV Push, Every 5 minutes, PRN for Other, Respiratory Rate less than 8 or for somnolence/excessive sedation. Repeat until Respiratory Rate is greater than 15 and patient is more alert., Routine, 01/25/23 7:07:00 EDT pantoprazole 40 mg oral delayed release tablet: 40 mg, EC Tablet, By Mouth, Daily, Indicated for: GERD, Routine, 01/25/23 9:00:00 EDT rOPINIRole 1 mg oral tablet: 1 mg, Tablet, By Mouth, Daily at bedtime, Routine, 01/24/23 21:00:00 EDT saccharomyces boulardii lyo 250 mg oral capsule: 250 mg, Capsule, By Mouth, 2 times a day, Routine,01/26/23 9:00:00 EDT traMADol 50 mg oral tablet: 50 mg, Tablet, By Mouth, 3 times a day, PRN for Pain , Severe, Routine,01/24/23 14:41:00 EDT venlafaxine 37.5 mg oral capsule, extended release: 37.5 mg, XR Capsule, By Mouth, Daily, Routine, 01/25/23 9:00:00 EDT Canceled Breo Ellipta 100 mcg-25 mcg Inhaler: 1 puffs, Inhaler, Inhalation, Daily, Routine, 01/24/23 14:40:00 EDT lisinopril 5 mg oral tablet: 10 mg, Tablet, By Mouth, Daily, Routine, 01/25/23 9:00:00 EDT nalOXONE Inj: 0.2 mg, Injection, IV Push, Every 5 minutes, PRN for Other, Respiratory Rate less than 8 or for somnolence/excessive sedation. Repeat until Respiratory Rate is greater than 15 and patient is more alert., Routine, 01/27/23 11:11:00 EDT Completed Bolus NaCL 0.9% 1,000 mL: 1,000 mL, Infusion, IV Infusion, Once, Infuse Bolus over 20 minutes, STAT, 01/24/23 13:08:00 EDT Lasix 20 mg oral tablet: 20 mg, Tablet, By Mouth, Once, Routine, 01/27/23 8:00:00 EDT, Stop date 01/27/23 8:00:00 EDT Methadone Tablet: 40 mg, Tablet, By Mouth, Once, Routine, 01/26/23 17:00:00 EDT, Stop date 01/26/2317:00:00 EDT Vancomycin IVPB: 1,000 mg, IVPB, Injection, Once, Infuse over 60 to 90 minutes, Indicated for: Cellulitis Purulent, Routine, 01/24/23 14:00:00 EDT, Stop date 01/24/23 14:00:00 EDT Zosyn Extended IVPB: 3.375 Gm, IVPB, Injection, Once, Infuse over 4 hours., Indicated for: Cellulitis Purulent, Routine, 01/24/23 14:00:00 EDT, Stop date 01/24/23 14:00:00 EDT Discontinued Methadone Liquid: 70 mg, Solution, By Mouth, Every 24 hours, confirmed with [facility], Routine, 01/25/23 8:00:00 EDT Methadone Liquid: 90 mg, Solution, By Mouth, Daily, Routine, 01/27/23 10:43:00 EDT gabapentin 300 mg oral capsule: 600 mg, Capsule, By Mouth, 4 times a day, Routine, 01/24/23 17:00:00 EDT Documented Medications Documented Advair Diskus 100 mcg-50 mcg inhalation powder: 1, inhalation, Inhalation, 2 times a day, Refills 0, Maintenance, 12/08/19 10:52:00 EDT Methadone: = 70 mg, By Mouth, Daily, 0 Refills, Maintenance, 01/25/23 6:35:00 EDT, Partial fill upon patient request if the prescription is for a schedule II opioid drug. Multivitamin: 1 tablet, By Mouth, Daily, Maintenance, 06/16/18 19:15:29 EST ProAir HFA 90 mcg/inh inhalation aerosol with adapter: 2, puffs, Inhalation, Every 6 hours, PRN atorvastatin 80 mg oral tablet: 1 tablet = 80 mg, By Mouth, Daily celecoxib 200 mg oral capsule: 1 capsule = 200 mg, By Mouth, 2 times a day, 0 Refills, Maintenance,01/24/23 14:09:00 EDT, Capsule, Partial fill upon patient request if the prescription is for a schedule II opioid drug. lisinopril 10 mg oral tablet: 10 mg, 1, tablet, By Mouth, Daily omeprazole 40 mg oral enteric coated capsule: 1 capsule = 40 mg, By Mouth, Daily, # 30 capsule, 0 Refills, Maintenance, 01/24/23 14:09:00 EDT, EC Capsule, Partial fill upon patient request if the prescription is for a schedule II opioid drug. rOPINIRole 0.25 mg oral tablet: TAKE 4 TABLETS BY MOUTH AT BEDTIME venlafaxine 37.5 mg oral capsule, extended release: TAKE 1 CAPSULE BY MOUTH ONCE DAILY Discontinued Ropinirole: By Mouth, 0 Refills, Maintenance, 01/24/23 11:48:00 EDT, Partial fill upon patient request if the prescription is for a schedule II opioid drug. Venlafaxine: By Mouth, 0 Refills, Maintenance, 01/24/23 11:48:00 EDT, Partial fill upon patient request if the prescription is for a schedule II opioid drug. gabapentin 400 mg oral capsule: 400 mg, 1, capsule, By Mouth, 3 times a day, May take an extra doseas needed gabapentin 600 mg oral tablet: TAKE 1 TABLET BY MOUTH 4 TIMES DAILY gabapentin 600 mg oral tablet: TAKE 1 TABLET BY MOUTH 4 TIMES DAILY rOPINIRole 0.25 mg oral tablet: TAKE 4 TABLETS BY MOUTH AT BEDTIME traMADol 50 mg oral tablet: TAKE 1 TABLET BY MOUTH THREE TIMES DAILY traMADol 50 mg oral tablet: TAKE 1 TABLET BY MOUTH THREE TIMES DAILY venlafaxine 37.5 mg oral capsule, extended release: 1 capsule = 37.5 mg, By Mouth, Daily, # 30 capsule, 0 Refills, Maintenance, 01/24/23 14:07:00 EDT, ER Capsule, Partial fill upon patient request ifthe prescription is for a schedule II opioid drug. Review of Systems Review of Systems Constitutional: no chills, no fever. Respiratory: denies nonproductive cough. Cardiovascular: no peripheral edema. Gastrointestinal: no abdominal pain. Physical Examination (53264: 2-7 organ systems or comprehensive single system exam; 59033/86560: 8 organ systems or comprehensive single system exam) .VitalsTemperature 100.5 (05:18) Systolic Blood Pressure 165 (09:09) Diastolic Blood Pressure 86 (09:09) Pulse 91 (05:18) SpO2 96 (05:18) Respiratory Rate 18 (12:32) GENERAL: In no acute distress HEENT: Anicteric, no subconjunctival petechiae, moist oral mucosa without lesions or thrush NECK: Neck supple, without cervical lymphadenopathy CARDIOVASCULAR: Regular rate and rhythm. Not able to appreciate any murmurs, rubs, or gallops. No peripheral edema. RESPIRATORY: Lungs clear to auscultation GASTROINTESTINAL: Non-distended, normoactive bowel sounds, non-tender GENITOURINARY: No CVAT MUSCULOSKELETAL: Without joint effusions, no tenderness over spine, redness right lower extremity with boil area resolving SKIN: No diffuse rash present, no stigmata of infective endocarditis PSYCHIATRIC: No signs of hallucinations or delusions NEUROLOGICAL: A&Ox3, grossly intact LINES: Results Review General results Microbiology: Impression and Plan Impression: _ Sepsis with tachycardia to 91 and WBC of 17.7 He has been feeling improved and redness subsiding so agree not likely MRSA,possible strep or MSSA. NKDA Recommendations: Continue Kefzol and probably change to Keflex within next day for a week probably. Check HIV and Hepatitis C. -_ Thank you for the consultation. Infectious Diseases will continue to follow the patient with you. Note * Hilary Stevenson RN: PERFORM Event Display: Discharge/Transfer Note Hospital Authored Date: [id number] Nursing Discharge Note Entered On: 01/31/2023 12:20 EDT Performed On: 01/31/2023 12:18 EDT by Hilary Stevenson RN Nursing Discharge Note 2 Discharge Time : 01/31/2023 12:18 EDT Discharge Level of Care at Discharge : Home/Half-Way/Foster Care Patient Left Unit Via : Wheelchair Patient Accompanied Off Unit with : Responsible adult DC Instructions Provided & Signed by Pt : Yes Patient Understands D/C Instructions : Yes Patient Instructions Discharge Signed : Yes Did Pt have Specialty Bed or Wound Vac : No Hilary Stevenson RN - 01/31/2023 12:18 EDT * Shelby Heard MD: PERFORM Event Display: Discharge/Transfer Note Hospital Authored Date: [id number] Patient: ??GAURAV MCGHEE ? Age:??57 Years?Sex:??Male?:??1965?? Patient Information Discharge Location: Med Surg Primary Care Physician: Claude Ho Admit Date/Time: 01/24/23 14:09 Discharge Disposition Discharge Disposition: Home: No Services Discharge Diagnosis Cellulitis of right lower extremity (L03.115) Abscess right lower extremity Status post incision and drainage HLD (hyperlipidemia) (E78.5) Asthma (J45.909) HTN (hypertension) (I10) Idiopathic neuropathy (G60.9) Chronic pain (G89.29) Abscess of right leg (L02.415) ?? GERD (gastroesophageal reflux disease) (K21.9) Restless leg syndrome (G25.81) Sepsis (A41.9) ?? _ Discharge Medications Albuterol (ProAir HFA 90 mcg/inh inhalation aerosol with adapter)?2?puff(s)?Inhalation?Every 6 hours?as needed?Cough Amoxicillin-Clavulanate (Augmentin 875 mg-125 mg oral tablet)?1?tab(s)?By Mouth?Every 12 hours?for 7?Days Atorvastatin (atorvastatin 80 mg oral tablet)?1?tab(s)?80?Milligram?By Mouth?Daily Celecoxib (celecoxib 200 mg oral capsule)?1?capsule?200?Milligram?By Mouth?2 times a day Fluticasone-Salmeterol (Advair Diskus 100 mcg-50 mcg inhalation powder)?1?inhalation?Inhalation?2 times a day Lisinopril (lisinopril 10 mg oral tablet)?10?Milligram?1?tablet?By Mouth?Daily Methadone?70?Milligram?By Mouth?Daily Multivitamin?1?tab(s)?By Mouth?Daily Omeprazole (omeprazole 40 mg oral enteric coated capsule)?1?capsule?40?Milligram?By Mouth?Daily Ropinirole (rOPINIRole 0.25 mg oral tablet)?TAKE 4 TABLETS BY MOUTH AT BEDTIME Saccharomyces Boulardii Lyo (saccharomyces boulardii lyo 250 mg oral capsule)?250?Milligram?By Mouth?2 times a day?for 10?Days Trazodone (traZODone 50 mg oral tablet)?50?Milligram?1?tablet?By Mouth?Daily at bedtime Venlafaxine (venlafaxine 37.5 mg oral capsule, extended release)?TAKE 1 CAPSULE BY MOUTH ONCE DAILY ? Medications Started Augmentin Sacrum Misys Medications Discontinued none Doses Changed None??none Allergies Allergies ?(Active and Proposed Allergies Only) NKA? (Severity: Unknown severity, Onset: Unknown) ? PCP Follow-Up/Heads-Up Follow-up on right lower extremity??cellulitis and wound Future Appointments 2022 1:30 PM EDT ?? With: Angel SHERWOOD, Gianluca Smart Where: [address] [place] [address]- Status: Pending Monday 10:30 AM EDT ?? With: Cecilio Astorga DO Where: [facility] [address] [place] [address]- Status: Pending Hospital Course ??57 years old gentleman with history of hypertension, peripheral neuropathy??and chronic pain. Patient is hospitalized for??right leg cellulitis??right tibia abscess, status post I&D, ?? Sepsis (A41.9):?Resolved Abscess of right leg (L02.415):??:??Status post incision and drainage, no wound culture available ?? Cellulitis of right lower extremity (L03.115):??Right side??cellulitis??triggered by trauma.??No prior history of MRSA infection.?Patient responded to IV cefazolin, cellulitis receding. Ultrasound obtained which ruled out a DVT.?Patient is status post??I&D??by general surgery,??patient still erythema??swelling of right calf area.??Patient received 2 dose of oral Lasix 20 mg p.o. to minimize leg edema. Improvement on IV cefazolin 2 g every 8 hours Appreciate infectious disease recommendation Surgery follow-up appreciated, weeks removed from the wound Continue application of gauze and Kerlix wrap Augmentin for 7 more days after discharge ? Restless leg syndrome (G25.81):??Continue??ropinirole ?? Asthma (J45.909):??Well-controlled, asymptomatic ?? HTN (hypertension) (I10):??Resume lisinopril Chronic pain (G89.29):??: ?? Idiopathic neuropathy (G60.9):??Continue gabapentin??and methadone.?Due to severe back pain, patient will receive increased dose of methadone 90 mg daily??inpatient, I gave him a letter??regardingthis dose change in the hospital and to resume his usual dose outpatient ?? GERD (gastroesophageal reflux disease) (K21.9):??Continue PPI ?Asymptomatic and feeling well , tolerating diet , no CP/SOB. VSS and on RA?Is independent, wants to go home while driving the car, I left it up to him to decide if heis safely able to drive the car,??I do not anticipate any??limitations??per se ?? Objective Assessment and Plan ? Vital Signs?? Temperature: 97.9 DegF (01/31/23 08:00:00) Temperature Route: Oral (01/31/23 08:00:00) Pulse Rate: 72 bpm (01/31/23 08:00:00) Respiratory Rate: 20 br/min (01/31/23 09:09:00) Respiratory Rate: 19 br/min (01/31/23 09:09:00) Systolic Blood Pressure:??150 mm Hg??High (01/31/23 08:09:00) Diastolic Blood Pressure:??89 mm Hg??High (01/31/23 08:09:00) Blood pressure sites: Arm, right (01/31/23 08:00:00) Mean Arterial Pressure: 87 mm Hg (01/31/23 04:24:00) Pulse Pressure: 37 mm Hg (01/31/23 04:24:00) Oxygen Saturation: 96 % (01/31/23 08:00:00) Liters per Minute: 0 L/min (01/30/23 16:27:00) Mode of Delivery (Oxygen): Room air (01/31/23 08:00:00) Early Warning Score: 2 (01/31/23 09:59:27) ? . Physical Exam NAD HEENT: no icterus, mucosa moist Resp: CTABL , No rales/ wheezes/ ronchi CVS: RRR, No JVD, No Gallop or murmur ABD: soft, NT, ND, NABS Extm : Right lower extremity edema and erythema improving wick packing has been removed no purulent discharge, perfusion intact FORMING OPERATOR: Alert Ox 3, no focal deficits?? mood : calm cooperative?? Skin:Warm to touch Pending Results No Pending Results Follow-Up Appointments Added Follow Up ?Time Frame ?Comments Claude DIAZ?1 to 2 weeks Patient Instructions wound care Right Leg Apply gauze 4x4 and kerlex wrap. Change daily. May shower and take dressing off to shower and applynew dressing after shower Home Health Face to Face ^[facility] Results Discharge Labs BLOOD COUNT & DIFF WBC 10.9 k/mm3 ()?? 01/31/2023 08:35 RBC 4.67 m/mm3 (Low)?? 01/31/2023 08:35 Hgb 13.9 Gm/dL ()?? 01/31/2023 08:35 Hct 42.5 % ()?? 01/31/2023 08:35 MCV 91.0 femtoliters ()?? 01/31/2023 08:35 MCH 29.8 pg ()?? 01/31/2023 08:35 MCHC 32.7 g/dL (Low)?? 01/31/2023 08:35 Platelet Count 322 k/mm3 ()?? 01/31/2023 08:35 RDW-SD 42.4 femtoliters ()?? 01/31/2023 08:35 MPV 9.4 femtoliters ()?? 01/31/2023 08:35 Nucleated RBC (Automated) 0.0 #/100 WBC'S ()?? 01/31/2023 08:35 Abs. NRBC 0.0 k/mm3 ()?? 01/31/2023 08:35 Abs. Neut 5.4 k/mm3 ()?? 01/29/2023 08:31 Abs. Lymph 1.3 k/mm3 ()?? 01/29/2023 08:31 Abs. Wilkinson 1.3 k/mm3 ()?? 01/29/2023 08:31 Abs. Eo 0.1 k/mm3 ()?? 01/29/2023 08:31 Abs. Baso 0.0 k/mm3 ()?? 01/29/2023 08:31 Neut % 64.9 % ()?? 01/29/2023 08:31 Lymph % 15.9 % ()?? 01/29/2023 08:31 Wilkinson % 15.6 % (High)?? 01/29/2023 08:31 Eos % 1.6 % ()?? 01/29/2023 08:31 Baso % 0.5 % ()?? 01/29/2023 08:31 Platelet Estimate ADEQUATE ()?? 01/24/2023 12:22 Imm Gran 1.5 % ()?? 01/29/2023 08:31 Abs. Imm Gran 0.1 k/mm3 ()?? 01/29/2023 08:31 ? CHEM GENERAL Sodium 137 mmol/L ()?? 01/29/2023 08:31 Potassium 4.3 mmol/L ()?? 01/29/2023 08:31 Chloride 96 mmol/L (Low)?? 01/29/2023 08:31 Bicarbonate Level 36 mmol/L (High)?? 01/29/2023 08:31 Anion Gap 5 ()?? 01/29/2023 08:31 Glucose Level 119 mg/dL (High)?? 01/29/2023 08:31 BUN 10 mg/dL ()?? 01/29/2023 08:31 Creatinine-Blood 0.7 mg/dL ()?? 01/29/2023 08:31 Estimated GFR Creatinine 106 ML/MIN/1.73 M2 ()?? 01/29/2023 08:31 Calcium 8.5 mg/dL (Low)?? 01/29/2023 08:31 Lactate 0.8 mmol/L ()?? 01/24/2023 12:22 ? HEME OTHER Hold Blue Top SPECIMEN DISCARDED AFTER 4 HOURS. ()?? 01/24/2023 12:04 ? MISC. CHEMISTRY Hold Green Top SPECIMEN DISCARDED AFTER 1 WEEK ()?? 01/31/2023 08:35 Hold Gel Top SPECIMEN DISCARDED AFTER 1 WEEK ()?? 01/24/2023 12:04 ?? URINE OTHER Est Creatinine Clearance 105.59 mL/min ()?? 01/25/2023 07:15 ? VIROLOGY COVID-19 by RT-PCR NEGATIVE ()?? 01/24/2023 14:45 ? 38_ minutes spent on discharge * Shelby Heard MD: PERFORM, SIGN, VERIFY, SIGN, MODIFY Event Display: Discharge/Transfer Note Hospital Authored Date: [id number] Patient: GAURAV MCGHEE Age: 57 years Sex: Male : 1965 Associated Diagnoses: None Author: Shelby Heard MD 01/31/2023 To Whom it May Concern MR Mcghee received methadone 90 mg on 01/31/2023 at 8:09 a.m. He received 70 mg on 01/25, then 110 mg on 01/26, then 100 mg on 01/27 and 90 mg from 01/28-01/31. He was admitted 01/24-01/31/23. CORDELL Sincerely, Shelby Heard MD * Graham FREEMAN, Hilary: PERFORM Event Display: Patient Education/Instruction Authored Date: Inpatient Adult Discharge Instructions [address] [address] Name: GAURAV MCGHEE : 1965 Visit: 01/24/2023 14:09:00 Current Date: 01/31/2023 11:08 Account: [id number] Inpatient Adult Discharge Instructions We would like to thank you for allowing us to assist you with your healthcare needs. The following includes patient education materials and information regarding your injury/illness. Our entire staffstrives to provide an excellent experience for our patients and their families. PLEASE ENSURE YOU FOLLOW-UP PER THE INSTRUCTIONS BELOW! ?? YOUR OPINION IS IMPORTANT TO US! Please complete the survey you may receive by mail or email. Your feedback will be used to make improvements to the healthcare experiences of our patients and their families. Surveys are administered by [employer] ?? If further treatment with your primary care physician or another doctor is recommended, it is important for you to keep the appointment. Call your primary care physician or return to the Emergency Department immediately if your condition worsens, fails to improve, or new symptoms develop. If you need to find a doctor, you can call [facility] for a referral at [phone] or toll free at [phone] or log in to [email or web address].. ?? You can view and manage your care through the patient portal or by using a health care manjinder of your choosing. [employer] is a website that allows you to securely view your medical information including your hospital discharge summary, office visit summaries, medications and follow-up visits. You can also request appointments, renew medications, and request access to your medical information using a health care manjinder of your choosing, or just ask a question. You can enroll at [email or web address] or register during your next office visit. You have been discharged from [facility], Patient Care Unit: Med Surg. If you have any questions regarding these instructions after you leave, please call us and we will be happy to assist you. [facility] Your Care Team Attending Physician Orquidea SHERWOOD, Shelby Consulting Providers Rosalba Shook DO; Cris SHERWOOD, Jay Lloyd MD, Walter Lovelace Discharging Providers Shelby Heard MD Reason for Admission Right leg abscess Your Diagnosis HLD (hyperlipidemia) Asthma HTN (hypertension) Idiopathic neuropathy Chronic pain Cellulitis of right lower extremity Sepsis Restless leg syndrome GERD (gastroesophageal reflux disease) Abscess of right leg Tests Performed Below is a partial list of the tests performed during your hospitalization. You may have had other tests and procedures not included in this list. Please discuss all test results with your provider. Basic Metabolic Panel BUN CBC CBC w/ Differential COVID-19 (Novel Coronavirus), Rapid PCR Creatinine Electrolytes Glucose Level HOLD BLUE TUBE HOLD GEL TUBE HOLD GREEN TUBE Lactate Level CT Ext Lower W/O Contrast Right CXR W/ Frontal and Lat US Doppler Ext Lower Venous Right XR Knee 3 Views Right Primary Care Provider Claude Ho Advance Directive Health Care Proxy on File Yes - Health Care Proxy Discharge Vitals Temperature: 97.9 DegF Height: 174 cm Pulse Rate: 72 bpm Weight: 65.7 kg Respiratory Rate: 20 br/min Body Mass Index: 21.7 kg/m2 Respiratory Rate: 19 br/min Body surface area: 1.78 Systolic Blood Pressure:??150 mm Hg??High ?? Diastolic Blood Pressure:??89 mm Hg??High ?? Oxygen Saturation: 96 % ?? Studies Pending All tests and labs ordered during this hospital stay have been completed unless listed below. Please discuss all pending results with your provider listed above in these instructions. ?? No incomplete studies found What to do next Instructions From Your Doctor wound care Right Leg Apply gauze 4x4 and kerlex wrap. Change daily. May shower and take dressing off to shower and applynew dressing after shower Discharge Orders Scheduled Follow-Up Appointments 2022 1:30 PM EDT ?? With: Angel SHERWOOD, Gianluca Smart Where: [facility] [address] [place] [address] Drive [address] [place] [address]- Status: Pending Monday 10:30 AM EDT ?? With: Cecilio Astorga DO Where: [facility] [address] [place] [address]- Status: Pending You Need to Schedule the Following Appointments Follow Up with??Claude DIAZ When:??Within 1 to 2 weeks Where: [address] [place] [address] JUAN CARLOS [place] [address]- Discharge Medications GAURAV MCGHEE :1965 Visit Date:01/24/2023 Medications: Please continue your medications until treatment is completed or stopped by your provider. Medications not listed below should be discontinued. Discuss any questions related to medications with your provider. What How Much When Instructions Next Dose New Amoxicillin-Clavulanate (Augmentin 875 mg-125 mg oraltablet) 1 tab(s) Oral Every 12 hours Duration: 7 Days Pickup at [facility] Today 2PM New Miscellaneous Rx (4x4 gauze for wound care RLE) See instructions daily change ?? Pickup at [place] [address] New Miscellaneous Rx (kerlex wrap for RLE wound care) See instructions daily change ?? Pickup at [place] [address] New Saccharomyces Boulardii Lyo (saccharomyces boulardii lyo 250 mg oral capsule) 250 Milligram Oral Twice a day Duration: 10 Days Pickup at [place] [id number] Tonight 9PM Unchanged Albuterol (ProAir HFA 90 mcg/ inh inhalation aerosol with adapter) 2 puff(s) Inhalation Every 6 hours as needed for Cough as needed as directed Unchanged Atorvastatin (atorvastatin 80 mg oral tablet) 1 tab(s) Oral Daily Tomorrow AM Unchanged Celecoxib (celecoxib 200 mg oral capsule) 1 capsule Oral Twice a day Tonight 9PM Unchanged Fluticasone-Salmeterol (Advair Diskus 100 mcg-50 mcg inhalation powder) 1 inhalation Inhalation Twice a day Tonight 9PM Unchanged Lisinopril (lisinopril 10 mg oral tablet) 1 tab(s) Oral Daily Tomorrow AM Unchanged Methadone 70 Milligram Oral Daily Tomorrow AM Unchanged Multivitamin 1 tab(s) Oral Daily Tomorrow AM Unchanged Omeprazole (omeprazole 40 mg oral enteric coated capsule) 1 capsule Oral Daily Tomorrow AM Unchanged Ropinirole (rOPINIRole 0.25 mg oral tablet) TAKE 4 TABLETS BY MOUTH AT BEDTIME ?? Tonight 9PM Unchanged Trazodone (traZODone 50 mg oral tablet) 1 tab(s) Oral Daily at Bedtime Tonight 9PM Unchanged Venlafaxine (venlafaxine 37.5 mg oral capsule, extended release) TAKE 1 CAPSULE BY MOUTH ONCE DAILY ?? Tomorrow AM Pharmacy Information [id number]: [address] [place] [phone] ?? What When Comments Stop Taking Gabapentin (gabapentin 600 mg oral tablet) TAKE 1 TABLET BY MOUTH 4 TIMES DAILY ?? Stop Taking Tramadol (traMADol 50 mg oral tablet) TAKE 1 TABLET BY MOUTH THREE TIMES DAILY ?? Test Results Below is a partial list of the most recent Laboratory test results done prior to this discharge. You may have had other tests and procedures not included in this list. Please discuss all test resultswith your provider. Est Creatinine Clearance - 105.59 mL/min (01/25/2023) Basic Metabolic Panel (01/29/2023) ???Sodium - 137 mmol/L???Potassium - 4.3 mmol/L???Chloride - 96 mmol/L???Bicarbonate Level - 36 mmol/L???Anion Gap - 5???Glucose Level - 119 mg/dL???BUN - 10 mg/dL???Creatinine-Blood - 0.7 mg/dL???Estimated GFR Creatinine - 106 ML/MIN/1.73 M2???Calcium - 8.5 mg/dL BUN (01/25/2023) ???BUN - 14 mg/dL CBC (01/31/2023) ???WBC - 10.9 k/mm3???RBC - 4.67 m/mm3???Hgb - 13.9 Gm/dL???Hct - 42.5 %???MCV - 91.0 femtoliters???MCH - 29.8 pg???MCHC - 32.7 g/dL???Platelet Count - 322 k/mm3???RDW-SD - 42.4 femtoliters???MPV - 9.4 femtoliters???Nucleated RBC (Automated) - 0.0 #/100 WBC'S???Abs. NRBC - 0.0 k/mm3 CBC w/ Differential (01/29/2023) ???WBC - 8.3 k/mm3???RBC - 4.41 m/mm3???Hgb - 12.9 Gm/dL???Hct - 39.9 %???MCV - 90.5 femtoliters???MCH - 29.3 pg???MCHC - 32.3 g/dL???Platelet Count - 219 k/mm3???RDW-SD - 42.1 femtoliters???MPV - 9.5 femtoliters???Nucleated RBC (Automated) - 0.0 #/100 WBC'S???Abs. NRBC - 0.0 k/mm3???Abs. Neut - 5.4 k/mm3???Abs. Lymph - 1.3 k/mm3???Abs. Wilkinson - 1.3 k/mm3???Abs. Eo - 0.1 k/mm3???Abs. Baso - 0.0 k/mm3???Neut % - 64.9 %???Lymph % - 15.9 %???Wilkinson % - 15.6 %???Eos % - 1.6 %???Baso % - 0.5 %???Imm Gran - 1.5 %???Abs. Imm Gran - 0.1 k/mm3 COVID-19 (Novel Coronavirus), Rapid PCR (01/24/2023) ???COVID-19 by RT-PCR - NEGATIVE Creatinine (01/25/2023) ???Creatinine-Blood - 0.7 mg/dL???Estimated GFR Creatinine - 106 ML/MIN/1.73 M2 Electrolytes (01/25/2023) ???Sodium - 140 mmol/L???Potassium - 4.2 mmol/L???Chloride - 104 mmol/L???Bicarbonate Level - 27 mmol/L???Anion Gap - 9 Glucose Level (01/25/2023) ???Glucose Level - 94 mg/dL HOLD BLUE TUBE (01/24/2023) ???Hold Blue Top - SPECIMEN DISCARDED AFTER 4 HOURS. HOLD GEL TUBE (01/24/2023) ???Hold Gel Top - SPECIMEN DISCARDED AFTER 1 WEEK HOLD GREEN TUBE (01/31/2023) ???Hold Green Top - SPECIMEN DISCARDED AFTER 1 WEEK Lactate Level (01/24/2023) ???Lactate - 0.8 mmol/L Allergies (NKA means No Known Allergies) NKA Problems Active Problems??(12) Asthma?? Carpal tunnel syndrome?? Chronic pain?? HLD (hyperlipidemia)?? HTN (hypertension)?? Idiopathic neuropathy?? Lumbar facet joint pain?? Lumbar radiculitis?? Sacroiliac joint dysfunction of right side?? Suicidal ideation?? Withdrawal from benzodiazepine?? Withdrawal from opioids?? Education Materials Below is the list of Educational Leaflet Providered with your Discharge Instructions. Valuables and Belongings I fully understand and agree that [facility] accepts no responsibility for all my personal property including clothing, toilet articles, radios, jewelry, dentures, hearing aids, rings, money, or any other property that is in my possession or is brought to me after admission. I understand certain valuables may be placed in a hospital safe for a short period of time. I understand that the hospital is not liable for loss or damage due to accident, fire, or other natural occurrence while said property is in the safe. I accept full responsibility for any personal property that I keep with me, and will not hold the hospital responsible in case of loss or disappearance. I acknowledge that i have been encouraged to send valuables and belongings home. ?? Review of Valuable and Belonging List: With patient, With witness Date for Pt to Sign Valuables/Belongings: 01/28/23 02:51:00 ?? Other Discharge Information ?? Wound Assessment?? Wound Assessment?? Wound Location I: Leg, right Wound Type I: Other: Puncture wound Wound I, Length: 1 cm Wound I, Width: 1.5 cm Wound I, Present on Admission: Yes ? Pulmonary Rehab Status?? Pulmonary Rehab Discharge Status?? Respiratory Rate: 20 br/min Respiratory Rate: 19 br/min ? Common Emergency Awareness Tips IS IT A STROKE? Act FAST and Check for these signs: FACE Does the face look uneven? ARM Does one arm drift down? SPEECH Does their speech sound strange? TIME Call at any sign of stroke ?? Heart Attack Signs Chest discomfort: Most heart attacks involve discomfort in the center of the chest and lasts more than a few minutes, or goes away and comes back. It can feel like uncomfortable pressure, squeezing, fullness or pain. Discomfort in upper body: Symptoms can include pain or discomfort in one or both arms, back, neck, jaw or stomach. Shortness of breath: With or without discomfort. Other signs: Breaking out in a cold sweat, nausea, or lightheaded. Remember, MINUTES DO MATTER. If you experience any of these heart attack warning signs, call to get immediate medical attention! ?? Smoking can increase your chances of developing chronic health problems and can cause harmful effects to other family members in your house. If you smoke, you are strongly encouraged to quit. Please call [facility] Link at [phone] or [phone] ([phone]) or log in to [email or web address] for referrals to smoking cessation programs. ?? 183 Suicide & Crisis Lifeline is available 02/01 if you or someone you know needs to find a reason to keep living. By calling 065 you'll be connected to a skilled, trained counselor at a crisis center in your area. INPATIENT DISCHARGE INSTRUCTIONS SIGNATURE PAGE TAZGAURAV Location:[facility] Registration Date and Time:01/24/2023 14:09 EDT Primary Care Physician: Claude Ho, Attending Physician: Orquidea SHERWOOD [facility], I GAURAV MCGHEE, have received the above patient education materials/instructions and have verbalized understanding. If ambulance or transport services are being used I further acknowledge beinggiven a choice of service. ?? If you need to contact me, please call me at this number: . Patient/Tower Switch Operator Name: Patient/Tower Switch Operator Signature: Relationship to Patient: Witness Name/Signature: Date: * Shelby Heard MD: PERFORM, SIGN, VERIFY Event Display: Patient Education Handout Authored Date: [id number] Patient Care team information Care Team Personnel Name: Sunday Frank RN Position: [facility] RN Member Role: Primary Care Nurse Name: Noemi Rivas RN Position: [facility] RN Member Role: Primary Care Nurse Name: Humaira Smith RN Position: [facility] RN Member Role: Primary Care Nurse Name: Lindsey Smith RN Position: [facility] Foundry Helper Member Role: Primary Care Nurse Name: Chelsea Mendez RN Position: [facility] RN Member Role: Primary Care Nurse Name: Shelly Pendleton Position: [facility] Outreach Member Role: Lifetime Consulting Physician Name: Gracie Gilliland RN Position: [facility] RN Member Role: Primary Care Nurse Name: Claude Ho Position: Reference Physician Member Role: PCP Address: Address: [address] [place] [id number] Name: *Thad Seaman Attending Position: [facility] ED Medicine MD Name: Raúl Corley Position: [facility] ED TA [facility] Member Role: Patient Care Provider Name: Gabriela Cedeno RN Position: [facility] ED RN W/OE and Tasks Member Role: Patient Care Provider Name: Grisel Louise Position: [facility] ED OA Charge Member Role: ED Associate Care Team Related Persons Name: MOSES MCGHEE Address: [address] [place] [address] Name: LAURA MCGHEE Address: [address] [place] [address]
--- OUTSIDE RECORDS SUMMARY | 2024-01-31 07:44 | XMS_ITS | Continuity of Care Document ---
Author Organization [facility] y Address [address] [place] [address], [address] [place] [address]- Care Team Providers Care Restaurant Server Name Role Phone Claude Ho Primary Care Physician ( [phone] Encounter [facility] Date(s): 02/02/23 - 03/04/23 [facility] [address] [place] [address] Drive, [address] [place], [place] [address] Attending Physician: AdmLynsey banda Admitting Physician: [id number] Referring Physician: Admtr, Ar8 Allergies, Adverse Reactions, Alerts No Known Allergies [...] 100 in lifetime) entered on: 12/08/19 Sex Radiology * Event Display: MRI Spine, Non- BH Authored Date: [id number] * Event Display: MRI Spine, Non- BH Authored Date: Patient Care team information Care Team Personnel Name: Sunday Frank RN Position: S RN Member Role: Primary Care Nurse Name: Noemi Rivas RN Position: S RN Member Role: Primary Care Nurse Name: Humaira Smith RN Position: S RN Member Role: Primary Care Nurse Name: Lindsey Smith RN Position: [facility] Cord Tire Builder Member Role: Primary Care Nurse Name: Chelsea Mendez RN Position: [facility] RN Member Role: Primary Care Nurse Name: Shelly Pendleton Position: [facility] Outreach Member Role: Lifetime Consulting Physician Name: Gracie Gilliland RN Position: [facility] RN Member Role: Primary Care Nurse Name: Claude Ho Position: Reference Physician Member Role: PCP Address: Address: [address] [place] [address]- Care Team Related Persons Name: MOSES MCGHEE Address: [address] [address] Name: LAURA MCGHEE Address: [address] [place] [address] Name: HAYLEY MCGHEE Address: [place] [address]
--- OUTSIDE RECORDS SUMMARY | 2024-01-31 07:44 | XMS_ITS | Continuity of Care Document ---
Author Organization [facility] ter Address [address] [place] [id number]- Care Team Providers Care Physician Asst Name Role Phone Claude Ho Primary Care Physician Encounter [facility] [place] Date(s): 04/14/23 - 04/20/[address] [address]- Encounter Diagnosis Weakness of right leg(Final) - 04/14/23 Benzodiazepine overdose(Final) - 04/14/23 Slurred speech(Final) - 04/14/23 Discharge Disposition: Transfer to [facility] Facility Attending Physician: Alberta Cantrell MD Admitting Physician: Myah Flowers DO Referring Physician: Not on Staff, Referring MD Allergies, Adverse Reactions, Alerts No Known [...] 10:52:00 EDT Start Date: 12/08/19 Status: Ordered Ativan 1 mg oral tablet See Instructions, 1 mg By Mouth 2 times a day for 2 days then 1mg once a day for 2 days then stop.,# 6 tablet, 0 Refills, Acute 04/25/23 9:00:00 EST, 04/20/23 8:05:00 EST, Tablet, Partial fill upon patient request if the prescription is for a schedul... Start Date: 04/20/23 Stop Date: 04/25/23 Status: Ordered atorvastatin 80 mg oral tablet [...] gabapentin 300 mg oral capsule 300 mg, Capsule, By Mouth, 04/20/23 9:00:00 EST Start Date: 04/20/23 Stop Date: 04/20/23 Status: Completed gabapentin 300 mg oral capsule 300 mg, By Mouth, 3 times a day, Refills 0, Maintenance, 04/20/23 8:20:00 EST, Partial fill upon patient request if the prescription is for a schedule II opioid drug. Start Date: 04/20/23 Status: Ordered gabapentin 300 mg oral capsule 300 mg, Capsule, By Mouth, 04/19/23 21:00:00 EST Start Date: 04/19/23 Stop Date: 04/19/23 Status: Completed hydrOXYzine pamoate 50 mg oral capsule = [...] opioid drug. Start Date: 01/24/23 Status: Ordered oxyCODONE 5 mg oral tablet 5 mg, Tablet, By Mouth, Every 6 hours, PRN for Pain , Moderate, Routine, 04/16/23 10:31:00 EST Start Date: 04/16/23 Stop Date: 04/20/23 Status: Discontinued ProAir HFA 90 mcg/inh inhalation aerosol with [...] side Confirmed Active Spinal stenosis Confirmed Active Results Radiology Reports * Exam Date Time Procedure Performing Provider Status 04/14/23 3:11 PM Chest Portable Dhara Saeed; Auth (Veri fied) Notes: (Chest Portable) Reason For Exam: Cough RESULT: Chest Portable Chest Portable Reason: Cough; Clinical Question(s): Pneumonia. COMPARISON: 01/27/2023 FINDINGS: LINES AND TUBES: None. LUNGS AND PLEURA: Clear lungs. Normal pulmonary vascularity. No pleural effusion. No pneumothorax. HEART, MEDIASTINUM AND ALESSANDRA: Heart is normal in size. Normal mediastinal and hilar contour. BONES AND SOFT TISSUES: No acute abnormality. IMPRESSION: No acute abnormality. WSN: [id number] Ordering Physician: Ivory Douglass Dictated By: Aman Marks MD Dictated Date/Time: 04/14/23 3:52 pm Reviewed By: Aman Marks MD Signed By: Aman Marks MD Signed Date/Time: 04/14/23 3:52 pm Transcribed By: LETTY Transcribed Date/Time: 04/14/23 3:51 pm * Exam Date Time Procedure Performing Provider Status 04/14/23 1:[address] Angio Neck Tiffany Goss; Auth (Verified) Notes: (CT Angio Neck) Reason For Exam: Aneurysm, neck vessel(s);Other: RESULT: CT Angio Neck CT Angio Head, CT Angio Neck Reason: Other:; Neuro deficit, acute, stroke suspected; Clinical Question(s): Other:; Hematoma Aneurysm / Other: TECHNIQUE: CT angiogram of the head and neck was performed after bolus administration of intravenous contrast. 100 mL of Omnipaque 300 was administered intravenously. Coronal and sagittal MIP reformatted images were obtained. Additional 3-D images were created on a separate workstation under concurrent supervision by the attending radiologist. All stenoses are measured using NASCET criteria. Weight-based protocol using automatic tube modulation was used to optimize exposure parameters. RADIATION DOSE PARAMETERS: CTDIvol Body: 13.17 mGy, DLP Body: 401 mGy*cm. COMPARISON: Noncontrast CT head performed concurrently. FINDINGS: CTA OF THE NECK: Arch: There is a three vessel aortic arch. There is mild atherosclerotic plaque of the aortic arch,but origins of the supra aortic vessels are patent. Mild soft and calcified plaque adjacent to the proximal left subclavian artery with minimal narrowing. The right subclavian artery is unremarkable. Right carotid system: The common carotid and cervical internal carotid arteries are patent. No stenosis (0%) by NASCET criteria. Left carotid system: The common carotid and cervical internal carotid arteries are patent. No stenosis (0%) by NASCET criteria. Right vertebral: Patent. Left vertebral: Calcification adjacent to the origin. The cervical left vertebral artery is widely patent. Other: Soft tissues and bones: No evidence of lymphadenopathy or mass. 4 mm lucency within the left lobe of the thyroid gland which lies below size threshold 4 thyroid sonography recommendation. Visualized lung apices are clear. Status post ACDF at C5-C6 and C6-C7. Uncovertebral spurring is present at these levels with severe foraminal stenoses. CTA OF THE HEAD: Anterior circulation: Bilateral intracranial ICAs and their FARRAH and MCA branches are patent. Posterior circulation: Bilateral intracranial vertebral arteries, the basilar artery, and bilateralsuperior cerebellar and posterior cerebral artery branches are patent. Veins: Major dural venous sinuses are patent. Other: Soft tissues and bones: No midline shift or effacement of the basal cisterns. No space-occupying hemorrhage. No territorial loss of espinoza-white matter differentiation. The visualized extracranial soft tissues and orbital structures are unremarkable. No acute bony abnormality. IMPRESSION: 1. No acute intracranial large vessel occlusion. 2. No hemodynamically-significant stenosis of the extracranial internal carotid and vertebral arteries. 3. Status post ACDF at C3 5-C6 and C6-C7. Severe bilateral foraminal stenoses are present at these levels. WSN: [id number] Ordering Physician: Ivory Douglass Dictated By: Leobardo Altman MD Dictated Date/Time: 04/14/23 2:37 pm Reviewed By: Leobardo Altman MD Signed By: Leobardo Altman MD Signed Date/Time: 04/14/23 2:37 pm Transcribed By: LETTY Transcribed Date/Time: 04/14/23 2:27 pm * Exam Date Time Procedure Performing Provider Status 04/14/23 1:[address] Angio Head Tiffany Goss; Auth (Verified) Notes: (CT Angio Head) Reason For Exam: Neuro deficit, acute, stroke suspected;Other: RESULT: CT Angio Head CT Angio Head, CT Angio Neck Reason: Other:; Neuro deficit, acute, stroke suspected; Clinical Question(s): Other:; Hematoma Aneurysm / Other: TECHNIQUE: CT angiogram of the head and neck was performed after bolus administration of intravenous contrast. 100 mL of Omnipaque 300 was administered intravenously. Coronal and sagittal MIP reformatted images were obtained. Additional 3-D images were created on a separate workstation under concurrent supervision by the attending radiologist. All stenoses are measured using NASCET criteria. Weight-based protocol using automatic tube modulation was used to optimize exposure parameters. RADIATION DOSE PARAMETERS: CTDIvol Body: 13.17 mGy, DLP Body: 401 mGy*cm. COMPARISON: Noncontrast CT head performed concurrently. FINDINGS: CTA OF THE NECK: Arch: There is a three vessel aortic arch. There is mild atherosclerotic plaque of the aortic arch,but origins of the supra aortic vessels are patent. Mild soft and calcified plaque adjacent to the proximal left subclavian artery with minimal narrowing. The right subclavian artery is unremarkable. Right carotid system: The common carotid and cervical internal carotid arteries are patent. No stenosis (0%) by NASCET criteria. Left carotid system: The common carotid and cervical internal carotid arteries are patent. No stenosis (0%) by NASCET criteria. Right vertebral: Patent. Left vertebral: Calcification adjacent to the origin. The cervical left vertebral artery is widely patent. Other: Soft tissues and bones: No evidence of lymphadenopathy or mass. 4 mm lucency within the left lobe of the thyroid gland which lies below size threshold 4 thyroid sonography recommendation. Visualized lung apices are clear. Status post ACDF at C5-C6 and C6-C7. Uncovertebral spurring is present at these levels with severe foraminal stenoses. CTA OF THE HEAD: Anterior circulation: Bilateral intracranial ICAs and their FARRAH and MCA branches are patent. Posterior circulation: Bilateral intracranial vertebral arteries, the basilar artery, and bilateralsuperior cerebellar and posterior cerebral artery branches are patent. Veins: Major dural venous sinuses are patent. Other: Soft tissues and bones: No midline shift or effacement of the basal cisterns. No space-occupying hemorrhage. No territorial loss of espinoza-white matter differentiation. The visualized extracranial soft tissues and orbital structures are unremarkable. No acute bony abnormality. IMPRESSION: 1. No acute intracranial large vessel occlusion. 2. No hemodynamically-significant stenosis of the extracranial internal carotid and vertebral arteries. 3. Status post ACDF at C3 5-C6 and C6-C7. Severe bilateral foraminal stenoses are present at these levels. WSN: [id number] Ordering Physician: Ivory Douglass Dictated By: Leobardo Altman MD Dictated Date/Time: 04/14/23 2:37 pm Reviewed By: Leobardo Altman MD Signed By: Leobardo Altman MD Signed Date/Time: 04/14/23 2:37 pm Transcribed By: LETTY Transcribed Date/Time: 04/14/23 2:27 pm * Exam Date Time Procedure Performing Provider Status 04/14/23 1:[address] Cervical Spine W/O Contrast Tiffany Jay i; Auth (Verified) Notes: (CT Cervical Spine W/O Contrast) Reason For Exam: Trauma RESULT: CT Cervical Spine W/O Contrast CT Head/Brain W/O Contrast, CT Cervical Spine W/O Contrast INDICATION: Reason: Trauma ,Neuro deficit, acute, stroke suspected; Clinical Question(s): Other:; Hematoma Infarction TECHNIQUE: Noncontrast head CT using axial technique was reconstructed in axial and coronal planes.Noncontrast spiral CT through the cervical spine was formatted in 3 planes. Automatic tube modulation was used for the cervical spine and iterative dose reconstruction was used for both the head and cervical spine to optimize scan parameters and image quality. CTDIvol Body: 13.40 mGy, DLP Body: 370 mGy*cm. CTDIvol Head: 41.80 mGy, DLP Head: 672 mGy*cm. COMPARISON: CT head and cervical spine 12/17/2022. FINDINGS: Barrel Plater View Findings, Lines and Tubes: None. BRAIN AND EXTRA-AXIAL SPACES: No parenchymal hemorrhage, midline shift, or mass effect. Espinoza-white matter differentiation is wellpreserved. No acute infarct. Negative insular ribbon and hyperdense vessel signs. Ventricles, sulci, and basilar cisterns are normal. No white matter lesions. No subarachnoid hemorrhage. No subdural or epidural collection. CALVARIUM, SKULL BASE, AND SOFT TISSUES: No fractures or suspicious bony lesions. The paranasal sinuses and mastoid air cells are clear. Visualized orbits and globes are intact. The extracranial soft tissues are unremarkable. CERVICAL SPINE: No fracture. No acute osseous abnormalities. Normal alignment. No locked or perched facet. Patient is status post C5 on C6 and C6-C7 intervertebral fusion. The hardware is intact. Similar configuration of the hardware without any new abnormal lucency. Unchanged moderate-severe neural foraminal narrowing at C5-C6 and C6-C7 bilaterally. The remainder of the intervertebral disc spaces and vertebral body heights are preserved. OTHER BONES: No acute abnormality. CERVICAL SOFT TISSUES AND LUNG APICES: Normal soft tissues. Visualized lung apices are clear. Normal thyroid. IMPRESSION: No acute abnormality of the head or cervical spine. WSN: [id number] Ordering Physician: Ivory Douglass Dictated By: Hao Timmons MD Dictated Date/Time: 04/14/23 1:58 pm Reviewed By: Hao Timmons MD Signed By: Hao Timmons MD Signed Date/Time: 04/14/23 1:58 pm Transcribed By: LETTY Transcribed Date/Time: 04/14/23 1:50 pm * Exam Date Time Procedure Performing Provider Status 04/14/23 1:[address] Head/Brain W/O Contrast Tiffany Goss; Auth (Verified) Notes: (CT Head/Brain W/O Contrast) Reason For Exam: Neuro deficit, acute, stroke suspected;Other: RESULT: CT Head/Brain W/O Contrast CT Head/Brain W/O Contrast, CT Cervical Spine W/O Contrast INDICATION: Reason: Trauma ,Neuro deficit, acute, stroke suspected; Clinical Question(s): Other:; Hematoma Infarction TECHNIQUE: Noncontrast head CT using axial technique was reconstructed in axial and coronal planes.Noncontrast spiral CT through the cervical spine was formatted in 3 planes. Automatic tube modulation was used for the cervical spine and iterative dose reconstruction was used for both the head and cervical spine to optimize scan parameters and image quality. CTDIvol Body: 13.40 mGy, DLP Body: 370 mGy*cm. CTDIvol Head: 41.80 mGy, DLP Head: 672 mGy*cm. COMPARISON: CT head and cervical spine 12/17/2022. FINDINGS: Barrel Plater View Findings, Lines and Tubes: None. BRAIN AND EXTRA-AXIAL SPACES: No parenchymal hemorrhage, midline shift, or mass effect. Espinoza-white matter differentiation is wellpreserved. No acute infarct. Negative insular ribbon and hyperdense vessel signs. Ventricles, sulci, and basilar cisterns are normal. No white matter lesions. No subarachnoid hemorrhage. No subdural or epidural collection. CALVARIUM, SKULL BASE, AND SOFT TISSUES: No fractures or suspicious bony lesions. The paranasal sinuses and mastoid air cells are clear. Visualized orbits and globes are intact. The extracranial soft tissues are unremarkable. CERVICAL SPINE: No fracture. No acute osseous abnormalities. Normal alignment. No locked or perched facet. Patient is status post C5 on C6 and C6-C7 intervertebral fusion. The hardware is intact. Similar configuration of the hardware without any new abnormal lucency. Unchanged moderate-severe neural foraminal narrowing at C5-C6 and C6-C7 bilaterally. The remainder of the intervertebral disc spaces and vertebral body heights are preserved. OTHER BONES: No acute abnormality. CERVICAL SOFT TISSUES AND LUNG APICES: Normal soft tissues. Visualized lung apices are clear. Normal thyroid. IMPRESSION: No acute abnormality of the head or cervical spine. WSN: [id number] Ordering Physician: Ivory Douglass Dictated By: Hao Timmons MD Dictated Date/Time: 04/14/23 1:58 pm Reviewed By: Hao Timmons MD Signed By: Hao Timmons MD Signed Date/Time: 04/14/23 1:58 pm Transcribed By: LETTY Transcribed Date/Time: 04/14/23 1:50 pm Vital Signs Most recent to oldest [Reference Range]: 1 2 3 4 Height 178 cm (04/20/23 7:09 AM) 178 cm (04/19/23 7:53 AM) 178 cm (04/16/23 6:57 PM) Weight 65.7 kg (04/15/23 6:29 PM) Oxygen Saturation [94-100 %] 99 % (04/20/23 7:09 AM) 98 % (04/19/23 8:00 PM) 100 % (04/19/23 7:53 AM) Pulse Rate [55-90 bpm] 66 bpm (04/20/23 7:09 AM) 82 bpm (04/19/23 8:00 PM) 70 bpm (04/19/23 7:53 AM) Body Mass Index [18.5-24.99 kg/m2] 20.74 kg/m2 (04/15/23 6:29 PM) Blood Pressure [90-138/55-84 mm Hg] 148/86mm Hg *H* (04/20/23 7:09 AM) 136/91mm Hg (04/19/23 8:00 PM) 149/92mm Hg *H* (04/19/23 7:53 AM) Respiratory Rate [16-30 br/min] 20 br/min (04/20/23 8:02 AM) 18 br/min (04/20/23 7:09 AM) 17 br/min (04/19/23 8:46 PM) 17 br/min (04/19/23 8:46 PM) Temperature [96.8-100.4 DegF] 98.2 DegF (04/20/23 7:09 AM) 98.4 DegF (04/19/23 8:00 PM) 98.4 DegF (04/19/23 7:53 AM) Mode of Delivery (Oxygen) Room air (04/20/23 7:09 AM) Room air (04/19/23 8:00 PM) Room air (04/19/23 7:53 AM) Blood pressure sites Arm, right (04/20/23 7:09 AM) Arm, right (04/19/23 8:00 PM) Arm, left (04/19/23 7:53 AM) Temperature Route Oral (04/20/23 7:09 AM) Oral (04/19/23 8:00 PM) Oral (04/19/23 7:53 AM) Dry Weight 65.7 kg (04/15/23 6:29 PM) Social History Social History Type Response Smoking Status Never (less than 100 in lifetime) entered on: 12/08/19 Sex Admission evaluation note * Chintan SHERWOOD, Paco Lancaster: PERFORM, MODIFY Event Display: Admission Note Authored Date: Patient: ??GAURAV MCGHEE ? Age:??57 Years?Sex:??Male?:??1965?? Chief Complaint/Reason for Consultation AMS, slurred speech. History of Present Illness 57-year-old male patient with a past medical history significant for hypertension, L4-L5 and L5-S1 OLIF, chronic pain and peripheral neuropath who was brought to the hospital for evaluation of altered mental status in the setting of possible overdose and being admitted for altered mental status and rhabdomyolysis. ?? Per ED notes: patient daughter stated over the past month patient has had been endorsing suicidal ideations frequently. ??She reports him constantly saying he is going to overdose on medications. ??She also states that he has been buying tramadol, gabapentin and Xanax online. ??Patient's son went to check on him this morning and found patient face down on the floor with garbled speech. ?? In the emergency department he was afebrile and hemodynamically stable on room air with good oxygensaturation.?? His lab including complete blood cell count, basic metabolic panel and lactic acid were largely unremarkable.?? His total CK was 1311.?? His urine drug screen was positive for benzodiazepine.?? He was unremarkable.?? CT head and cervical spine without contrast were largely unremarkable.?? CT angiogram of the head and neck showed no acute intracranial large vessel occlusion -was noted for postoperative ACDF at C5-C6 and C6-C and severe bilateral foraminal stenosis at those levels.?? He was given 1 L of LR and being admitted for further evaluation. ?? On my evaluation patient is alert and oriented x3. He denies suicidal ideation or attempt. He reports being under a lot of stress lately because of his separation and chronic back pain. He reportsusing benzodiazepine to help him sleep and yesterday consumed 10 mg of benzodiazepine. He stopped taking methadone because he did not want to get addicted. Review of Systems Constitutional:?No weight loss, fever, chills, weakness or fatigue. Cardiovascular:??No chest pain,pressure or discomfort. No palpitations or pedal edema. Respiratory:??No shortness of breath, cough or sputum production. Gastrointestinal:?No anorexia, nausea, vomiting or diarrhea. No abdominal pain or blood in stool. Genitourinary: No burning micturition. No urinary frequency or incontinence. Neurologic: No headache, dizziness, syncope, unilateral weakness, ataxia, numbness or tingling in the extremities. No change in bowel or bladder control. Musculoskeletal: back pain. Hematologic: No bleeding or bruising. Lymphatics: No enlarged lymph nodes. Psychiatric: No depression or anxiety. Endocrine: No reports of sweating. No cold or heat intolerance. No polyuria or polydipsia. All other systems were reviewed and are negative.?? Objective Vital Signs?? Temperature: 97.6 DegF (04/14/23 19:03:00) Temperature Route: Oral (04/14/23 19:03:00) Pulse Rate: 81 bpm (04/14/23 20:10:00) Respiratory Rate: 22 br/min (04/14/23 20:10:00) Systolic Blood Pressure: 127 mm Hg (04/14/23 20:10:00) Diastolic Blood Pressure:??88 mm Hg??High (04/14/23 20:10:00) Blood pressure sites: Arm, left (04/14/23 20:10:00) Mean Arterial Pressure: 106 mm Hg (04/14/23 19:03:00) Pulse Pressure: 39 mm Hg (04/14/23 20:10:00) Oxygen Saturation: 95 % (04/14/23 20:10:00) Mode of Delivery (Oxygen): Room air (04/14/23 20:10:00) Early Warning Score: 6 (04/14/23 20:14:02) ? Physical Exam Constitutional: Alert, in no acute distress. Head: Normocephalic. Eyes: Pupils are equal, round and reactive to light. Extraocular muscles intact. No pallor or scleral icterus Ear, Nose and Throat: mucous membranes moist. Ears and nose - no obvious deformities. Neck: Supple, Full range of motion.No JVD or bruits. Respiratory:??Clear to auscultation. No wheezing or rhonchi.??No use of accessory muscles. No tactile fremitus.?? Cardiovascular:??PMI not visible. S1 S2 regular. No murmurs, rubs or gallops. Gastrointestinal:??Abdomen soft, non-tender, non-distended. Genitourinary:??No costovertebral angle tenderness. Extremities: No lower extremity pitting edema. No cyanosis or clubbing. Neurologic:??AAOx3, Cranial nerves II-XII grossly intact. Speech normal, no facial droop. No focal neurological deficits. Moves all extremities spontaneously. Sensation intact bilaterally.??Flexor plantar response Musculoskeletal:??No gross deformities on inspection. Heme/Lymphatics:??Palpation of neck reveals no swelling or tenderness of neck nodes.?? Psychiatric: Normal mood and affect. Assessment/Plan 57-year-old male patient with a past medical history significant for hypertension, L4-L5 and L5-S1 OLIF, chronic pain and peripheral neuropath who was brought to the hospital for evaluation of altered mental status in the setting of possible overdose and being admitted for altered mental status and rhabdomyolysis. ?? Active Problem list:?? #?Suicidal ideation ??(R43.639): patient daughter stated over the past month patient has had been endorsing suicidal ideations frequently. ??She reports him constantly saying he is going to overdose on medications. ??She also statesthat he has been buying tramadol, gabapentin and Xanax online. 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 - psychiatry consult. ?? #?Rhabdomyolysis ??(M62.82): received 1 L of LR. - monitor kidney function. - repeat total CK.? #?Benzodiazepine overdose ??(T42.4X1A) #?Slurred speech ??(R47.81) improved. # ??Altered mental status ??(R41.82): improved - in setting of benzo use. On my evaluation patient is alert and oriented x3. He denies suicidal ideation or attempt. He reports being under a lot of stress lately because of his separation and chronic back pain. He reports using benzodiazepine to help him sleep and yesterday consumed 10 mg of benzodiazepine. He stopped taking methadone because he did not want to get addicted. ?? # ??Chronic pain ??(G89.29) #?Spinal stenosis ??(M48.00) s/p L4-L5 and L5-S1 OLIF - consider neurosurgery consult - patient was scheduled for nerve conduction study to decide on surgical option. - pain medicine consult - ? steroid injection. ?? Chronic Problem list: # HTN (hypertension) ??(I10)??-??HLD (hyperlipidemia) ??(E78.5): hold anti- hypertensive for now - can resume if blood pressure rises. ?? Prophylaxis: VTE: encourage early ambulation. ?? Goal of care: Code Status: full code (confirmed with the patient) ? Histories Allergies Allergies ?(Active and Proposed Allergies [...] 06/18/18 ? Social History Alcohol Details:??Use: Never. Sexual Details:??Sexually involved in last 6 months: No. ??Gender identity: Identifies as male. ??Self described orientation: Straight or heterosexual. Substance Abuse Details:??Use: Never. Tobacco Details:??Use: Never (less than 100 in lifetime). ? Family History Daughter: Multiple sclerosis ? Medications Home Medications Albuterol (ProAir HFA 90 mcg/inh inhalation aerosol with adapter)?2?puff(s)?Inhalation?Every 6 hours?as needed?Cough Atorvastatin (atorvastatin 80 mg oral tablet)?1?tab(s)?80?Milligram?By Mouth?Daily Celecoxib (celecoxib 200 mg oral capsule)?1?capsule?200?Milligram?By Mouth?2 times a day Fluticasone-Salmeterol (Advair Diskus 100 mcg-50 mcg inhalation powder)?1?inhalation?Inhalation?2 times a day Gabapentin?By Mouth Lisinopril (lisinopril 10 mg oral tablet)?10?Milligram?1?tablet?By Mouth?Daily Methadone?70?Milligram?By Mouth?Daily Multivitamin?1?tab(s)?By Mouth?Daily Omeprazole (omeprazole 40 mg oral enteric coated capsule)?1?capsule?40?Milligram?By Mouth?Daily Ropinirole (rOPINIRole 0.25 mg oral tablet)?TAKE 4 TABLETS BY MOUTH AT BEDTIME Trazodone (traZODone 50 mg oral tablet)?50?Milligram?1?tablet?By Mouth?Daily at bedtime ? Results Recent Labs BLOOD COUNT & DIFF WBC 7.7 k/mm3 ()?? 04/14/2023 14:45 RBC 4.60 m/mm3 (Low)?? 04/14/2023 14:45 Hgb 13.7 Gm/dL ()?? 04/14/2023 14:45 Hct 40.3 % (Low)?? 04/14/2023 14:45 MCV 87.6 femtoliters ()?? 04/14/2023 14:45 MCH 29.8 pg ()?? 04/14/2023 14:45 MCHC 34.0 g/dL ()?? 04/14/2023 14:45 Platelet Count 174 k/mm3 ()?? 04/14/2023 14:45 RDW-SD 42.2 femtoliters ()?? 04/14/2023 14:45 MPV 10.9 femtoliters ()?? 04/14/2023 14:45 Nucleated RBC (Automated) 0.0 #/100 WBC'S ()?? 04/14/2023 14:45 Abs. NRBC 0.0 k/mm3 ()?? 04/14/2023 14:45 Abs. Neut 5.4 k/mm3 ()?? 04/14/2023 14:45 Abs. Lymph 1.4 k/mm3 ()?? 04/14/2023 14:45 Abs. [place] 0.8 k/mm3 ()?? 04/14/2023 14:45 Abs. Eo 0.1 k/mm3 ()?? 04/14/2023 14:45 Abs. Baso 0.0 k/mm3 ()?? 04/14/2023 14:45 Neut % 69.2 % ()?? 04/14/2023 14:45 Lymph % 18.5 % ()?? 04/14/2023 14:45 Valencia % 10.5 % ()?? 04/14/2023 14:45 Eos % 1.0 % ()?? 04/14/2023 14:45 Baso % 0.4 % ()?? 04/14/2023 14:45 Imm Gran 0.4 % ()?? 04/14/2023 14:45 Abs. Imm Gran 0.0 k/mm3 ()?? 04/14/2023 14:45 ?? CARDIAC CK, Total 1311 units/L (High)?? 04/14/2023 14:45 High Sensitivity Troponin (HSTnT) 14 ng/L ()?? 04/14/2023 17:24 ?? CHEM GENERAL Sodium 142 mmol/L ()?? 04/14/2023 14:45 Potassium 4.1 mmol/L ()?? 04/14/2023 14:45 Chloride 108 mmol/L (High)?? 04/14/2023 14:45 Bicarbonate Level 27 mmol/L ()?? 04/14/2023 14:45 Anion Gap 7 ()?? 04/14/2023 14:45 Glucose Level 85 mg/dL ()?? 04/14/2023 14:45 BUN 11 mg/dL ()?? 04/14/2023 14:45 Creatinine-Blood 0.7 mg/dL ()?? 04/14/2023 14:45 Estimated GFR Creatinine 105 ML/MIN/1.73 M2 ()?? 04/14/2023 14:45 Calcium 8.8 mg/dL ()?? 04/14/2023 14:45 Lactate 0.9 mmol/L ()?? 04/14/2023 14:45 ?? ENDOCRINE/TUMOR MARKER TSH 0.42 uIU/mL ()?? 04/14/2023 14:45 ?? TOXICOLOGY/TDM Ethanol, Serum or Plasma NONE DETECTED mg/dL ()?? 04/14/2023 14:45 Salicylate Level <0.3 mg/dL (Low)?? 04/14/2023 14:45 Barbiturate Screen, Urine NONE DETECTED ()?? 04/14/2023 16:19 Cannabinoid Screen, Urine NONE DETECTED ()?? 04/14/2023 16:19 Cocaine Metabolite Screen, Urine NONE DETECTED ()?? 04/14/2023 16:19 Benzodiazepine Screen, Urine POSITIVE (Abnormal)?? 04/14/2023 16:19 Amphetamine Screen, Urine NONE DETECTED ()?? 04/14/2023 16:19 Opiate Screen, Urine NONE DETECTED ()?? 04/14/2023 16:19 Acetaminophen Level <5 mg/L (Low)?? 04/14/2023 14:45 ?? UA/URINALYSIS Appear/Color, Urine COLORLESS ()?? 04/14/2023 16:19 Specific [place], Urine 1.049 (High)?? 04/14/2023 16:19 pH, Urine 6.0 ()?? 04/14/2023 16:19 Albumin, Urine NEGATIVE ()?? 04/14/2023 16:19 Glucose, Urine NEGATIVE ()?? 04/14/2023 16:19 Ketones, Urine NEGATIVE ()?? 04/14/2023 16:19 Bilirubin, Urine NEGATIVE ()?? 04/14/2023 16:19 Hemoglobin, Urine NEGATIVE ()?? 04/14/2023 16:19 Nitrite, Urine NEGATIVE ()?? 04/14/2023 16:19 Leukocyte, Urine NEGATIVE ()?? 04/14/2023 16:19 Urobilinogen NORMAL mg/dL ()?? 04/14/2023 16:19 WBC's, Urine NONE SEEN /HPF ()?? 04/14/2023 16:19 RBC's, Urine NONE SEEN /HPF ()?? 04/14/2023 16:19 Squamous Epith <1 /HPF ()?? 04/14/2023 16:19 Hold Urine Culture Testing available 48 hours from time of collection. ()?? 04/14/2023 16:19 ?? VIROLOGY Influenza A PCR NEGATIVE ()?? 04/14/2023 19:07 Influenza B PCR NEGATIVE ()?? 04/14/2023 19:07 RSV PCR NEGATIVE ()?? 04/14/2023 19:07 COVID-19 PCR Specimen Source NASAL ()?? 04/14/2023 19:07 COVID-19 PCR Result NEGATIVE ()?? 04/14/2023 19:07 ? EKG study * Event Display: EKG Authored Date: * Event Display: ECG 12-Lead Authored Date: Please click on pdf link to open report * Event Display: ECG 12-Lead Authored Date: Ventricular Rate: 88 BPM Atrial Rate: 88 BPM P-R Interval: 178 ms QRS Duration: 78 ms Q-T Interval: 348 ms QTC Calculation(Bazett): 421 ms P [place]: 81 degrees R [place]: 61 degrees T [place]: 65 degrees Normal sinus rhythm Normal ECG When compared with ECG of 19-FEB-2023 08:59, No significant change was found Confirmed by NAE FERNÁNDEZ ([id number]) on 04/15/2023 2:44:56 PM [place]: NAE FERNÁNDEZ Cardiology * Event Display: Cardiac Rhythm Strips Authored Date: * Event Display: Cardiac Rhythm Strips Authored Date: * Event Display: Cardiac Rhythm Strips Authored Date: * Event Display: Cardiac Rhythm Strips Authored Date: Hospital Progress note * Ronald Salas RN: MODIFY, SIGN, PERFORM, SIGN, VERIFY Event Display: Progress Note Hospital Authored Date: Patient: GAURAV MCGHEE Age: 57 years Sex: Male : 1965 Associated Diagnoses: None Author: Ronald Salas RN Findings Problem Related to Alteration in Psychosocial : Alteration in Psychosocial Function/new 04/19/2023 21:00 EST Alteration in Psychosocial Related to Substance abuse, Suicidal, Other: Benzo withdrawl Goals & Outcomes, Psychosocial Psychosocial support will be provided to Pt/S.O. as needed, Pt will identify stressors leading up to event, Pt will state importance of adhering to medication regime, Pt/caregiver will be offered appropriate resources & support, Pt/caregiver will express feelings/needs/fears /concerns, Pt/caregiver will maintain/obtain psychological stability, Pt/caregiver will participate in coping skill counseling Interventions, Psychosocial Assess psychosocial needs, Assess readiness to learn needed lifestyle changes BH Goals/Interventions, Psychosocial Yes Psychosocial, Problem Start 04/16/2023 23:41 Reviewed Plan with, Psychosocial Patient Patient Progression, Psychosocial Pt progressing according to plan . Nursing Data Vital Signs : VITAL SIGNS SECTION 04/19/2023 20:00 EST Temperature 98.4 DegF Temperature Route Oral Pulse Rate 82 bpm Respiratory Rate 18 br/min Systolic Blood Pressure 136 mm Hg Diastolic Blood Pressure 91 mm Hg H Blood pressure sites Arm, right Oxygen Saturation 98 % Mode of Delivery (Oxygen) Room air . Evaluation Pt A+Ox4, VSS on room air. Pt C/O 7/10 back pain, Oxycodone given with good effect. Pt C/O anxiety,Hydroxyzine given with good effect. Plan is for early D/C S3. See [facility] for full assessment. Call booth in reach hourly rounding in place. Constant intel recruiter at bedside. Safety/comfort maintained. . * Shyann Trujillo: PERFORM, SIGN, VERIFY Event Display: Progress Note Hospital Authored Date: [id number] Patient: GAURAV MCGHEE Age: 57 years Sex: Male : 1965 Associated Diagnoses: None Author: Shyann Trujillo Findings Narrative/Incidental pt. A/O x4. lungs sounds clear on room air. pills taken whole. pt. shows signs of depression. pt. monitored closley. constant intel recruiter at bedside. pt. ambulates on own. 5 out of 10 pain in feet. Gabapentin given pain reduced to 3 out of 10. pt. safety and comfort maintained. bed in locked and lowest position. call booth in reach. hourly rounding. * Alberta Cantrell MD: PERFORM Event Display: Progress Note Hospital Authored Date: Patient: ??GAURAV MCGHEE ? Age:??57 Years?Sex:??Male?:??1965?? Subjective seen and examined asking when he might go home per psych, home is not a safe dispo vitals stable sitter at bedside Review of Systems Objective Vital Signs?? Temperature: 98.4 DegF (04/19/23 07:53:00) Temperature Route: Oral (04/19/23 07:53:00) Pulse Rate: 70 bpm (04/19/23 07:53:00) Respiratory Rate: 16 br/min (04/19/23 10:22:00) Systolic Blood Pressure:??149 mm Hg??High (04/19/23 07:53:00) Diastolic Blood Pressure:??92 mm Hg??High (04/19/23 07:53:00) Blood pressure sites: Arm, left (04/19/23 07:53:00) Mean Arterial Pressure: 111 mm Hg (04/19/23 07:53:00) Pulse Pressure: 57 mm Hg (04/19/23 07:53:00) Oxygen Saturation: 100 % (04/19/23 07:53:00) Mode of Delivery (Oxygen): Room air (04/19/23 07:53:00) Early Warning Score: 0 (04/19/23 10:22:12) ? Intake/Output? 04/14 18:17 04/19 07:00 04/18 07:00 04/17 07:00 04/16 07:00 ?? 04/19 13:57 04/19 13:57 04/19 06:59 04/18 06:59 04/17 06:59 Intake ? 4018 ?0 ? 1335 ?720 ? 1213 Output ?300 ?0 ?0 ?0 ?300 Net Total ? 3718 ?0 ? 1335 ?720 ?913 ? Urine Count ? 12 ?0 ?5 ?4 ?3 ? Physical Exam General:??No acute distress, AAOx3. HEENT:??Atruamatic/normocephalic, Cardio:??Regular rate Respiratory:??CTA Abdomen:??Soft, NT, nondistended, Extremities:??No peripheral cyanosis or edema. Skin:??No rashes or hematomas appreciated. Neuro:??No focal deficits, normal gait psych: denies SI today, normal affect Results Recent Labs No labs resulted between 04/18/2023 00:00 and 04/19/2023 13:57? Assessment/Plan Gaurav Mcghee is a 57-year-old??M patient with a past medical history significant for hypertension, L4-L5 and L5-S1 OLIF, chronic pain and peripheral neuropath who was brought to the hospital forevaluation of altered mental status in the setting of possible overdose and was admitted for altered mental status and rhabdomyolysis. The rhabdomyolysis is resolving. The patient is being titrated off of benzodiazepines because of seizure activity presumed from withdrawal on 04/16.??The patient hasno hx of withdrawal related seizures. ? Suicidal ideation (R45.851):?? Patient daughter stated over the past month patient has had been endorsing suicidal ideations frequently. ??She reports him constantly saying he is going to overdose on medications. ??She also statesthat he has been buying tramadol, gabapentin and Xanax online. Seen by psych, patient meets criteria for inpatient psychiatric hospitalization for safety and stabilization. Patient may NOT leave AMA. Reached out to psych 04/19?? as patient states he no longer has SI. Per psych, patient's family has concern for ongoing SI. - Constant intel recruiter, suicide precautions - Patient cannot leave AMA - Inpatient psych bed placement, medically cleared, psych aware ? Benzodiazepine overdose (T42.4X1A):?? Patient denies that this was as an attempted suicide. States that he uses the medications to sleep but that he either took too many or accidently took something else. - Continue benzodiazepine taper ? Chronic pain (G89.29): Neuropathy (G60.9): Spinal stenosis (M48.00): Patient s/p L4-L5 and L5-S1 OLIF. reports first month post surgery he felt well, but since he has had back pain and neuropathy in his feet which he manages with Gabapentin Last spine MRI November 2022. Patient of Dr. Ortiz.??Patient was scheduled for nerve conduction study to decide on surgical option. No focal deficits to warrant inpatient neurosurgery consult - Continue Gabapentin 300 mg TID - Follow up with Dr. Ortiz as an outpatient ? Chronic, Stable, Resolved Conditions: Rhabdomyolysis (M62.82):??Resolving. CK 492 yesterday (04/17), down from 713 the day before??(04/16) Slurred speech (R47.81): Resolved Altered mental status (R41.82): Resolved HTN (hypertension) (I10):??Patient not hypertensive on admission. Restart home lisinopril if he becomes hypertensive ? Quality Measures: Diet: Cardiac Code: Full DVT: Ambulation OMN: Suicidality and Psychiatric management ?? Consult note * Kingsley BLAIR, Krista Smart: PERFORM, MODIFY Event Display: Consultation Note Authored Date: Patient: ??GAURAV MCGHEE ? Age:??57 Years?Sex:??Male?:??1965?? Chief Complaint/Reason for Consult neurology is consulted for seizure ? benzo withdrawal History of Present Illness 57 y/o LH M with PMH HTN, L4-L5, L5-S1 OLIF, peripheral neuropathy, chronic pain, difficulty sleeping presented to [facility] 04/14/23 with altered mental status, reported to take too many sleeping pills , and rhabdo (1300K)??who neurology is seeing for seizure ? benzo withdrawal. CTH nonacute, CTA h/n unremarkable. He tells me he buys ativan on the internet, 1mg tablets and takes some nights up to 10mgto help him sleep. It appears he came in 04/14 and did not take any ativan here until 04/16 around 2029 after he had shaking, blue lips, incontinence of urine, hypertensive, tachycardic. Since then??hehas been started on ativan 1mg q6h as recommended by psych per documentation. The admission note reports that the patient's daughter said he has been having suicidal ideation, says he is constantly going to overdose on medications, has been buying tramadol, gabapentin, xanax online. The patient's son went to check on him and found him face down with garbled speech. CK was 1300. Utox + for benzos.Prior hx of ETOH but denies currently. He has chronic leg shooting pain from peripheral neuropathy.He was on methadone in the past but not currently. ?? He tells me he had a seizure about 1 yr ago in the setting of stopping either gabapentin, tramadol, or ativan. It does not appear that he has had a seizure in the absence of withdrawal symptoms. He was born on time, progressed appropriately through school, no hx of meiningitis, no FH of seizure. ?? Physical Exam Vitals & Measurements T:??98.8?F?? HR:??76??(Peripheral)?? RR:??17?? BP:??144/86?? SpO2:??99%?? HT:??178??cm?? WT:??65.7??kg?? BMI:??20.74?? Gen: NAD HEENT: NC/AT Lungs:?? normal I:E Abd: soft, NT/ND Extremeties: warm and perfused Neuro Exam Mental status: alert, oriented to person, place, month, year, situation. speech clear and fluent. follows commands. lack of eye contact at times Cranial Nerves: EOMI (no nystagmus), PERRLA, VFF, smile symmetric, pallate rises and falls symetrically, tongue midline Strength: strength 5/5 throughout with some limited ROM on LLE due to chronic pain. normal bulk andtone. BUE R>L tremor with arms outstretched (says chronic and does not get better with ativan) DTRs: 2+ bicep,, patellar, Coordination: no pronator drift. FTN intact. Sensation: sensation to LT intact, no extinction Assessment/Plan 57 y/o LH M with PMH HTN, L4-L5, L5-S1 OLIF, peripheral neuropathy, chronic pain, difficulty sleeping presented to [facility] 04/14/23 with altered mental status, reported to take too many sleeping pills , and rhabdo (1300K)??who neurology is seeing for seizure ? benzo withdrawal. CTH nonacute, CTA h/n unremarkable. ?? dx: suspect this is benzo withdrawal seizure. he was admitted 04/14, did not receive ativan then on 04/16 at ~ 2030 had a witnessed shaking event with urinary incontinence, tachycardia, and hypertension ?? Rec: -agree with benzo taper to avoid withdrawal seizures -would not treat with AEDs -no need for further epilepsy work up -if he continues to have seizures will reconsider seizure work up ?? Thank you. No additional recommendations. Signing off. Please call with questions. d/w Dr. Miramontes Problem List/Past Medical History Ongoing Altered mental status Asthma Carpal tunnel syndrome Chronic pain HLD (hyperlipidemia) HTN (hypertension) Idiopathic neuropathy Lumbar facet joint pain Lumbar radiculitis Rhabdomyolysis Sacroiliac joint dysfunction of right side Spinal stenosis Suicidal ideation Withdrawal from benzodiazepine Withdrawal from opioids Procedure/Surgical History Esophagogastroduodenoscopy: 06/18/18 Colonoscopy: 06/18/18 Home Medications Albuterol: 2 puffs, Inhalation, Every 6 hours, PRN (Cough) Atorvastatin: 80 mg = 1 tablet, By Mouth, Daily Celecoxib: 200 mg = 1 capsule, By Mouth, 2 times a day Fluticasone-Salmeterol: 1 inhalation, Inhalation, 2 times a day Gabapentin: By Mouth Lisinopril: 10 mg = 1 tablet, By Mouth, Daily Methadone: 70 mg, By Mouth, Daily Multivitamin: 1 tablet, By Mouth, Daily Omeprazole: 40 mg = 1 capsule, By Mouth, Daily Ropinirole: TAKE 4 TABLETS BY MOUTH AT BEDTIME Trazodone: 50 mg = 1 tablet, By Mouth, Daily at bedtime Allergies NKA Social History Alcohol Use: Never. Sexual Sexually involved in last 6 months: No. Gender identity: Identifies as male. Self described orientation: Straight or heterosexual. Substance Abuse Use: Never. Tobacco Use: Never (less than 100 in lifetime). Family History Daughter: Multiple sclerosis * Fe SHERWOOD, Yrn De La Torre: PERFORM Event Display: Consultation Note Authored Date: I personally saw and examined the patient and agree with the findings and plan as noted below.?? Patient is a 57-year-old??male with history of hypertension, peripheral neuropathy, chronic pain, status post lumbar spinal surgery who presented with overdose and rhabdomyolysis for??whom??neurology??was called in the setting of a seizure.?? Patient had been admitted on 04/14 and had not received??benzodiazepines since admission. ??CT head and CTA were without acute findings.? Impression: ?probable provoked seizure in the setting of benzodiazepine withdrawal.?? No need for additional testing at this time or treatment with antiepileptics.?? Agree with benzodiazepine taper. * Louis Madrid DO: MODIFY Louis Madrid DO: MODIFY, MODIFY Louis Madrid DO: MODIFY, MODIFY Shayy Pack MD: MODIFY, MODIFY Shayy Pack MD: MODIFY Event Display: Consultation Note Authored Date: Patient: ??GAURAV MCGHEE ? Age:??57 Years?Sex:??Male?:??1965?? History of Present Illness Consult Information Referring Provider:??Paco Woodson MD Consulting Attending:??Louis Madrid, DO Sources of Information:??Patient??(X historian); [facility] records; daughter, Hayley Reason for Consultation: depression, concern for suicide attempt and ideation Manager Of Software Development: N/A, patient is a port gamble Marshallese speaker ?? HPI Gaurav Mcghee is a 57yo male w/ PMHx of HTN, HLD, asthma, carpal tunnel syndrome, spinal stenosis s/p L4-L5 and L5-S1 OLIF, chronic pain, peripheral neuropathy, and past psychiatric history of depression who presented to the [facility] ED on 04/14 with altered mental status, raising concern for toxic ingestion. In the ED, he was afebrile and hemodynamically stable with good oxygen saturation. Labs and imaging??were largely??unremarkable apart from a CK of 1311 and UDS positive for benzodiazepines. He was given??IV fluids for??rhabdomyolysis??and admitted for further??evaluation.??ED physician spoke to Gaurav's daughter, Hayley. She stated that he has??been??making suicidal statements overthe past month, expressing??desire to overdose on medication.??Psychiatry was consulted due to concern for suicide attempt in the setting of ongoing suicidal ideation. ?? On initial encounter, Gaurav confirms that he has been depressed ever since his??lumbar fusion surgery in October 2021. He states that it went bad and he has been having excruciating back pain ever since. 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 On top of that, he notes that he recently from his of many years. He describes anhedonia, stating I'm not even interested in TV anymore. He states that walking around the block is his only excitement. He also endorses insomnia, specifically difficulty fallingasleep. He denies any issues with energy, motivation or appetite. He describes significant feelingsof hopelessness and helplessness, stating I can't do the things I used to do. He also admits to guilt and regret over having the fusion operation done, stating maybe I could've done things differently. When asked about his overdose, he insists that he took 6-10mg of Ativan in order to sleep. Hedenies that it was an attempt to harm himself or end his life, reasoning that 6-10mg is not enough to kill himself. He states that Ativan is the only thing that helps him sleep, and does admit to buying it online for this purpose. He adamantly denies any recent suicidal ideation, stating that he often?? says things [he] doesn't mean. He exclaims, obviously, I'm not gonna kill myself. ??He noteshis five children are his main protective factor. He does admit to some passive wish, especial ly when he's having moments of intense pain. During these moments, he thinks to himself I'd ratherbe , but again insists that he is not suicidal. He remembers his son finding him altered, and admits to not being able to walk, move,??or balance himself at that time. He??does not think it was the Ativan that caused this - he??states that another doctor told him that he actually had a stroke.He reports feeling safe to return home, and advocates for discharge. ?? This hand sign writer speaks to Gaurav's eldest daughter and HCP, Hayley, to obtain collateral information ( ). Hayley expresses significant concern about her father. She states that her parents have actually been legally for 16 years and that her mother is currently seeing someone. She feels her father has been borderline delusional about this, often stating that his ex- is cheating on him or that they could get back together. In addition, Hayley confirms that her father has been struggling with worsening back pain ever since his operation in 2021. She has been diligently working on getting neurology appointments lined up for him so that he can start feeling better and return to work part-time. She explains that her father was an alcoholic when she was younger, and it that it caused a lot of issues in her parents' marriage. Once her father became sober, he started to develop a serious dependence on benzodiazepines (specifically Ativan) to sleep. When he ran out of Ativan, he would often by Robitussin. Hayley found out that her father had been purchasing Xanax, Tramadol, and Percocet online. She states that he was in huge denial about the fact that he probably has substance use issues. She tried to get him into substance use treatment, but he didn't want to go to rehab or to outpatient treatment. She ended up taking him to a methadone clinic, wherehe got put on methadone for a couple months. Unfortunately, he quit it cold-turkey about 2 weeks ago, and started buying medications online again. Hayley notes that her father has been making suicidal statements to her and her siblings everyday from morning til night. He often tells them he's gonna commit suicide by overdosing, texting them goodbye, and even telling his one daughter that he's never gonna meet his grandchild. Gaurav's brother and [id number] have reached out toHayley expressing concern after he made suicidal statements to them as well. It has gotten to a point where his children were planning to do an intervention this week. Hayley reveals that this is ac tually her father's second overdose - he first overdosed in December earlier this year, and went to [facility]. Per chart, he overdosed on Xanax but denied that it was a suicide attempt. Hayley states that her little brother had to do CPR on their father until the paramedics showed up. And this time, the same brother found their father face down on the floor. Hayley expresses that this whole situation has been very difficult and traumatic for the family. She states that her father is very prideful, stubborn and tends to minimize due to shame and embarrassment. She strongly advocates for inpatient psychiatric hospitalization. She tried to get him to see a therapist, but he only went??once and never followed up. Hayley states she is extremely worried about her father, and is okay with him being angry with her as long as he is safe. ?? Past Psychiatric History Diagnoses: depression Hospitalizations: no prior psychiatric hospitalizations Home meds: sertraline 100mg daily, buspar 5mg BID, gabapentin 800mg QID (confirmed with patient) Prior med trials:??venlafaxine, duloxetine, trazodone, ativan, citalopram, prebalin Outpatient providers: PCP prescribes medications; saw a therapist once at the request of his daughter, but did not follow up Suicide attempt: denies any prior suicide attempts, but daughter reports a prior overdose in December of this year - ED note 12/17/22 indicates ingestion of Xanax ?? 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 Substance Use History Tobacco: denies Alcohol:??history of alcoholism per daughter, currently sober Recreational/Illicit: denies any MJ, cocaine or opiate use; daughter notes history of benzodiazepine and opiate dependence, purchasing controlled substances online; he??was previously on methadone through a clinic ?? Family Psychiatric/Substance??Use History Maternal: mom with depression Review of Systems Pertinent positives as listed above in HPI. Otherwise, remainder of review of systems negative. Mental Status Vitals & Measurements T:??98.9?F?? TMIN:??97.3?F?? TMAX:??98.9?F?? HR:??84??(Peripheral)?? RR:??18?? BP:??136/91?? SpO2:??98%?? Mental Status Exam Appearance: 57yo male, dressed in hospital attire, wearing a hat Behavior: appropriate eye contact Attitude: calm, guarded Motor Activity/MSK: no psychomotor agitation or slowing,??devoid of tics, tremors Mood: depressed Affect: congruent, dysthymic, blunted Speech: normal rate, low tone, low volume Thought Process: linear, coherent Thought Content: minimizing of suicidality and events leading up to hospitalization, denies SI/HI Thought Perception: denies AVH; does not appear internally stimulated Cognition: orientation, memory and attention grossly intact, but not formally tested Insight: impaired Judgment: impaired Muscle strength/tone: Antigravity. No cogwheeling or rigidity noted.??Not observed ambulating, but moving all four extremities spontaneously. ?? Carson Suicide Score Carson Suicide Assessment Ca (04/15/23) Carson Suicide Score Last Asked Ca (04/14/23) Suicidal Intent No Plan Past Month-CSSRS: Yes (04/14/23) Suicidal Thoughts Method Past Mon-CSSRS: Yes (04/14/23) Suicidal Thoughts Past Month - CSSRS: No (04/15/23) Suicidal Thoughts Since Last Asked-CSSRS: No (04/14/23) Suicide Behavior Lifetime - CSSRS: No (04/15/23) Suicide Behavior Since Last Asked-CSSRS: No (04/14/23) Suicide Intent w/Plan Past Month - CSSRS: Yes (04/14/23) Wish to be Past Month - CSSRS: No (04/15/23) Assessment/Plan Gaurav Mcghee is a 57yo male w/ PMHx of HTN, HLD, asthma, carpal tunnel syndrome, spinal stenosis s/p L4-L5 and L5-S1 OLIF, chronic pain, peripheral neuropathy, and past psychiatric history of depression who presented to the [facility] ED on 04/14 with altered mental status, raising concern for toxic ingestion. In the ED, he was afebrile and hemodynamically stable with good oxygen saturation. Labs and imaging??were largely??unremarkable apart from a CK of 1311 and UDS positive for benzodiazepines. He was given??IV fluids for??rhabdomyolysis??and admitted for further??evaluation.??ED physician spoke to Gaurav's daughter, Hayley. She stated that he has??been??making suicidal statements overthe past month, expressing??desire to overdose on medication.??Psychiatry was consulted due to concern for suicide attempt in the setting of ongoing suicidal ideation. ?? On initial assessment, Gaurav confirms that he took 6-10mg Ativan in an attempt to sleep; he adamantly denies that it was a suicide attempt. While he admits to some recent depression and passive wish, mostly secondary to chronic back pain, he denies any recent suicidal ideation, intent or plan. Conversely, his daughter, Hayley, expresses significant concern about him and reports that hehas been making frequent suicidal statements to all of his five children. She notes that these statements have been specific with expressed plan to overdose on medications. She describes a significant history of alcoholism, benzodiazepine dependence and opiate dependence. She feels that he needs dual substance use and mental health treatment. She also notes that this is his second overdose, with the first one being in December of earlier this year. She strongly advocates for her father to go inpatient, noting that the whole family is concerned about him. Given recent overdose, history of prior overdose, family's report of expressed suicidal ideation, ongoing substance use issues,??and impaired insight/judgement (as evidenced by purchasing controlled??substances online, minimization of recent events/suicidality), Gaurav poses acute risk of harm to himself and meets criteria for inpatient psyc hiatric hospitalization. Regardless of whether or not Gaurav is voluntary for IPLOC, he appears to be a danger to himself by virtue of acute suicidality and impaired judgment secondary to underlying psychiatric illness, thus meeting criteria??for emergency restraint??and/or??hospitalization under M.G.L.?? 123, Section 12 at this time. ? Psychiatric??Diagnoses: Major depressive disorder, recurrent episode, severe, without psychotic features R/O Substance-induced depressive disorder Benzodiazepine Use Disorder, severe Alcohol Use Disorder, by history Opioid use disorder, severe, dependence, previously on maintenance therapy Suicidal ideation s/p attempt via toxic ingestion / drug overdose Query acute??benzodiazepine withdrawal Chronic back pain ? Recommendations: -Patient meets criteria for inpatient psychiatric hospitalization for safety and stabilization. Patient may NOT leave [place]. -Please reach out to pager [phone] once medically cleared so the psychiatry consultation service may refer this patient to the crisis disposition team??for initiation of bed search for IPLOC. -Continue constant intel recruiter and suicide precautions. -Given likely benzodiazepine dependence, in agreement with Ativan PRNs as clinically indicated. If CIWA scores are higher in the next 12-24 hours, consider initiation of scheduled Ativan 1 mg PO Q6-8H, with plan for slow taper as necessary. -Continue home sertraline 100 mg PO daily, gabapentin 800mg PO??four times daily (hold for excess sedation, AMS).?? -May discontinue??BuSpar as patient hasn't found this helpful and to limit polypharmacy. -Can utilize Vistaril 50mg Q6H PRN anxiety and??Trazodone 50mg daily at bedtime PRN insomnia. -If necessary, can utilize Zyprexa 5 mg PO/IV/IM Q6H PRN severe agitation. The preference is for POmedications, but if the patient refuses the oral medications and there is sufficient acute safety concern, can judiciously utilize IM equivalents for severe agitation.??This medication combination should only be utilized in the hospital setting and there is no need to discharge the patient on thesemedications. -Would note that these medications are only being utilized in the ER and/or medical floors while the patient awaits placement. Long-term need for these medications will need to be assessed by the patient's future treating psychiatrist. ? Thank you for allowing us to participate in this patient's care. We will continue to follow the patient as needed by the primary team. Please feel free to contact the Psychiatry consult service (pager [phone]) with any questions or concerns.? Attestation: Case discussed with psychiatry consultation??attending, Dr. Madrid. Recommendations relayed to primary team, Dr. Caceres. ?? Shayy Pack MD PGY3 Department of Psychiatry [facility] Pager [phone] Problem List/Past Medical History Ongoing Altered mental status Asthma Carpal tunnel syndrome Chronic pain HLD (hyperlipidemia) HTN (hypertension) Idiopathic neuropathy Lumbar facet joint pain Lumbar radiculitis Rhabdomyolysis Sacroiliac joint dysfunction of right side Spinal stenosis Suicidal ideation Withdrawal from benzodiazepine Withdrawal from opioids Procedure/Surgical History ???Colonoscopy (06/18/2018)???Esophagogastroduodenoscopy (06/18/2018) Medications Inpatient Acetaminophen Tablet, 650 mg, By Mouth, Every 4 hours, PRN Docusate Sodium Capsule, 100 mg= 1 capsule, By Mouth, 2 times a day, PRN Lactated Ringers 1,000 mL, 1000 mL, IV Infusion LORazepam Inj, 1 mg, IV Push Slowly, Every hour, PRN LORazepam Inj, 2 mg, IV Push Slowly, Every hour, PRN LORazepam Inj, 3 mg, IV Push Slowly, Every hour, PRN LORazepam Inj, 4 mg, IV Push Slowly, Every hour, PRN MiraLax Powder, 17 Gm= 1 pack/packet, By Mouth, Daily, PRN NaCL 0.9% Flush, 3 mL, IV Push, Every 8 hours NaCL 0.9% Flush, 3 mL, IV Push, Every 8 hours, PRN Robitussin DM Liquid, 10 mL, By Mouth, Every 4 hours, PRN Senna Tablet, 8.6 mg= 1 tablet, By Mouth, 2 times a day, PRN Simethicone Tablet, 80 mg, Chew, 3 times a day, PRN Home Advair Diskus 100 mcg-50 mcg inhalation powder, 1 inhalation, Inhalation, 2 times a day atorvastatin 80 mg oral tablet, 80 mg= 1 tablet, By Mouth, Daily celecoxib 200 mg oral capsule, 200 mg= 1 capsule, By Mouth, 2 times a day Gabapentin, By Mouth lisinopril 10 mg oral tablet, 10 mg= 1 tablet, By Mouth, Daily Methadone, 70 mg, By Mouth, Daily Multivitamin, 1 tablet, By Mouth, Daily omeprazole 40 mg oral enteric coated capsule, 40 mg= 1 capsule, By Mouth, Daily ProAir HFA 90 mcg/inh inhalation aerosol with adapter, 2 puffs, Inhalation, Every 6 hours, PRN rOPINIRole 0.25 mg oral tablet traZODone 50 mg oral tablet, 50 mg= 1 tablet, By Mouth, Daily at bedtime Allergies NKA Social History Alcohol Use: Never. Sexual Sexually involved in last 6 months: No. Gender identity: Identifies as male. Self described orientation: Straight or heterosexual. Substance Abuse Use: Never. Tobacco Use: Never (less than 100 in lifetime). Family History Multiple sclerosis: Daughter. Immunizations Vaccine Date Status tetanus/diphtheria/pertussis, acel(Tdap) 12/08/2019 Given pneumococcal 23-valent vaccine - Not Given Comments : Patient Refuses influenza virus vaccine, inactivated - Not Given Comments : Patient Refuses pneumococcal 23-valent vaccine - Not Given Comments : Patient Refuses influenza virus vaccine, inactivated - Not Given Comments : Patient Refuses Lab Results Event Name?? Event Result?? Normal Range?? Date/Time?? WBC 5.9 k/mm3 4 k/mm3 - 11 k/mm3 04/15/23 05:44:00 WBC 7.7 k/mm3 4 k/mm3 - 11 k/mm3 04/14/23 14:45:00 RBC 4.69 m/mm3??Low 4.7 m/mm3 - 6.1 m/mm3 04/15/23 05:44:00 RBC 4.6 m/mm3??Low 4.7 m/mm3 - 6.1 m/mm3 04/14/23 14:45:00 Hgb 13.9 Gm/dL 13.7 Gm/dL - 17.1 Gm/dL 04/15/23 05:44:00 Hgb 13.7 Gm/dL 13.7 Gm/dL - 17.1 Gm/dL 04/14/23 14:45:00 Hct 41.3 % 40.5 % - 50 % 04/15/23 05:44:00 Hct 40.3 %??Low 40.5 % - 50 % 04/14/23 14:45:00 MCV 88.1 femtoliters 80 femtoliters - 94 femtoliters 04/15/23 05:44:00 MCV 87.6 femtoliters 80 femtoliters - 94 femtoliters 04/14/23 14:45:00 MCH 29.6 pg 27 pg - 34 pg 04/15/23 05:44:00 MCH 29.8 pg 27 pg - 34 pg 04/14/23 14:45:00 MCHC 33.7 g/dL 33 g/dL - 37 g/dL 04/15/23 05:44:00 MCHC 34 g/dL 33 g/dL - 37 g/dL 04/14/23 14:45:00 Platelet Count 173 k/mm3 150 k/mm3 - 460 k/mm3 04/15/23 05:44:00 Platelet Count 174 k/mm3 150 k/mm3 - 460 k/mm3 04/14/23 14:45:00 RDW-SD 42.5 femtoliters ?? 04/15/23 05:44:00 RDW-SD 42.2 femtoliters ?? 04/14/23 14:45:00 MPV 10.2 femtoliters 9.4 femtoliters - 12.4 femtoliters 04/15/23 05:44:00 MPV 10.9 femtoliters 9.4 femtoliters - 12.4 femtoliters 04/14/23 14:45:00 Nucleated RBC (Automated) 0 #/100 WBC'S ?? 04/15/23 05:44:00 Nucleated RBC (Automated) 0 #/100 WBC'S ?? 04/14/23 14:45:00 Abs. NRBC 0 k/mm3 ?? 04/15/23 05:44:00 Abs. NRBC 0 k/mm3 ?? 04/14/23 14:45:00 Abs. Neut 5.4 k/mm3 1.3 k/mm3 - 7 k/mm3 04/14/23 14:45:00 Abs. Lymph 1.4 k/mm3 0.8 k/mm3 - 3.1 k/mm3 04/14/23 14:45:00 Abs. Valencia 0.8 k/mm3 0.4 k/mm3 - 1.3 k/mm3 04/14/23 14:45:00 Abs. Eo 0.1 k/mm3 0 k/mm3 - 0.4 k/mm3 04/14/23 14:45:00 Abs. Baso 0 k/mm3 0 k/mm3 - 0.1 k/mm3 04/14/23 14:45:00 Neut % 69.2 % 44 % - 76 % 04/14/23 14:45:00 Lymph % 18.5 % 15 % - 43 % 04/14/23 14:45:00 Valencia % 10.5 % 4.5 % - 10.5 % 04/14/23 14:45:00 Eos % 1 % 0 % - 6 % 04/14/23 14:45:00 Baso % 0.4 % 0 % - 2 % 04/14/23 14:45:00 Imm Gran 0.4 % ?? 04/14/23 14:45:00 Abs. Imm Gran 0 k/mm3 ?? 04/14/23 14:45:00 Sodium 141 mmol/L 133 mmol/L - 145 mmol/L 04/15/23 05:44:00 Sodium 142 mmol/L 133 mmol/L - 145 mmol/L 04/14/23 14:45:00 Potassium 3.8 mmol/L 3.6 mmol/L - 5.2 mmol/L 04/15/23 05:44:00 Potassium 4.1 mmol/L 3.6 mmol/L - 5.2 mmol/L 04/14/23 14:45:00 Chloride 106 mmol/L 98 mmol/L - 107 mmol/L 04/15/23 05:44:00 Chloride 108 mmol/L??High 98 mmol/L - 107 mmol/L 04/14/23 14:45:00 Bicarbonate Level 24 mmol/L 22 mmol/L - 29 mmol/L 04/15/23 05:44:00 Bicarbonate Level 27 mmol/L 22 mmol/L - 29 mmol/L 04/14/23 14:45:00 Anion Gap 11 4 ??- 17 04/15/23 05:44:00 Anion Gap 7 4 ??- 17 04/14/23 14:45:00 Glucose Level 88 mg/dL 70 mg/dL - 99 mg/dL 04/15/23 05:44:00 Glucose Level 85 mg/dL 70 mg/dL - 99 mg/dL 04/14/23 14:45:00 BUN 10 mg/dL 6 mg/dL - 20 mg/dL 04/15/23 05:44:00 BUN 11 mg/dL 6 mg/dL - 20 mg/dL 04/14/23 14:45:00 Creatinine-Blood 0.7 mg/dL 0.7 mg/dL - 1.2 mg/dL 04/15/23 05:44:00 Creatinine-Blood 0.7 mg/dL 0.7 mg/dL - 1.2 mg/dL 04/14/23 14:45:00 Estimated GFR Creatinine 104 ML/MIN/1.73 M2 ?? 04/15/23 05:44:00 Estimated GFR Creatinine 105 ML/MIN/1.73 M2 ?? 04/14/23 14:45:00 Calcium 8.9 mg/dL 8.6 mg/dL - 10.5 mg/dL 04/15/23 05:44:00 Calcium 8.8 mg/dL 8.6 mg/dL - 10.5 mg/dL 04/14/23 14:45:00 Lactate 0.9 mmol/L 0.5 mmol/L - 2.2 mmol/L 04/14/23 14:45:00 CK, Total 1928 units/L??High 0 units/L - 310 units/L 04/15/23 05:44:00 CK, Total 1311 units/L??High 0 units/L - 310 units/L 04/14/23 14:45:00 High Sensitivity Troponin (HSTnT) 14 ng/L ?? 04/14/23 17:24:00 High Sensitivity Troponin (HSTnT) 14 ng/L ?? 04/14/23 14:45:00 TSH 0.42 uIU/mL 0.4 uIU/mL - 4.2 uIU/mL 04/14/23 14:45:00 Ethanol, Serum or Plasma NONE DETECTED ?? 04/14/23 14:45:00 Salicylate Level <0.3??Low 3 mg/dL - 10 mg/dL 04/14/23 14:45:00 Barbiturate Screen, Urine NONE DETECTED ?? 04/14/23 16:19:00 Cannabinoid Screen, Urine NONE DETECTED ?? 04/14/23 16:19:00 Cocaine Metabolite Screen, Urine NONE DETECTED ?? 04/14/23 16:19:00 Benzodiazepine Screen, Urine POSITIVE Abnormal ?? 04/14/23 16:19:00 Amphetamine Screen, Urine NONE DETECTED ?? 04/14/23 16:19:00 Opiate Screen, Urine NONE DETECTED ?? 04/14/23 16:19:00 Acetaminophen Level <5??Low 15 mg/L - 30 mg/L 04/14/23 14:45:00 Influenza A PCR NEGATIVE ?? 04/14/23 19:07:00 Influenza B PCR NEGATIVE ?? 04/14/23 19:07:00 RSV PCR NEGATIVE ?? 04/14/23 19:07:00 COVID-19 PCR Specimen Source NASAL ?? 04/14/23 19:07:00 COVID-19 PCR Result NEGATIVE ?? 04/14/23 19:07:00 Appear/Color, Urine COLORLESS ?? 04/14/23 16:19:00 Specific [place], Urine 1.049??High 1.002 ??- 1.03 04/14/23 16:19:00 pH, Urine 6 5 ??- 8 04/14/23 16:19:00 Albumin, Urine NEGATIVE ?? 04/14/23 16:19:00 Glucose, Urine NEGATIVE ?? 04/14/23 16:19:00 Ketones, Urine NEGATIVE ?? 04/14/23 16:19:00 Bilirubin, Urine NEGATIVE ?? 04/14/23 16:19:00 Hemoglobin, Urine NEGATIVE ?? 04/14/23 16:19:00 Nitrite, Urine NEGATIVE ?? 04/14/23 16:19:00 Leukocyte, Urine NEGATIVE ?? 04/14/23 16:19:00 Urobilinogen NORMAL ?? 04/14/23 16:19:00 WBC's, Urine NONE SEEN 0 /HPF - 5 /HPF 04/14/23 16:19:00 RBC's, Urine NONE SEEN 0 /HPF - 3 /HPF 04/14/23 16:19:00 Squamous Epith <1 0 /HPF - 8 /HPF 04/14/23 16:19:00 Hold Urine Culture Testing available 48 hours from time of collection. ?? 04/14/23 16:19:00 ? * Louis Madrid DO: PERFORM Event Display: Consultation Note Authored Date: [id number] Attending Physician Attestation: I have seen and evaluated this patient??on the date of service 04/15/23 and discussed the case and its management??with??the resident physician, Dr. Pack??as documented. ??I agree with the assessment and plan as documented above.? In brief, this is a 57-year-old gentleman with past psychiatric history significant for depression??and??probable suicide attempts??December 2022, but no known prior inpatient psychiatric hospitalizations, with medical history most??notable for??chronic back pain??secondary to??spinal stenosis status po st??L4-L5 and L5-S1 oblique lateral lumbar interbody fusion??surgery,??alcohol,??benzodiazepine,??and opioid use disorder,??who initially presented to [facility] on??04/14/2023 for evaluation of altered mental status and collateral reports concerning for possible suicide attempt s/p toxic ingestion of illicitly purchased prescription medications.?? Initial psychiatric evaluation??is concerning for??a rather??poor historian,??greatly minimizing recent depressive mood, feelings of hopelessness and helplessness, suicidality,??and psychosocial stressors??(marital stressors,??interpersonal conflict with family, chronic pain).?? Collateral report??from the patient's daughter??had been quite concerning,??indicating??recent suicidality, disclosing??potential imminent harm to self??tovarious family members.?? A recent??ED visit??from just a few months prior (12/2022)??was also concerning to family for potential suicide attempt status post??toxic ingestion??of benzodiazepine medications, but the patient was discharged without crisis evaluation??and??resources to community mentalhealth care providers.?? At this point in time, the patient is not currently medically cleared.?? He is??restless, irritable, and advocating for discharge??from the hospital despite not??yet receiving any medical clearance??from the hospitalist service.?? He??did not demonstrate the capacity??to refuse??treatments as??deemed medically necessary by the primary team. ??The patient may not leave [facility] psychiatry clearance. ??There are numerous risk factors for suicide including??ongoing depression, suicidality,??recent suicide attempt,??access to??various medications??with lethal potential,??ongoing psychosocial stressors,??and lack of??community??mental health care providers??which putsthe patient at high acute/imminent??risk of harm to self if he were to be discharged. He appears [place] a danger to himself by virtue of acute suicidality and impaired judgment secondary to underlyingpsychiatric illness, thus meeting criteria??for emergency restraint??and/or??hospitalization under M.G.L.?? 123, Section 12 at this time.?Please page [phone]??once the patient is medically cleared so that he may be referred??to the [facility] crisis service??for initiation of bed search for inpatient psychiatric hospitalization for safety and stabilization. ?? Louis Madrid D.O.?? Risk Adjustment Specialist, Emergency Psychiatry Services Division of Consultation-Liaison Psychiatry Department of Psychiatry [facility] ? Note * Na Reyes RN: PERFORM Event Display: Discharge/Transfer Note Hospital Authored Date: [id number] Nursing Discharge Note Entered On: 04/20/2023 9:35 EST Performed On: 04/20/2023 9:33 EST by Na Reyes RN Nursing Discharge Note 2 Discharge Time : 04/20/2023 9:15 EST Discharge Level of Care at Discharge : assisted facility Patient Left Unit Via : Ambulance Patient Accompanied Off Unit with : Ambulance/Chair Van Personnel Handover Given to Transport Personnel : Yes DC Instructions Provided & Signed by Pt : No Patient Understands D/C Instructions : Yes Patient Instructions Discharge Signed : No Instructions for Discharge Comments : pt d/c to rehab Discharge Comments : no iv access on patient Did Pt have Specialty Bed or Wound Vac : No Amy FREEMAN, Na - 04/20/2023 9:33 EST * Alberta Cantrell MD: PERFORM Event Display: Discharge/Transfer Note Hospital Authored Date: Patient: ??GAURAV MCGHEE ? Age:??57 Years?Sex:??Male?:??1965?? Patient Information Discharge Location: Primary Care Physician: Claude Ho Admit Date/Time: 04/14/23 18:17 Discharge Disposition Discharge Disposition: Intermediate Facility/Rehab Discharge Diagnosis Benzodiazepine overdose (T42.4X1A) Slurred speech (R47.81) Altered mental status (R41.82) HTN (hypertension) (I10) HLD (hyperlipidemia) (E78.5) Suicidal ideation (R45.851) Chronic pain (G89.29) Spinal stenosis (M48.00) Rhabdomyolysis (M62.82) Weakness of right leg (R29.898) Benzodiazepine withdrawal seizure ?? _ Discharge Medications Acetaminophen (acetaminophen 325 mg oral tablet)?650?Milligram?By Mouth?Every 4 hours?as needed?Temperature Greater than 100.5?Pain , Mild Albuterol (ProAir HFA 90 mcg/inh inhalation aerosol with adapter)?2?puff(s)?Inhalation?Every 6 hours?as needed?Cough Atorvastatin (atorvastatin 80 mg oral tablet)?1?tab(s)?80?Milligram?By Mouth?Daily Celecoxib (celecoxib 200 mg oral capsule)?1?capsule?200?Milligram?By Mouth?2 times a day Fluticasone-Salmeterol (Advair Diskus 100 mcg-50 mcg inhalation powder)?1?inhalation?Inhalation?2 times a day Gabapentin (gabapentin 300 mg oral capsule)?300?Milligram?By Mouth?3 times a day HydrOXYzine (hydrOXYzine pamoate 50 mg oral capsule)?50?Milligram?By Mouth?Every 6 hours?as needed?Anxiety Lisinopril (lisinopril 10 mg oral tablet)?10?Milligram?1?tablet?By Mouth?Daily Lorazepam (Ativan 1 mg oral tablet)?See Instructions?1 mg By Mouth 2 times a day for 2 days then 1mg once a day for 2 days then stop. Multivitamin?1?tab(s)?By Mouth?Daily Omeprazole (omeprazole 40 mg oral enteric coated capsule)?1?capsule?40?Milligram?By Mouth?Daily Ropinirole (rOPINIRole 0.25 mg oral tablet)?TAKE 4 TABLETS BY MOUTH AT BEDTIME Tramadol (traMADol 50 mg oral tablet)?50?Milligram?By Mouth?Every 8 hours?as needed?Pain , Moderate Trazodone (traZODone 50 mg oral tablet)?50?Milligram?1?tablet?By Mouth?Daily at bedtime ? Medications Started Ativan taper Medications Discontinued none Doses Changed none PCP Follow-Up/Heads-Up ?? Please continue ativan taper ?? Future Appointments Monday 11:20 AM EST ?? With: Cecilio Astorga DO Where[facility] [address] [place] [id number]- Status: Pending Hospital Course Gaurav Mcghee is a 57-year-old man with a past medical history significant for hypertension, L4-L5 and L5-S1 OLIF, chronic pain and peripheral neuropath who was brought to the hospital for evaluation of altered mental status in the setting of possible overdose and was admitted for altered mental status and rhabdomyolysis. The rhabdomyolysis is resolving. The patient is being titrated off of benzodiazepines because of seizure activity presumed from withdrawal on 04/16. The patient has no hx of withdrawal related seizures. ? Suicidal ideation (R45.851): ??Patient's daughter stated over the past month patient has had been endorsing suicidal ideations frequently. She reports him constantly saying he is going to overdose on medications. She also statesthat he has been buying tramadol, gabapentin and Xanax online. ??Seen by psych, patient meets criteria for inpatient psychiatric hospitalization for safety and stabilization. Patient may NOT leave AMA. Continue current medications? Benzodiazepine overdose (T42.4X1A): ??Patient denies that this was as an attempted suicide. States that he uses the medications to sleep but that he either took too many or accidently took something else Patient also had a seizure while in the hospital, likely due to benzodiazepine withdrawal. Continue taper - Lorazepam 1mg twice a day for 2 days, then 1mg once a day for 2 days then stop ? Chronic pain (G89.29): ??Neuropathy (G60.9): Spinal stenosis (M48.00): ??Patient s/p L4-L5 and L5-S1 OLIF. reports first month post surgery he felt well, but since he hashad back pain and neuropathy in his feet which he manages with Gabapentin ??Last spine MRI November 2022. Patient of Dr. Ortiz. Patient was scheduled for nerve conduction study to decide on surgical option. ??No focal deficits to warrant inpatient neurosurgery consult - Continue Gabapentin 300 mg TID ??- Follow up with Dr. Ortiz as an outpatient ? Chronic, Stable, Resolved Conditions: Rhabdomyolysis (M62.82): Resolving. Slurred speech (R47.81): Resolved Altered mental status (R41.82): Resolved HTN (hypertension) (I10): Continue home meds ? Objective Vital Signs?? Temperature: 98.2 DegF (04/20/23 07:09:00) Temperature Route: Oral (04/20/23 07:09:00) Pulse Rate: 66 bpm (04/20/23 07:09:00) Respiratory Rate: 20 br/min (04/20/23 08:02:00) Systolic Blood Pressure:??148 mm Hg??High (04/20/23 07:09:00) Diastolic Blood Pressure:??86 mm Hg??High (04/20/23 07:09:00) Blood pressure sites: Arm, right (04/20/23 07:09:00) Mean Arterial Pressure: 107 mm Hg (04/20/23 07:09:00) Pulse Pressure: 62 mm Hg (04/20/23 07:09:00) Oxygen Saturation: 99 % (04/20/23 07:09:00) Mode of Delivery (Oxygen): Room air (04/20/23 07:09:00) Early Warning Score: 0 (04/20/23 08:06:54) ? . Physical Exam General:??No acute distress, AAOx3. HEENT:??Atruamatic/normocephalic Cardio:??Regular rate Respiratory:??CTA Abdomen:??Soft, NT, nondistended, Extremities:??No peripheral cyanosis or edema. Skin:??No rashes or hematomas appreciated. Neuro:??No focal deficits, normal gait psych: denies SI today, normal affect Follow-Up Appointments Added Follow Up ?Time Frame ?Comments Claude Ho Results Discharge Labs BLOOD COUNT & DIFF WBC 5.9 k/mm3 ()?? 04/15/2023 05:44 RBC 4.69 m/mm3 (Low)?? 04/15/2023 05:44 Hgb 13.9 Gm/dL ()?? 04/15/2023 05:44 Hct 41.3 % ()?? 04/15/2023 05:44 MCV 88.1 femtoliters ()?? 04/15/2023 05:44 MCH 29.6 pg ()?? 04/15/2023 05:44 MCHC 33.7 g/dL ()?? 04/15/2023 05:44 Platelet Count 173 k/mm3 ()?? 04/15/2023 05:44 RDW-SD 42.5 femtoliters ()?? 04/15/2023 05:44 MPV 10.2 femtoliters ()?? 04/15/2023 05:44 Nucleated RBC (Automated) 0.0 #/100 WBC'S ()?? 04/15/2023 05:44 Abs. NRBC 0.0 k/mm3 ()?? 04/15/2023 05:44 Abs. Neut 5.4 k/mm3 ()?? 04/14/2023 14:45 Abs. Lymph 1.4 k/mm3 ()?? 04/14/2023 14:45 Abs. Valencia 0.8 k/mm3 ()?? 04/14/2023 14:45 Abs. Eo 0.1 k/mm3 ()?? 04/14/2023 14:45 Abs. Baso 0.0 k/mm3 ()?? 04/14/2023 14:45 Neut % 69.2 % ()?? 04/14/2023 14:45 Lymph % 18.5 % ()?? 04/14/2023 14:45 Valencia % 10.5 % ()?? 04/14/2023 14:45 Eos % 1.0 % ()?? 04/14/2023 14:45 Baso % 0.4 % ()?? 04/14/2023 14:45 Imm Gran 0.4 % ()?? 04/14/2023 14:45 Abs. Imm Gran 0.0 k/mm3 ()?? 04/14/2023 14:45 ?? CARDIAC CK, Total 492 units/L (High)?? 04/17/2023 00:31 High Sensitivity Troponin (HSTnT) 14 ng/L ()?? 04/14/2023 17:24 ?? CHEM GENERAL Sodium 141 mmol/L ()?? 04/15/2023 05:44 Potassium 3.8 mmol/L ()?? 04/15/2023 05:44 Chloride 106 mmol/L ()?? 04/15/2023 05:44 Bicarbonate Level 24 mmol/L ()?? 04/15/2023 05:44 Anion Gap 11 ()?? 04/15/2023 05:44 Glucose Level 88 mg/dL ()?? 04/15/2023 05:44 BUN 10 mg/dL ()?? 04/15/2023 05:44 Creatinine-Blood 0.7 mg/dL ()?? 04/15/2023 05:44 Estimated GFR Creatinine 104 ML/MIN/1.73 M2 ()?? 04/15/2023 05:44 Calcium 8.9 mg/dL ()?? 04/15/2023 05:44 Lactate 0.9 mmol/L ()?? 04/14/2023 14:45 ? ENDOCRINE/TUMOR MARKER TSH 0.42 uIU/mL ()?? 04/14/2023 14:45 ? HEME OTHER Hold Lavender Top SPECIMEN DISCARDED AFTER 24 HOURS. ()?? 04/17/2023 00:31 ? MISC. CHEMISTRY Hold Gel Top SPECIMEN DISCARDED AFTER 1 WEEK ()?? 04/16/2023 10:01 ? TOXICOLOGY/TDM Ethanol, Serum or Plasma NONE DETECTED mg/dL ()?? 04/14/2023 14:45 Salicylate Level <0.3 mg/dL (Low)?? 04/14/2023 14:45 Barbiturate Screen, Urine NONE DETECTED ()?? 04/14/2023 16:19 Cannabinoid Screen, Urine NONE DETECTED ()?? 04/14/2023 16:19 Cocaine Metabolite Screen, Urine NONE DETECTED ()?? 04/14/2023 16:19 Benzodiazepine Screen, Urine POSITIVE (Abnormal)?? 04/14/2023 16:19 Amphetamine Screen, Urine NONE DETECTED ()?? 04/14/2023 16:19 Opiate Screen, Urine NONE DETECTED ()?? 04/14/2023 16:19 Acetaminophen Level <5 mg/L (Low)?? 04/14/2023 14:45 ? UA/URINALYSIS Appear/Color, Urine COLORLESS ()?? 04/14/2023 16:19 Specific Clayton, Urine 1.049 (High)?? 04/14/2023 16:19 pH, Urine 6.0 ()?? 04/14/2023 16:19 Albumin, Urine NEGATIVE ()?? 04/14/2023 16:19 Glucose, Urine NEGATIVE ()?? 04/14/2023 16:19 Ketones, Urine NEGATIVE ()?? 04/14/2023 16:19 Bilirubin, Urine NEGATIVE ()?? 04/14/2023 16:19 Hemoglobin, Urine NEGATIVE ()?? 04/14/2023 16:19 Nitrite, Urine NEGATIVE ()?? 04/14/2023 16:19 Leukocyte, Urine NEGATIVE ()?? 04/14/2023 16:19 Urobilinogen NORMAL mg/dL ()?? 04/14/2023 16:19 WBC's, Urine NONE SEEN /HPF ()?? 04/14/2023 16:19 RBC's, Urine NONE SEEN /HPF ()?? 04/14/2023 16:19 Squamous Epith <1 /HPF ()?? 04/14/2023 16:19 Hold Urine Culture Testing available 48 hours from time of collection. ()?? 04/14/2023 16:19 ? URINE OTHER Est Creatinine Clearance 105.59 mL/min ()?? 04/15/2023 18:33 ? VIROLOGY Influenza A PCR NEGATIVE ()?? 04/14/2023 19:07 Influenza B PCR NEGATIVE ()?? 04/14/2023 19:07 RSV PCR NEGATIVE ()?? 04/14/2023 19:07 COVID-19 PCR Specimen Source NASAL ()?? 04/14/2023 19:07 COVID-19 PCR Result NEGATIVE ()?? 04/14/2023 19:07 ? Imaging(s) ?CT Head/Brain W/O Contrast ?? 04/14/2023 13:57??by Hao Timmons MD ?CT Angio Neck ?? 04/14/2023 13:57??by Leobardo Altman MD ?CT Angio Head ?? 04/14/2023 13:57??by Agapito SHERWOOD, Leobardo ?CT Cervical Spine W/O Contrast ?? 04/14/2023 13:57??by Iain SHERWOOD, Hao ? IMPRESSION: No acute abnormality of the head or cervical spine. ?Chest Portable ?? 04/14/2023 15:11??by Kendrick SHERWOOD, Aman W ? IMPRESSION: No acute abnormality. ?ECG 12-Lead ?? 04/14/2023 14:18??by Tiffany SHERWOOD, Nae [place] ? [id number] Ventricular Rate: 88 BPM Atrial Rate: 88 BPM P-R Interval: 178 ms QRS Duration: 78 ms Q-T Interval: 348 ms QTC Calculation(Bazett): 421 ms P [place]: 81 degrees R [place]: 61 degrees T [place]: 65 degrees Normal sinus rhythm Normal ECG ? Consults(s) ?Consultation Note ?? 04/17/2023 09:29??by Fe SHERWOOD, Yrn L ? 57 y/o LH M with PMH HTN, L4-L5, L5-S1 OLIF, peripheral neuropathy, chronic pain, difficulty sleeping presented to [facility] 04/14/23 with altered mental status, reported to take too many sleeping pills , and rhabdo (1300K) who neurology is seeing for seizure ? benzo withdrawal. CTH nonacute, CTA h/n unremarkable. ?? dx: suspect this is benzo withdrawal seizure. he was admitted 04/14, did not receive ativan then on 04/16 at ~ 2030 had a witnessed shaking event with urinary incontinence, tachycardia, and hypertension ?? Rec: ??-agree with benzo taper to avoid withdrawal seizures ??-would not treat with AEDs ??-no need for further epilepsy work up ??-if he continues to have seizures will reconsider seizure work up ?? Thank you. No additional recommendations. Signing off. Please call with questions. ??d/w Dr. Miramontes ?Consultation Note ?? 04/15/2023 09:06??by Louis Madrid DO ? Gaurav Mcghee is a 57yo male w/ PMHx of HTN, HLD, asthma, carpal tunnel syndrome, spinal stenosis s/p L4-L5 and L5-S1 OLIF, chronic pain, peripheral neuropathy, and past psychiatric history of depression who presented to the [facility] ED on 04/14 with altered mental status, raising concern for toxic ingestion. In the ED, he was afebrile and hemodynamically stable with good oxygen saturation. Labs and imaging were largely unremarkable apart from a CK of 1311 and UDS positive for benzodiazepines. He was given IV fluids for rhabdomyolysis and admitted for further evaluation. ED physician spoke to Gaurav's daughter, Hayley. She stated that he has been making suicidal statements over the past month, expressing desire to overdose on medication. Psychiatry was consulted due to concern for suicide attempt in the setting of ongoing suicidal ideation. ?? 04/15: On initial assessment, Gaurav confirms that he took 6-10mg Ativan in an attempt to sleep; he adamantly denies that it was a suicide attempt. While he admits to some recent depression and passive wish, mostly secondary to chronic back pain, he denies any recent suicidal ideation, intent or plan. Conversely, his daughter, Hayley, expresses significant concern about him and reports thathe has been making frequent suicidal statements to all of his five children. She notes that these statements have been specific with expressed plan to overdose on medications. She describes a significant history of alcoholism, benzodiazepine dependence and opiate dependence. She feels that he needsdual substance use and mental health treatment. She also notes that this is his second overdose, with the first one being in December of earlier this year. She strongly advocates for her father to go inpatient, noting that the whole family is concerned about him. Given recent overdose, history of prioroverdose, family's report of expressed suicidal ideation, ongoing substance use issues, and impaired insight/judgement (as evidenced by purchasing controlled substances online, minimization of recentevents/suicidality), Gaurav poses acute risk of harm to himself and meets criteria for inpatient psychiatric hospitalization. Regardless of whether or not Gaurav is voluntary for IPLOC, he appears [place] a danger to himself by virtue of acute suicidality and impaired judgment secondary to underlyingpsychiatric illness, thus meeting criteria for emergency restraint and/or hospitalization under [place] [address], Section 12 at this time. ?? 04/17: Pt continues to present guarded, reports recent depression and SI but severely downplays. Has some insight into his Ativan abuse but unclear if he is ready to engage in treatment. Given sigfnicant concerns noted above, will recommend inpatient psych admission once medically cleared. ? Psychiatric Diagnoses: ??Major depressive disorder, recurrent episode, severe, without psychotic features ??R/O Substance-induced depressive disorder ??Benzodiazepine Use Disorder, severe ??Alcohol Use Disorder, by history ??Opioid use disorder, severe, dependence, previously on maintenance therapy ??Suicidal ideation s/p attempt via toxic ingestion / drug overdose ??Query acute benzodiazepine withdrawal ??Chronic back pain ? Recommendations: ??-Patient meets criteria for inpatient psychiatric hospitalization for safety and stabilization. Patient may NOT leave AMA. ??-Please reach out to pager [phone] once medically cleared so the psychiatry consultation service may refer this patient to the crisis disposition team for initiation of bed search for IPLOC. ??-Continue constant intel recruiter and suicide precautions. ??-Given likely benzodiazepine dependence, in agreement with Ativan PRNs as clinically indicated. ??-Continue home sertraline 100 mg PO daily, gabapentin 800mg PO four times daily (hold for excess sedation, AMS). ??-May discontinue BuSpar as patient hasn't found this helpful and to limit polypharmacy. ??-Can utilize Vistaril 50mg Q6H PRN anxiety and Trazodone 50mg daily at bedtime PRN insomnia. ??-If necessary, can utilize Zyprexa 5 mg PO/IV/IM Q6H PRN severe agitation. The preference is for PO medications, but if the patient refuses the oral medications and there is sufficient acute safetyconcern, can judiciously utilize IM equivalents for severe agitation. ? 35??minutes spent on discharge * Amy FREEMAN, Na: PERFORM Event Display: Patient Education/Instruction Authored Date: [id number] Inpatient Adult Discharge Instructions [address] [address] Name: GAURAV MCGHEE : 1965 Visit: 04/14/2023 18:17:00 Current Date: 04/20/2023 08:44 Account: [id number] Inpatient Adult Discharge Instructions We would like [...] and their families. Surveys are administered by [employer]. ?? If further treatment with your primary care physician or another doctor is recommended, it is important for you to keep the appointment. Call your primary care physician or return to the Emergency Department immediately if your condition worsens, fails to improve, or new symptoms develop. If you need to find a doctor, you can call [facility] [employer] Link for a referral at [phone] or toll free at [phone] ([phone]) or log in to [email or web address].. ?? [facility], in keeping with [facility] guidance, no longer requires face masks for staff, patientsor visitors in most situations. Similiar to time spent indoors at other locations, there is the chance that you were exposed to repiratory viruses during your time with us (such as flu or COVID-19). If you develop symptoms concerning for a viral respiratory infection, please seek testing (and treatment if indicated) from your medical provider or home test kit. ?? You can view and manage your care through the patient portal or by using a health care manjinder of your choosing. [employer] is a website that allows you to securely view your medical information including your hospital discharge summary, office visit summaries, medications and follow-up visits. You can also request appointments, renew medications, and request access to your medical information using a health care manjinder of your choosing, or just ask a question. You can enroll at [email or web address] or register during your next office visit. You have been discharged from [facility], Patient Care Unit: S3. If you have any questions regarding these instructions after you leave, please call us and we will be happy to assist you. [facility] Your Care Team Attending Physician Tamia SHERWOOD, Alberta Consulting Providers Jesús SHERWOOD, Lindsay Discharging Providers Alberta Cantrell MD Reason for Admission General medical Your Diagnosis Benzodiazepine overdose Weakness of right leg Slurred speech Altered mental status HTN (hypertension) HLD (hyperlipidemia) Suicidal ideation Chronic pain Spinal stenosis Rhabdomyolysis Tests Performed Below is a partial list of the tests performed during your hospitalization. You may have had other tests and procedures not included in this list. Please discuss all test results with your provider. Acetaminophen Level Amphetamine Urine Screen Aspirin Level Barbiturate Urine Screen Basic Metabolic Panel Benzodiazepine Urine Screen Cannabinoid Urine Screen CBC CBC w/ Differential CK Total Only Cocaine Urine Screen COVID-19, RSV, and Flu A/B, Rapid PCR CPK Total Only Ethanol Level High??Sensitivity??Troponin T HOLD GEL TUBE HOLD LAVENDER TUBE Lactate Level Opiate Screen Urine Troponin T, High Sensitivity TSH with T4 Reflex (Adults Only) Urinalysis w/hold for Urine Culture CT Angio Head CT Angio Neck CT Cervical Spine W/O Contrast CT Head/Brain W/O Contrast CXR Portable Primary Care Provider Claude Ho Advance Directive Health Care Proxy on File Yes - Health Care Proxy Discharge Vitals Temperature: 98.2 DegF Height: 178 cm Pulse Rate: 66 bpm Weight: 65.7 kg Respiratory Rate: 20 br/min Body Mass Index: 20.74 kg/m2 Systolic Blood Pressure:??148 mm Hg??High Body surface area: 1.8 Diastolic Blood Pressure:??86 mm Hg??High ?? Oxygen Saturation: 99 % ?? Studies Pending All tests and labs ordered during this hospital stay have been completed unless listed below. Please discuss all pending results with your provider listed above in these instructions. ?? Hold Lavender Tube (BB) What to do next Instructions From Your Doctor Discharge Orders Scheduled Follow-Up Appointments Monday 11:20 AM EST ?? With: Cecilio Astorga DO Where[facility] [address] [place] [id number]- Status: Pending You Need to Schedule the Following Appointments Follow Up with??Claude Ho Where: [facility] [place] [id number]- Discharge Medications GAURAV MCGHEE :1965 Visit Date:04/14/2023 Medications: Please continue your medications until treatment is completed or stopped by your provider. Medications not listed below should be discontinued. Discuss any questions related to medications with your provider. What How Much When Instructions Next Dose New Acetaminophen (acetaminophen 325 mg oral tablet) 650 Milligram Oral Every 4 hours as needed for Pain , Mild Temperature Greater than 100.5 ?? as needed New HydrOXYzine (hydrOXYzine pamoate 50 mg oral capsule) 50 Milligram Oral Every 6 hours as needed for Anxiety as needed New Lorazepam (Ativan 1 mg oral tablet) See instructions 1 mg By Mouth 2 times a day for 2 days then 1mg once a day for 2 days then stop. ?? Printed Prescription 04/20 in pm New Tramadol (traMADol 50 mg oral tablet) 50 Milligram Oral Every 8 hours as needed for Pain , Moderate as needed Changed Gabapentin (gabapentin 300 mg oral capsule) 300 Milligram Oral 3 times a day 04/20 at 3pm Unchanged Albuterol (ProAir HFA 90 mcg/ inh inhalation aerosol with adapter) 2 puff(s) Inhalation Every 6 hours as needed for Cough as needed Unchanged Atorvastatin (atorvastatin 80 mg oral tablet) 1 tab(s) Oral Daily 04/20 in pm Unchanged Celecoxib (celecoxib 200 mg oral capsule) 1 capsule Oral Twice a day 04/20 in pm Unchanged Fluticasone-Salmeterol (Advair Diskus 100 mcg-50 mcg inhalation powder) 1 inhalation Inhalation Twice a day 04/20 in pm Unchanged Lisinopril (lisinopril 10 mg oral tablet) 1 tab(s) Oral Daily 04/21 in am Unchanged Multivitamin 1 tab(s) Oral Daily 04/21 in am Unchanged Omeprazole (omeprazole 40 mg oral enteric coated capsule) 1 capsule Oral Daily 04/21 in am Unchanged Ropinirole (rOPINIRole 0.25 mg oral tablet) TAKE 4 TABLETS BY MOUTH AT BEDTIME ?? 04/20 at bedtime Unchanged Trazodone (traZODone 50 mg oral tablet) 1 tab(s) Oral Daily at Bedtime 04/20 at bedtime ?? What How Much When Comments Stop Taking Methadone 70 Milligram Oral Daily Test Results Below is a partial list of the most recent Laboratory test results done prior to this discharge. You may have had other tests and procedures not included in this list. Please discuss all test resultswith your provider. Est Creatinine Clearance - 105.59 mL/min (04/15/2023) Acetaminophen Level (04/14/2023) ? ?Acetaminophen Level - <5 mg/L Amphetamine Urine Screen (04/14/2023) ???Amphetamine Screen, Urine - NONE DETECTED Aspirin Level (04/14/2023) ? ?Salicylate Level - <0.3 mg/dL Barbiturate Urine Screen (04/14/2023) ???Barbiturate Screen, Urine - NONE DETECTED Basic Metabolic Panel (04/15/2023) ???Sodium - 141 mmol/L???Potassium - 3.8 mmol/L???Chloride - 106 mmol/L???Bicarbonate Level - 24 mmol/L???Anion Gap - 11???Glucose Level - 88 mg/dL???BUN - 10 mg/dL???Creatinine-Blood - 0.7 mg/dL???Estimated GFR Creatinine - 104 ML/MIN/1.73 M2???Calcium - 8.9 mg/dL Benzodiazepine Urine Screen (04/14/2023) ???Benzodiazepine Screen, Urine - POSITIVE Cannabinoid Urine Screen (04/14/2023) ???Cannabinoid Screen, Urine - NONE DETECTED CBC (04/15/2023) ???WBC - 5.9 k/mm3???RBC - 4.69 m/mm3???Hgb - 13.9 Gm/dL???Hct - 41.3 %???MCV - 88.1 femtoliters???MCH - 29.6 pg???MCHC - 33.7 g/dL???Platelet Count - 173 k/mm3???RDW-SD - 42.5 femtoliters???MPV - 10.2 femtoliters???Nucleated RBC (Automated) - 0.0 #/100 WBC'S???Abs. NRBC - 0.0 k/mm3 CBC w/ Differential (04/14/2023) ???WBC - 7.7 k/mm3???RBC - 4.60 m/mm3???Hgb - 13.7 Gm/dL???Hct - 40.3 %???MCV - 87.6 femtoliters???MCH - 29.8 pg???MCHC - 34.0 g/dL???Platelet Count - 174 k/mm3???RDW-SD - 42.2 femtoliters???MPV - 10.9 femtoliters???Nucleated RBC (Automated) - 0.0 #/100 WBC'S???Abs. NRBC - 0.0 k/mm3???Abs. Neut - 5.4 k/mm3???Abs. Lymph - 1.4 k/mm3???Abs. Valencia - 0.8 k/mm3???Abs. Eo - 0.1 k/mm3???Abs. Baso - 0.0 k/mm3???Neut % - 69.2 %???Lymph % - 18.5 %???Valencia % - 10.5 %???Eos % - 1.0 %???Baso % - 0.4 %???Imm Gran - 0.4 %???Abs. Imm Gran - 0.0 k/mm3 CK Total Only (04/15/2023) ???CK, Total - 1928 units/L Cocaine Urine Screen (04/14/2023) ???Cocaine Metabolite Screen, Urine - NONE DETECTED COVID-19, RSV, and Flu A/B, Rapid PCR (04/14/2023) ???Influenza A PCR - NEGATIVE???Influenza B PCR - NEGATIVE???RSV PCR - NEGATIVE???COVID-19 PCR Specimen Source - NASAL???COVID-19 PCR Result - NEGATIVE CPK Total Only (04/17/2023) ???CK, Total - 492 units/L Ethanol Level (04/14/2023) ???Ethanol, Serum or Plasma - NONE DETECTED High??Sensitivity??Troponin T (04/14/2023) ???High Sensitivity Troponin (HSTnT) - 14 ng/L HOLD GEL TUBE (04/16/2023) ???Hold Gel Top - SPECIMEN DISCARDED AFTER 1 WEEK HOLD LAVENDER TUBE (04/17/2023) ???Hold Lavender Top - SPECIMEN DISCARDED AFTER 24 HOURS. Lactate Level (04/14/2023) ???Lactate - 0.9 mmol/L Opiate Screen Urine (04/14/2023) ???Opiate Screen, Urine - NONE DETECTED Troponin T, High Sensitivity (04/14/2023) ???High Sensitivity Troponin (HSTnT) - 14 ng/L TSH with T4 Reflex (Adults Only) (04/14/2023) ???TSH - 0.42 uIU/mL Urinalysis w/hold for Urine Culture (04/14/2023) ???Appear/Color, Urine - COLORLESS???Specific Clayton, Urine - 1.049???pH, Urine - 6.0???Albumin, Urine - NEGATIVE???Glucose, Urine - NEGATIVE???Ketones, Urine - NEGATIVE???Bilirubin, Urine - NEGATIVE???Hemoglobin, Urine - NEGATIVE???Nitrite, Urine - NEGATIVE???Leukocyte, Urine - NEGATIVE???Urobilin ogen - NORMAL? ?WBC's, Urine - NONE SEEN? ?RBC's, Urine - NONE SEEN? ?Squamous Epith - <1 /HPF? ?Hold Urine Culture - Testing available 48 hours from time of collection. Allergies (NKA means No Known Allergies) NKA Problems Active Problems??(15) Altered mental status?? Asthma?? Carpal tunnel syndrome?? Chronic pain?? HLD (hyperlipidemia)?? HTN (hypertension)?? Idiopathic neuropathy?? Lumbar facet joint pain?? Lumbar radiculitis?? Rhabdomyolysis?? Sacroiliac joint dysfunction of right side?? Spinal stenosis?? Suicidal ideation?? Withdrawal from benzodiazepine?? Withdrawal from opioids?? Education Materials Below is the list of Educational Leaflet Providered with your Discharge Instructions. Valuables and Belongings I fully understand and agree that [facility] accepts no responsibility for all my personal [...] to send valuables and belongings home. ?? Safe envelope number: [id number] Review of Valuable and Belonging List: With patient Date for Pt to Sign Valuables/Belongings: 04/20/23 07:09:00 ?? Other Discharge Information ? Pulmonary Rehab Status?? Pulmonary Rehab Discharge Status?? Respiratory Rate: 20 br/min ? Common Emergency Awareness Tips IS [...] are strongly encouraged to quit. Please call [facility] [employer] Link at [phone] or [phone] ([phone]) or log in to [email or web address] for referrals to smoking cessation programs. ?? 052 Suicide & Crisis Lifeline is available 02/01 if you or someone you know needs to find a reason to keep living. By calling 773 you'll be connected to a skilled, trained counselor at a crisis center in your area. INPATIENT DISCHARGE INSTRUCTIONS SIGNATURE PAGE GAURAV MCGHEE Location:[facility] Registration Date and Time:04/14/2023 18:17 EDT Primary Care Physician: Claude Ho, Attending Physician: Alberta Cantrell MD, I GAURAV MCGHEE, have received the above patient education materials/instructions and have verbalized understanding. If ambulance or transport services are being used I further acknowledge beinggiven a choice of service. ?? If you need to contact me, please call me at this number: . Patient/Ward Service Supervisor Name: Patient/Ward Service Supervisor Signature: Relationship to Patient: Witness Name/Signature: Date: Patient Care team information Care Team Personnel Name: Di Irene RN Position: S RN Member Role: Primary Care Nurse Name: Sunday Frank RN Position: S RN Member Role: Primary Care Nurse Name: Noemi Rivas RN Position: S RN Member Role: Primary Care Nurse Name: Franklin Xavier RN Position: S RN Member Role: Primary Care Nurse Name: Bijal Gracia RN Position: [facility] RN Member Role: Primary Care Nurse Name: Humaira Smith RN Position: [facility] RN Member Role: Primary Care Nurse Name: Cary Shell RN Position: [facility] RN Member Role: Primary Care Nurse Name: Shyann Trujillo Position: [facility] RN Member Role: Primary Care Nurse Name: Juan Manuel Garland RN Position: [facility] RN Member Role: Primary Care Nurse Name: Lindsey Smith RN Position: [facility] Hospital Network Control Supervisor Member Role: Primary Care Nurse Name: Chelsea Mendez RN Position: [facility] RN Member Role: Primary Care Nurse Name: Shelly Pendleton Position: [facility] Outreach Member Role: Lifetime Consulting Physician Name: Gracie Gilliland RN Position: [facility] RN Member Role: Primary Care Nurse Name: Gloria Jane RN Position: [facility] RN Member Role: Primary Care Nurse Name: Marian Brody RN Position: [facility] RN Member Role: Primary Care Nurse Name: Claude Ho Position: Reference Physician Member Role: PCP Address: Address: [address] [place] [id number] Name: *Thad MORENO Attending Position: [facility] ED Medicine MD Name: Christiane James Position: [facility] ED OA Charge Member Role: ED Associate Name: Padmini Montana RN Position: [facility] ED RN W/OE and Tasks Member Role: Patient Care Provider Name: Jeannette Oakley Position: [facility] ED TA [facility] Member Role: Patient Care Provider Care Team Related Persons Name: MOSES MCGHEE Address: home [address] [place] [id number] Name: LAURA MCGHEE Address: [address] [place] [address] Name: HAYLEY MCGHEE Address: home [address] [place] [address]
--- OUTSIDE RECORDS SUMMARY | 2024-01-31 07:44 | XMS_ITS | Continuity of Care Document ---
Author Organization [facility] Address [address] [place] [address]- Care Team Providers Care Grinder Set Up Operator Thread Name Role Phone Claude Ho Primary Care Physician Encounter [facility] [place] Date(s): 07/19/23 - 08/24/23 [facility] [address] [place] [address]- Attending Physician: Gianluca Ortiz MD Admitting Physician: Gianluca Ortiz MD Referring Physician: Gianluca Ortiz MD Allergies, Adverse Reactions, Alerts No Known Allergies Immunizations Given and Recorded Vaccine Date Status Refusal Reason tetanus/diphtheria/pertussis, acel(Tdap) 12/08/19 Given Medications Advair Diskus 100 mcg-50 mcg inhalation powder 1, inhalation, Inhalation, 2 times a day, Refills 0, Maintenance, 12/08/19 10:52:00 EDT Start Date: 12/08/19 Status: Ordered ARIPiprazole 2 mg oral tablet TAKE 1 TABLET BY MOUTH EVERY DAY Start Date: 08/24/23 Status: Ordered atorvastatin 80 mg oral tablet 1 tablet = 80 mg, By Mouth, Daily Start Date: 06/16/18 Status: Ordered BACLOFEN 10 MG TABLET BACLOFEN 10 MG TABLET, TAKE 1 TABLET BY MOUTH THREE TIMES A DAY Start Date: 08/24/23 Status: Ordered celecoxib 200 mg oral capsule 1 capsule = 200 mg, By Mouth, 2 times a day, 0 Refills, Maintenance, 01/24/23 14:09:00 EDT, Capsule, Partial fill upon patient request if the prescription is for a schedule II opioid drug. Start Date: 01/24/23 Status: Ordered dicyclomine 10 mg oral capsule TAKE 1 CAPSULE BY MOUTH 4 TIMES DAILY (BEFORE MEALS AND NIGHTLY). Start Date: 08/24/23 Status: Ordered gabapentin 300 mg oral capsule 300 mg, By Mouth, 3 times a day, Refills 0, Maintenance, 04/20/23 8:20:00 EST, Partial fill upon patient request if the prescription is for a schedule II opioid drug. Start Date: 04/20/23 Status: Ordered lisinopril 10 mg oral tablet 10 mg, 1, tablet, By Mouth, Daily Start Date: 06/16/18 Status: Ordered meloxicam 15 mg oral tablet TAKE 1 TABLET BY MOUTH DAILY NEEDED FOR PAIN FOR UP TO 180 DAYS. Start Date: 08/24/23 Status: Ordered omeprazole 40 mg oral enteric [...] hours, PRN Start Date: 06/16/18 Status: Ordered propranolol 40 mg oral tablet TAKE 1 TABLET BY MOUTH TWICE A DAY Start Date: 08/24/23 Status: Ordered rOPINIRole 0.25 mg oral tablet TAKE 4 TABLETS BY MOUTH AT BEDTIME Start Date: 08/24/23 Status: Ordered sertraline 100 mg oral tablet TAKE 1 TABLET BY MOUTH EVERY DAY Start Date: 08/24/23 Status: Ordered traZODone 50 mg oral tablet [...] (less than 100 in lifetime) entered on: 6/28/20 Sex Patient Care team information Care Team Personnel Name: Di Irene RN Position: [facility] RN Member Role: Primary Care Nurse Name: Noemi Rivas RN Position: [facility] RN Member Role: Primary Care Nurse Name: Franklin Xavier RN Position: [facility] RN Member Role: Primary Care Nurse Name: Bijal Gracia RN Position: [facility] RN Member Role: Primary Care Nurse Name: Humaira Smith RN Position: [facility] RN Member Role: Primary Care Nurse Name: Cary Shell RN Position: [facility] RN Member Role: Primary Care Nurse Name: Shyann Trujillo Position: [facility] RN Member Role: Primary Care Nurse Name: Juan Manuel Garland RN Position: [facility] RN Member Role: Primary Care Nurse Name: Lindsey Smith RN Position: [facility] Vacuum Metalizer Operator Member Role: Primary Care Nurse Name: Chelsea Mendez RN Position: [facility] RN Member Role: Primary Care Nurse Name: Shelly Pendleton Position: [facility] Outreach Member Role: Lifetime Consulting Physician Name: Gloria Jane RN Position: [facility] RN Member Role: Primary Care Nurse Name: Claude Ho Position: Reference Physician Member Role: PCP Address: Address: [address] [place] [address]- Care Team Related Persons Name: MOSES MCGHEE Address: home [address] [address] Name: LAURA MCGHEE Address: home [address] [place] [address] Name: HAYLEY MCGHEE Address: home [address] [place] [address]
--- OUTSIDE RECORDS SUMMARY | 2024-01-31 07:44 | XMS_ITS | Continuity of Care Document ---
Author Organization [facility] Address [address] [place] [address], [address] [place] [address]- Care Team Providers Care Communications Controller Name Role Phone Claude Ho Primary Care Physician Encounter [facility] Date(s): 12/27/22 - 01/26/23 [facility] [address] [place] [address], [address] [place], [place] [address] Allergies, Adverse Reactions, Alerts No Known Allergies [...] opioid drug. Start Date: 01/24/23 Status: Ordered lisinopril 10 mg oral tablet [...] AT BEDTIME Start Date: 01/24/23 Status: Ordered venlafaxine 37.5 mg oral capsule, [...] Team Personnel Name: Sunday Frank RN Position: [facility] RN Member Role: Primary Care Nurse Name: Noemi Rivas RN Position: [facility] RN Member Role: Primary Care Nurse Name: Humaira Smith RN Position: [facility] RN Member Role: Primary Care Nurse Name: Lindsey Smith RN Position: [facility] Hospital Cream Separator Operator Member Role: Primary Care Nurse Name: Chelsea Mendez RN Position: [facility] RN Member Role: Primary Care Nurse Name: Shelly Pendleton Position: [facility] Outreach Member Role: Lifetime Consulting Physician Name: Gracie Gilliland RN Position: [facility] RN Member Role: Primary Care Nurse Name: Claude Ho Position: Reference Physician Member Role: PCP Address: Address: [address] [place] [address]- Care Team Related Persons Name: MOSES MCGHEE Address: [address] Name: LAURA MCGHEE Address: home [address] [place] [address]
--- OUTSIDE RECORDS SUMMARY | 2024-01-31 07:44 | XMS_ITS | Continuity of Care Document ---
Author Organization [facility] Address [address] [place] [address], [address] [place] [address]- Care Team Providers Care Project Hire Name Role Phone Claude Ho Primary Care Physician Encounter [facility] [place] Date(s): 02/02/23 - 02/09/23 [facility] [address] [place] [address] Drive, [address] [place], [place] [address] Attending Physician: Gianluca Ortiz MD Referring Physician: Claude Ho Allergies, Adverse Reactions, Alerts No Known Allergies [...] opioid drug. Start Date: 02/02/23 Status: Ordered kerlex wrap for RLE wound care kerlex [...] 02/10/23 10:38:00 EDT, 01/31/23 10:38:00 EDT, Capsule, [id number], Partial fill upon patient request if the [...] joint dysfunction of right side Confirmed Active Vital Signs Most recent to oldest [Reference Range]: 1 Height 174 cm (02/02/23 1:35 PM) Weight 65.7 kg (02/02/23 1:35 PM) Body Mass Index [18.5-24.99 kg/m2] 21.7 kg/m2 (02/02/23 1:35 PM) Social History Social History Type Response Smoking Status Never (less than 100 in lifetime) entered on: 12/08/19 Sex Patient Care team information Care Team Personnel Name: Sunday Frank RN Position: [facility] RN Member Role: Primary Care Nurse Name: Noemi Rivas RN Position: [facility] RN Member Role: Primary Care Nurse Name: Humaira Smith RN Position: [facility] RN Member Role: Primary Care Nurse Name: Lindsey Smith RN Position: [facility] Hospital Film Loader Member Role: Primary Care Nurse Name: Chelsea Mendez RN Position: [facility] RN Member Role: Primary Care Nurse Name: Shelly Pendleton Position: [facility] Outreach Member Role: Lifetime Consulting Physician Name: Gracie Gilliland RN Position: [facility] RN Member Role: Primary Care Nurse Name: Claude Ho Position: Reference Physician Member Role: PCP Address: Address: [address] [place] [address] [facility] Care Team Related Persons Name: MOSES MCGHEE Address: [address] [place] [address] Name: LAURA MCGHEE Address: home [address] [place] [address] Name: HAYLEY MCGHEE Address: [place] [address]
--- OUTSIDE RECORDS SUMMARY | 2024-01-31 07:44 | XMS_ITS | Continuity of Care Document ---
Author Organization [facility] Address [address] [place] [address]- Care Team Providers Care Finish Sander Name Role Phone Claude Ho Primary Care Physician En[place] [facility] [place] Date(s): 03/04/23 - 04/09/23 [facility] [address] [place] [address] Attending Physician: Lionel Smart MD Admitting Physician: Lionel Smart MD Referring Physician: Claude Ho Allergies, Adverse [...] Team Personnel Name: Sunday Frank RN Position: [facility] RN Member Role: Primary Care Nurse Name: Noemi Rivas RN Position: [facility] RN Member Role: Primary Care Nurse Name: Humaira Smith RN Position: [facility] RN Member Role: Primary Care Nurse Name: Lindsey Smith RN Position: [facility] Hospital Jewelry Casting Model Maker Apprentice Member Role: Primary Care Nurse Name: Chelsea Mendez RN Position: [facility] RN Member Role: Primary Care Nurse Name: Shelly Pendleton Position: [facility] Outreach Member Role: Lifetime Consulting Physician Name: Gracie Gilliland RN Position: [facility] RN Member Role: Primary Care Nurse Name: Claude Ho Position: Reference Physician Member Role: PCP Address: Address: [address] [place] [address]- Care Team Related Persons Name: MOSES MCGHEE Address: home [address] [place] [address] Name: LAURA MCGHEE Address: [address] [place] [address] Name: HAYLEY MCGHEE Address: [place] [address]
--- OUTSIDE RECORDS SUMMARY | 2024-01-31 07:44 | XMS_ITS | Continuity of Care Document ---
Author Organization [facility] Address [address] [place] [address] genet, [address] [place] [address]- Care Team Providers Care Route Delivery Manager Name Role Phone Claude Ho Primary Care Physician [place] [facility] [place]23 - 04/06/23 [facility] [address] [place] [address] Drive, [address] [place], [place] [address] Allergies, Adverse Reactions, Alerts No [...] Team Personnel Name: Sunday Frank RN Position: [facility] RN Member Role: Primary Care Nurse Name: Noemi Rivas RN Position: [facility] RN Member Role: Primary Care Nurse Name: Humaira Smith RN Position: [facility] RN Member Role: Primary Care Nurse Name: Lindsey Smith RN Position: [facility] Hospital Gate Watch Member Role: Primary Care Nurse Name: Chelsea Mendez RN Position: [facility] RN Member Role: Primary Care Nurse Name: Shelly Pendleton Position: [facility] Outreach Member Role: Lifetime Consulting Physician Name: Gracie Gilliland RN Position: S RN Member Role: Primary Care Nurse Name: Claude Ho Position: Reference Physician Member Role: PCP Address: Address: [address] [place] [address] [place] [address]- Care Team Related Persons Name: MOSES MCGHEE Address: home [address] [facility] [address] [address] Name: LAURA MCGHEE Address: [address] [place] [address] Name: HAYLEY MCGHEE Address: [place] [address]
--- OUTSIDE RECORDS SUMMARY | 2024-01-31 07:44 | XMS_ITS | Continuity of Care Document ---
Author Organization [facility] Address [address] [place] [address]- Care Team Providers Care Music Journalist Name Role Phone Claude Ho Primary Care Physician [place] [facility] [place]23 - 08/24/23 [facility] [address] [place] [address]- Attending Physician: Lynsey Newton Admitting Physician: Lynsey Newton Referring Physician: AdmtrLynsey Allergies, Adverse Reactions, Alerts No Known Allergies [...] Team Personnel Name: Di Irene RN Position: [facility] RN Member Role: Primary Care Nurse Name: Noemi Rivas RN Position: [facility] RN Member Role: Primary Care Nurse Name: Franklin Xavier RN Position: [facility] RN Member Role: Primary Care Nurse Name: Bijal Gracia RN Position: [facility] RN Member Role: Primary Care Nurse Name: Humaira Smith RN Position: [facility] RN Member Role: Primary Care Nurse Name: Cary Shell RN Position: [facility] RN Member Role: Primary Care Nurse Name: Shyann Trujillo Position: [facility] RN Member Role: Primary Care Nurse Name: Juan Manuel Garland RN Position: [facility] RN Member Role: Primary Care Nurse Name: Lindsey Smith RN Position: [facility] Transactional Attorney Member Role: Primary Care Nurse Name: Chelsea Mendez RN Position: [facility] RN Member Role: Primary Care Nurse Name: Shelly Pendleton Position: [facility] Outreach Member Role: Lifetime Consulting Physician Name: Gloria Jane RN Position: [facility] RN Member Role: Primary Care Nurse Name: Claude Ho Position: Reference Physician Member Role: PCP Address: Address: [address] [place] [address]- Care Team Related Persons Name: MOSES MCGHEE Address: home [address] [address] Name: LAURA MCGHEE Address: [address] [place] [address] Name: HAYLEY MCGHEE Address: home [address] [place] [address]
--- OUTSIDE RECORDS SUMMARY | 2024-01-31 07:44 | XMS_ITS | Continuity of Care Document ---
Author Organization [facility] Address [address] [place] [address]- Care Team Providers Care Chemical Process Project Engineer Name Role Phone Claude Ho Primary Care Physician Encounter [facility] [place] Date(s): 05/16/23 - 06/15/23 [facility] [address] [place] [address]- Attending Physician: Lynsey Newton Admitting Physician: Lynsey [...] Team Personnel Name: Di Irene RN Position: [facility] RN Member Role: Primary Care Nurse Name: Noemi Rivas RN Position: [facility] RN Member Role: Primary Care Nurse Name: Franklin Xavier RN Position: [facility] RN Member Role: Primary Care Nurse Name: Bijal Gracia RN Position: [facility] RN Member Role: Primary Care Nurse Name: Humaira Smith RN Position: [facility] RN Member Role: Primary Care Nurse Name: Cary Shell RN Position: [facility] RN Member Role: Primary Care Nurse Name: Shyann Trujillo Position: [facility] RN Member Role: Primary Care Nurse Name: Juan Manuel Garland RN Position: [facility] RN Member Role: Primary Care Nurse Name: Lindsey Smith RN Position: [facility] Labor Specialist Member Role: Primary Care Nurse Name: Chelsea Mendez RN Position: [facility] RN Member Role: Primary Care Nurse Name: Shelly Pendleton Position: [facility] Outreach Member Role: Lifetime Consulting Physician Name: Gloria Jane RN Position: [facility] RN Member Role: Primary Care Nurse Name: Marian Brody RN Position: [facility] RN Member Role: Primary Care Nurse Name: Claude Ho Position: Reference Physician Member Role: PCP Address: Address: [address] [place] [address]- Care Team Related Persons Name: MOSES MCGHEE Address: [address] [address] Name: LAURA MCGHEE Address: [address] [place] [address] Name: HAYLEY MCGHEE Address: [address] [place] [address]
--- OUTSIDE RECORDS SUMMARY | 2024-01-31 07:44 | XMS_ITS | Continuity of Care Document ---
Author Organization [facility] Address [address] [place] [address]- Care Team Providers Care Sow Manager Name Role Phone Claude Ho Primary Care Physician Encounter [facility] [id number] Date(s): 02/19/23 - 02/19/[address] [address]- Encounter Diagnosis Left lower extemity(Final) - 02/19/23 Discharge Disposition: A-D/C Home Attending Physician: Verna Alva MD Admitting Physician: Verna Alva MD Referring Physician: Not on Staff, Referring MD [...] dysfunction of right side Confirmed Active Results Radiology Reports * Exam Date Time Procedure Performing Provider Status 02/19/23 1:11 PM US Doppler Ext Lower Venous Right [place]; Auth (Verified) Notes: (US Doppler Ext Lower Venous Right) Reason For Exam: Pain in limb;Other: RESULT: US Doppler Ext Lower Venous Right US Doppler Ext Lower Venous Right Hx of Present Illness: Pt sts he has been recently treated for LE cellulitis. He recently stopped the doxcycline after finishing the course. Is still on the keflex given to him. He is afraid of developing sepsis. Feels run down and tired. Also recently stopped antidepressant; Reason: Other:; Pain in limb; Clinical Question(s): Thrombus COMPARISON: None IMAGING TECHNIQUE: Ultrasound of the veins from the groin through the calf was performed using grayscale, color, and spectral Doppler ultrasound assessing for complete compressibility and normal flowcharacteristics. FINDINGS: Common femoral vein: Patent. No thrombosis. Femoral vein: Patent. No thrombosis. Popliteal vein: Patent. No thrombosis. Gastrocnemius veins: The visualized portions are patent without evidence of thrombosis. Peroneal veins: The visualized portions are patent without evidence of thrombosis. Posterior tibial veins: The visualized portions are patent without evidence of thrombosis. Contralateral common femoral vein: Patent. No thrombosis. IMPRESSION: No evidence of right lower extremity deep venous thrombosis. WSN: [id number] Ordering Physician: Verna Alva Dictated By: Rafita Bhandari Jr, MD Dictated Date/Time: 02/19/23 1:18 pm Reviewed By: Rafita Bhandari Jr, MD Signed By: Rafita Bhandari Jr, MD Signed Date/Time: 02/19/23 1:18 pm Transcribed By: LETTY Transcribed Date/Time: 02/19/23 1:17 pm * Exam Date Time Procedure Performing Provider Status 02/19/23 11:20 AM Tibia/Fibula 2 Views Right [place] Card[place]; Meme (Verified) Notes: (Tibia/Fibula 2 Views Right) Reason For Exam: with Pain;Pain RESULT: Tibia/Fibula 2 Views Right Tibia/Fibula 2 Views Right Hx of Present Illness: Pt sts he has been recently treated for LE cellulitis. He recently stopped the doxcycline after finishing the course. Is still on the keflex given to him. He is afraid of developing sepsis. Feels run down and tired. Also recently stopped antidepressant; Reason: Pain; with Pain; Clinical Question(s): Osteomyelitis COMPARISON: No prior exams are available for comparison Correlation made with CT of the right knee dated 01/28/2023 FINDINGS: No evidence of acute fracture, malalignment, cortical erosion or periosteal reaction. Soft tissue swelling along the anterior aspect of the knee. No evidence of radiodense soft tissue foreign body. IMPRESSION: Evaluation of the right leg demonstrates no evidence of acute fracture, malalignment, or cortical erosion WSN: [id number] Ordering Physician: Verna Alva Dictated By: Rafita Bhandari Jr, MD Dictated Date/Time: 02/19/23 12:24 p Reviewed By: Rafita Bhandari Jr, MD Signed By: Rafita Bhandari Jr, MD Signed Date/Time: 02/19/23 12:24 pm Transcribed By: LETTY Transcribed Date/Time: 02/19/23 12:23 pm Vital Signs Most recent to oldest [Reference Range]: 1 2 Oxygen Saturation [94-100 %] 100 % (02/19/23 2:27 PM) 98 % (02/19/23 8:44 AM) Pulse Rate [55-90 bpm] 85 bpm (02/19/23 2:27 PM) 86 bpm (02/19/23 8:44 AM) Blood Pressure [90-138/55-84 mm Hg] 135/ 88mm Hg (02/19/23 2:27 PM) 143/90mm Hg *H* (02/19/23 8:44 AM) Respiratory Rate [16-30 br/min] 18 br/mi n (02/19/23 2:27 PM) 16 br/min (02/19/23 8:44 AM) Temperature [96.8-100.4 DegF] 97.6 DegF (02/19/23 2:27 PM) 98.2 DegF (02/19/23 8:44 AM) Mode of Delivery (Oxygen) Room air (02/19/23 2:27 PM) Room air (02/19/23 8:44 AM) Blood pressure sites Arm, left (02/19/23 2:27 PM) Arm, left (02/19/23 8:44 AM) Temperature Route Oral (02/19/23 2:27 PM) Oral (02/19/23 8:44 AM) Social History Social History Type Response Smoking Status Never (less than 100 in lifetime) entered on: 12/08/19 Sex EKG study * Event Display: ECG 12-Lead Authored Date: Please click on pdf link to open report * Event Display: ECG 12-Lead Authored Date: Ventricular Rate: 69 BPM Atrial Rate: 69 BPM P-R Interval: 160 ms QRS Duration: 74 ms Q-T Interval: 382 ms QTC Calculation(Bazett): 409 ms P [place]: 44 degrees R [place]: 51 degrees T [place]: 56 degrees Normal sinus rhythm Normal ECG When compared with ECG of 28-JAN-2023 15:07, No significant change was found Confirmed by ANETTE BECKETT MD ([id number]) on 02/19/2023 11:27:36 AM [place]: ANETTE BECKETT MD Patient Care team information Care Team Personnel Name: Sunday Frank RN Position: [facility] RN Member Role: Primary Care Nurse Name: Noemi Rivas RN Position: [facility] RN Member Role: Primary Care Nurse Name: Humaira Smith RN Position: [facility] RN Member Role: Primary Care Nurse Name: Lindsey Smith RN Position: [facility] Hospital Fellmongery Worker Member Role: Primary Care Nurse Name: Chelsea Mendez RN Position: [facility] RN Member Role: Primary Care Nurse Name: Shelly Pendleton Position: [facility] Outreach Member Role: Lifetime Consulting Physician Name: Gracie Gilliland RN Position: [facility] RN Member Role: Primary Care Nurse Name: Claude Ho Position: Reference Physician Member Role: PCP Address: Address: [address] [place] [address]- Name: Verna Alva MD Position: [facility] ED Medicine MD Member Role: Admitting Physician Address: Address: [address] [place] [address]- Name: Jody Pool RN Position: [facility] ED RN W/OE and Tasks Member Role: Patient Care Provider Name: Claude Hanson Position: [facility] Associate Professional Member Role: ED Physician Np Address: Address: [address] [place] [address]- Care Team Related Persons Name: MOSES MCGHEE Address: home [address] [address] Name: LAURA MCGHEE Address: [address] [place] [address] Name: HAYLEY MCGHEE Address: [place] [address]
--- OUTSIDE RECORDS SUMMARY | 2024-01-31 07:44 | XMS_ITS | Continuity of Care Document ---
Author Organization [facility] ter Address [address] [place] [address]- Care Team Providers Care Petroleum Refinery Laborer Name Role Phone Claude Ho Primary Care Physician Encounter [facility] [place] Date(s): 12/17/22 - 12/17/[address] [address]- Discharge Disposition: A-D/C Home Attending Physician: Martine Artis MD Admitting Physician: Martine Artis MD Referring Physician: Not on Staff, Referring MD Allergies, Adverse Reactions, Alerts No Known Allergies Immunizations Given and Recorded Vaccine Date Status Refusal Reason tetanus/diphtheria/pertussis, acel(Tdap) 12/08/19 Given Not Given Vaccine Date Status Refusal Reason pneumococcal 23-valent vaccine 06/18/18 Not Given Patient Refuses pneumococcal 23-valent vaccine 06/23/16 Not Given Patient Refuses influenza virus vaccine, inactivated 06/18/18 Not Given Patient Refuses influenza virus vaccine, inactivated 06/23/16 Not Given Patient Refuses Medications Advair Diskus 100 mcg-50 mcg inhalation powder 1, inhalation, Inhalation, 2 times a day, Refills 0, Maintenance, 12/08/19 10:52:00 EDT Start Date: 12/08/19 Status: Ordered atorvastatin 80 mg oral tablet 1 tablet = 80 mg, By Mouth, Daily Start Date: 06/16/18 Status: Ordered gabapentin 400 mg oral capsule 400 mg, 1, capsule, By Mouth, 3 times a day, May take an extra dose as needed Start Date: 06/16/18 Status: Ordered lisinopril 10 mg oral tablet 10 mg, 1, tablet, By Mouth, Daily Start Date: 06/16/18 Status: Ordered Multivitamin 1 tablet, By Mouth, Daily, Maintenance, 06/16/18 19:15:29 EST Start Date: 06/16/18 Status: Ordered ProAir HFA 90 mcg/inh inhalation aerosol with adapter 2, puffs, Inhalation, Every 6 hours, PRN Start Date: 06/16/18 Status: Ordered sertraline 50 mg oral tablet 1 tablet = 50 mg, By Mouth, Daily, # 30 tablet, 0 Refills, Maintenance, 05/27/21 10:57:00 EST, Tablet, Partial fill upon patient request if the prescription is for a schedule II opioid drug. Start Date: 05/27/21 Status: Ordered traMADol 50 mg oral tablet Take 1-2 tablets by mouth every 8 hours as needed for pain Start Date: 06/16/18 Status: Ordered Problem List Condition Confirmation Course [...] Exam Date Time Procedure Performing Provider Status 12/17/22 4:[address] Cervical Spine W/O Contrast Ralph [place]; Auth (Verified) Notes: (CT Cervical Spine W/O Contrast) Reason For Exam: Neck trauma, dangerous injury mechanism;Other: RESULT: CT Cervical Spine W/O Contrast CT Head/Brain W/O Contrast, CT Cervical Spine W/O Contrast INDICATION: Hx of Present Illness: OD; Reason: Other:; Brain mass or lesion; Clinical Question(s): Hematoma TECHNIQUE: Noncontrast head CT using axial technique was reconstructed in axial and coronal planes.Noncontrast spiral CT through the cervical spine was formatted in 3 planes. Automatic tube modulation was used for the cervical spine and iterative dose reconstruction was used for both the head and cervical spine to optimize scan parameters and image quality. CTDIvol Body: 14.83 mGy, DLP Body: 331 mGy*cm. CTDIvol Head: 45.07 mGy, DLP Head: 811 mGy*cm. COMPARISON: 12/27/2006. Xray cervical spine dated to 117 FINDINGS: Entry Level Account Representative View Findings, Lines and Tubes: None. BRAIN [...] No locked or perched facet. Patient is post anterior cervical discectomy and instrument fusion at C5-6 and C6-7. No CT evidence of hardware complication. Moderate to severe neural foraminal narrowing at C5-6 and C6-7, secondary to facet arthropathy and uncinate process hypertrophy. OTHER BONES: No acute abnormality. CERVICAL SOFT TISSUES AND LUNG APICES: Normal soft tissues. Visualized lung apices are clear. IMPRESSION: No CT evidence of acute intracranial abnormality. No CT evidence of acute fracture or traumatic subluxation in the cervical spine. Post C5-C6 and C6-C7 discectomy with instrumented fusion, similar to prior cervical spine radiographs from 2017. WSN: [id number] Ordering Physician: Ryland Liriano Dictated By: Barbie Saavedra MD Dictated Date/Time: 12/17/22 4:35 pm Reviewed By: Barbie Saavedra MD Signed By: Barbie Saavedra MD Signed Date/Time: 12/17/22 4:35 pm Transcribed By: LETTY Transcribed Date/Time: 12/17/22 4:28 pm * Exam Date Time Procedure Performing Provider Status 12/17/22 4:[address] Head/Brain W/O Contrast Tim Lynch na; Auth (Verified) Notes: (CT Head/Brain W/O Contrast) Reason For Exam: Brain mass or lesion;Other: RESULT: CT Head/Brain W/O Contrast CT Head/Brain W/O Contrast, CT Cervical Spine W/O Contrast INDICATION: Hx of Present Illness: OD; Reason: Other:; Brain mass or lesion; Clinical Question(s): Hematoma TECHNIQUE: Noncontrast head CT using axial technique was reconstructed in axial and coronal planes.Noncontrast spiral CT through the cervical spine was formatted in 3 planes. Automatic tube modulation was used for the cervical spine and iterative dose reconstruction was used for both the head and cervical spine to optimize scan parameters and image quality. CTDIvol Body: 14.83 mGy, DLP Body: 331 mGy*cm. CTDIvol Head: 45.07 mGy, DLP Head: 811 mGy*cm. COMPARISON: 12/27/2006. Xray cervical spine dated to 117 FINDINGS: Entry Level Account Representative View Findings, Lines and Tubes: None. BRAIN [...] No locked or perched facet. Patient is post anterior cervical discectomy and instrument fusion at C5-6 and C6-7. No CT evidence of hardware complication. Moderate to severe neural foraminal narrowing at C5-6 and C6-7, secondary to facet arthropathy and uncinate process hypertrophy. OTHER BONES: No acute abnormality. CERVICAL SOFT TISSUES AND LUNG APICES: Normal soft tissues. Visualized lung apices are clear. IMPRESSION: No CT evidence of acute intracranial abnormality. No CT evidence of acute fracture or traumatic subluxation in the cervical spine. Post C5-C6 and C6-C7 discectomy with instrumented fusion, similar to prior cervical spine radiographs from 2017. WSN: [id number] Ordering Physician: Ryland Liriano Dictated By: Barbie Saavedra MD Dictated Date/Time: 12/17/22 4:35 pm Reviewed By: Barbie Saavedra MD Signed By: Barbie Saavedra MD Signed Date/Time: 12/17/22 4:35 pm Transcribed By: LETTY Transcribed Date/Time: 12/17/22 4:28 pm Vital Signs Most recent to oldest [Reference Range]: 1 2 Oxygen Saturation [94-100 %] 98 % (12/17/22 9:58 PM) 94 % (12/17/22 2:35 PM) Pulse Rate [55-90 bpm] 60 bpm (12/17/22 9:58 PM) 74 bpm (12/17/22 2:35 PM) Blood Pressure [90-138/55-84 mm Hg] 134/ 85mm Hg (12/17/22 9:58 PM) 111/75mm Hg (12/17/22 2:35 PM) Respiratory Rate [16-30 br/min] 18 br/mi n (12/17/22 9:58 PM) 16 br/min (12/17/22 2:35 PM) Temperature [96.8-100.4 DegF] 97.4 DegF (12/17/22 9:58 PM) 98.4 DegF (12/17/22 2:35 PM) Mode of Delivery (Oxygen) Room air (12/17/22 9:58 PM) Room air (12/17/22 2:35 PM) Temperature Route Oral (12/17/22 9:58 PM) Oral (12/17/22 2:35 PM) Social History Social History Type Response Smoking Status Never (less than 100 in lifetime) entered on: 12/08/19 Sex Note * Ryland Liriano DO: PERFORM Event Display: Patient Education Leaflets Authored Date: [id number] Psychiatric Outpatient Referral List ?? 263 Psychiatric Outpatient Referral List [facility] 24hr Emergency Crisis Line? [address] [place] [address], [facility]? [phone] ? [phone] [facility] Central Intake? [phone] ? [phone] [facility]? [address], [place] ? [phone] ? Walk in: T-Th 9:45-12:45pm [facility]? [address], [place]? [phone] [facility]? [phone] [facility]? [address], [place]? [phone] [facility] [place] [facility]? [address], [place]? [phone] [facility]? [address], [place]? [phone] [facility]? [address], [place]? [phone] [facility]? [address], [place]? [phone] ? Walk in: M-Th 8:00-4:00pm [facility]? [address], [place]? [phone] [facility] [place] [facility]? [address] [place]? [phone] [facility]? [address], [place] ? [phone] [facility]? [address], [place]? [phone] [facility]? [address], [place]? [phone] [facility]? [place] & [place]? [phone] [facility] [address], [place]? [phone] [facility]? [place] & [place]? [phone] [facility]? [address], [place] ? [phone] [facility]? [address], [place]? [phone] [facility]? [address], [place]? [phone] ? Walk in: M-W 9:30 or 10:30am [facility]? [address], [place]?? [place]? [phone] ? [phone] Domestic Violence 24 Hr Hot Lines: ? [facility]? [phone] ? [facility]? [phone]? [facility]? [phone] ? [facility]? [phone] ?? Elder Services: ? [facility] [place] [facility]? [phone] ? [facility] [place] [facility] ? [phone] ?? Legal Advocacy Hot Line: ? [facility] ? [phone] (9:30-12:45 M-Malena) ?? [place] Dept of Transitional Assistance: ? [place] [phone] / [place] [phone] / [facility] [phone] ?? DETOX Services [facility]? [address], [place], [place]? [phone] [facility]? [address], [place], [place]? [phone] [facility]? [address], [place], [place]? [phone] [facility] ??? [facility]? [address], [place], [place]? [phone] ? [phone] ? After 5pm:? [phone] [facility] ??? [facility] [address], [place], [place]? [phone] ? [phone]? After 5pm:? [phone] [facility]? [address], [place], [place]? [phone] [facility]? [address], [place], [place]? [phone] ? [phone] [facility]? [address], [place], [place]? [phone] [facility]? [address], [place], [place]? [phone] [facility]? [address], [place], [place]? [phone] [facility]? [address], [place], [place]? [phone] ? [phone] [facility] ?[address], [place], [place]? [phone] [facility]? [address], [place], [place]? [phone] ? [phone] [facility]? [address], [place], [place]? [phone] ? [phone] [facility]? [address], [place], [place]? [phone] [facility]? [address], [place], [place] ? [phone] [facility]? [address], [place], [place]? [phone] ? [phone] ? Patient Care team information Care Team Personnel Name: Noemi Rivas RN Position: [facility] RN Member Role: Primary Care Nurse Name: Lindsey Smith RN Position: [facility] Griddle Attendant Member Role: Primary Care Nurse Name: Shelly Pendleton Position: [facility] Outreach Member Role: Lifetime Consulting Physician Name: Gracie Gilliland RN Position: [facility] RN Member Role: Primary Care Nurse Name: Claude Ho Position: Reference Physician Member Role: PCP Address: Address: [address] [place] [address]- Name: Martine Artis MD Position: [facility] ED Medicine MD Member Role: Admitting Physician Address: Address: [address] [place] [address]- Name: Ryland Liriano DO Position: [facility] Resident Member Role: ED Resident Address: Address: [address] [place] [address] - Name: Parker Banks Position: [facility] ED TA [facility] Member Role: Secondary School Special Ed Teacher Name: Marlon Sol Position: [facility] ED RN W/OE and Tasks Member Role: Patient Care Provider Care Team Related Persons Name: MOSES MCGHEE Address: [address] [place] [address] Name: TAZLAURA Address: home [address] [place] [address]
--- OUTSIDE RECORDS SUMMARY | 2024-01-31 07:45 | XMS_ITS | Continuity of Care Document ---
Author Organization [facility] Address [address] [place] [address] genet, [address] [place] [address]- Care Team Providers Care Monitor Car Operator Name Role Phone Claude Ho Primary Care Physician En[place] [facility] [place] Date(s): 03/07/23 - 04/06/23 [facility] [address] [place] [address] Drive, [address] [place], [place] [address] Attending Physician: Lynsey Newton Admitting Physician: AdmLynsey banda Referring Physician: AdmtrLynsey Allergies, Adverse Reactions, Alerts [...] Display: MRI Spine, Non- BH Authored Date: * Event Display: MRI Spine, Non- BH Authored Date: Patient Care team information Care Team Personnel Name: Sunday Frank RN Position: S RN Member Role: Primary Care Nurse Name: Noemi Rivas RN Position: [facility] RN Member Role: Primary Care Nurse Name: Humaira Smith RN Position: [facility] RN Member Role: Primary Care Nurse Name: Lindsey [place] RN Position: [facility] Hospital Music Director Member Role: Primary Care Nurse Name: Chelsea Mendez RN Position: [facility] RN Member Role: Primary Care Nurse Name: Shelly Pendleton Position: [facility] Outreach Member Role: Lifetime Consulting Physician Name: Gracie Gilliland RN Position: [facility] RN Member Role: Primary Care Nurse Name: Claude oH Position: Reference Physician Member Role: PCP Address: Address: [address] [place] [address] Care Team Related Persons Name: MOSES MCGHEE Address: [address] [address] Name: LAURA MCGHEE Address: [address] [place] [address] Name: HAYLEY MCGHEE Address: [place] [address]
--- OUTSIDE RECORDS SUMMARY | 2024-01-31 07:45 | XMS_ITS | Continuity of Care Document ---
Author Organization [facility] Address [address] [place] [address]- Care Team Providers Care Machine Shop Instructor Name Role Phone Claude Ho Primary Care Physician [place] [facility] [id number] Date(s): 01/02/23 - 03/22/23 [facility] [address] [place] [address]- Attending Physician: Mandi Mathew MD Admitting Physician: Mandi Mathew MD Allergies, Adverse Reactions, Alerts No Known [...] Team Personnel Name: Sunday Frank RN Position: [facility] RN Member Role: Primary Care Nurse Name: Noemi Rivas RN Position: [facility] RN Member Role: Primary Care Nurse Name: Humaira [place] RN Position: [facility] RN Member Role: Primary Care Nurse Name: Lindsey [place] RN Position: [facility] Hospital Programmer Analyst Consultant Member Role: Primary Care Nurse Name: Chelsea Mendez RN Position: [facility] RN Member Role: Primary Care Nurse Name: Shelly Pendleton Position: [facility] Outreach Member Role: Lifetime Consulting Physician Name: Gracie Gilliland RN Position: S RN Member Role: Primary Care Nurse Name: Claude Ho Position: Reference Physician Member Role: PCP Address: Address: [address] [place] [address]- Care Team Related Persons Name: MOSES MCGHEE Address: home [address] [place] [address] Name: LAURA MCGHEE Address: [address] [place] [address] Name: HAYLEY MCGHEE Address: [place] [address]
--- OUTSIDE RECORDS SUMMARY | 2024-01-31 07:45 | XMS_ITS | Continuity of Care Document ---
Author Organization [facility] Address [address] [place] [address]- Care Team Providers Care Community Engagement Specialist Name Role Phone Claude Ho Primary Care Physician ( [phone] Encounter [facility] [place] [place] Date(s): 02/28/23 - 06/15/23 [facility] [address] [place] [address]- Attending Physician: Cecilio Astorga DO Admitting Physician: Cecilio Astorga DO Allergies, Adverse Reactions, Alerts No Known Allergies [...] Team Personnel Name: Di Irene RN Position: [facility] RN Member Role: Primary Care Nurse Name: Noemi Rivas RN Position: [facility] RN Member Role: Primary Care Nurse Name: Franklin Xavier RN Position: [facility] RN Member Role: Primary Care Nurse Name: Bijal Gracia RN Position: [facility] RN Member Role: Primary Care Nurse Name: Humaira [place] RN Position: [facility] RN Member Role: Primary Care Nurse Name: Cary Shell RN Position: [facility] RN Member Role: Primary Care Nurse Name: Shyann Trujillo Position: [facility] RN Member Role: Primary Care Nurse Name: Juan Manuel Garland RN Position: [facility] RN Member Role: Primary Care Nurse Name: Lindsey [place] RN Position: [facility] Hospital Ict Account Manager Member Role: Primary Care Nurse Name: Chelsea Mendez RN Position: [facility] RN Member Role: Primary Care Nurse Name: Shelly Pendleton Position: [facility] Outreach Member Role: Lifetime Consulting Physician Name: Gloria Jane RN Position: [facility] RN Member Role: Primary Care Nurse Name: Marian Brody RN Position: [facility] RN Member Role: Primary Care Nurse Name: Claude Ho Position: Reference Physician Member Role: PCP Address: Address: [address] [place] [address]- Care Team Related Persons Name: MOSES MCGHEE Address: [address] [address] Name: LAURA MCGHEE Address: [address] [place] [address] Name: HAYLEY MCGHEE Address: home [address] [place] [address]
--- OUTSIDE RECORDS SUMMARY | 2024-01-31 07:45 | XMS_ITS | Continuity of Care Document ---
Author Organization [facility] Address [address] [place] [address]- Care Team Providers Care Bow Maker Custom Name Role Phone Claude Ho Primary Care Physician [place] [facility] [place] 03/10/23 - 04/09/23 [facility] [address] [place] [address] Attending Physician: Lynsey Newton Admitting Physician: Lynsey [...] Team Personnel Name: Sunday Frank RN Position: [facility] RN Member Role: Primary Care Nurse Name: Noemi Rivas RN Position: [facility] RN Member Role: Primary Care Nurse Name: Humaira [place] RN Position: [facility] RN Member Role: Primary Care Nurse Name: Lindsey [place] RN Position: [facility] Hospital Vehicle Painter Member Role: Primary Care Nurse Name: Chelsea Mendez RN Position: [facility] RN Member Role: Primary Care Nurse Name: Shelly Pendleton Position: [facility] Outreach Member Role: Lifetime Consulting Physician Name: Gracie Gilliland RN Position: [facility] RN Member Role: Primary Care Nurse Name: Claude Ho Position: Reference Physician Member Role: PCP Address: Address: [address] [place] [address]- Care Team Related Persons Name: MOSES MCGHEE Address: home [address] [place] [address] Name: LAURA MCGHEE Address: [address] [place] [address] Name: HAYLEY MCGHEE Address: [place] [address]
--- OUTSIDE RECORDS SUMMARY | 2024-01-31 07:45 | XMS_ITS | Continuity of Care Document ---
Author Organization [facility] Address [address] [place] [address]- Care Team Providers Care Felt Cutting Machine Operator Name Role Phone Claude Ho Primary Care Physician Encounter [facility] [place] Date(s): 04/13/23 - 05/19/[address] [address]- Attending Physician: Gianluca Ortiz MD Admitting Physician: [...] Team Personnel Name: Di Irene RN Position: [facility] RN Member Role: Primary Care Nurse Name: Sunday Frank RN Position: [facility] RN Member Role: Primary Care Nurse Name: Noemi Rivas RN Position: [facility] RN Member Role: Primary Care Nurse Name: Franklin Xavier RN Position: [facility] RN Member Role: Primary Care Nurse Name: Bijal Gracia RN Position: [facility] RN Member Role: Primary Care Nurse Name: Humaira [place] RN Position: [facility] RN Member Role: Primary Care Nurse Name: Cary Shell RN Position: [facility] RN Member Role: Primary Care Nurse Name: Shyann Trujillo Position: [facility] RN Member Role: Primary Care Nurse Name: Juan Manuel Garland RN Position: [facility] RN Member Role: Primary Care Nurse Name: Lindsey [place] RN Position: [facility] Hospital Technical Communication Teacher Member Role: Primary Care Nurse Name: Chelsea Mendez RN Position: [facility] RN Member Role: Primary Care Nurse Name: Shelly Pendleton Position: [facility] Outreach Member Role: Lifetime Consulting Physician Name: Gloria Jane RN Position: [facility] RN Member Role: Primary Care Nurse Name: Marian Brody RN Position: [facility] RN Member Role: Primary Care Nurse Name: Claude Ho Position: Reference Physician Member Role: PCP Address: Address: [address] [place] [address]- Care Team Related Persons Name: MOSES MCGHEE Address: home [address] [address] Name: LAURA MCGHEE Address: [address] [place] [address] Name: HAYLEY MCGHEE Address: [address] [place] [address]
--- OUTSIDE RECORDS SUMMARY | 2024-01-31 07:45 | XMS_ITS | Continuity of Care Document ---
Author Organization [facility] Address [address] [place] [address]- Care Team Providers Care Hooker Machine Tender Name Role Phone Claude Ho Primary Care Physician [place] [facility] [place] 11/09/23 - 01/04/24 [facility] [address] [place] [address]- Attending Physician: Cecilio Astorga DO Admitting Physician: [...] Team Personnel Name: Di Irene RN Position: [facility] RN Member Role: Primary Care Nurse Name: Noemi Rivas RN Position: [facility] RN Member Role: Primary Care Nurse Name: Franklin Xavier RN Position: [facility] RN Member Role: Primary Care Nurse Name: Bijal Gracia RN Position: [facility] RN Member Role: Primary Care Nurse Name: Humaira [place] RN Position: [facility] RN Member Role: Primary Care Nurse Name: Cary Shell RN Position: [facility] RN Member Role: Primary Care Nurse Name: Shyann Trujillo Position: [facility] RN Member Role: Primary Care Nurse Name: Lindsey [place] RN Position: [facility] Hospital Facility Maintenance Technician Member Role: Primary Care Nurse Name: Chelsea Mendez RN Position: [facility] RN Member Role: Primary Care Nurse Name: Shelly Pendleton Position: [facility] Outreach Member Role: Lifetime Consulting Physician Name: Gloria Jane RN Position: [facility] RN Member Role: Primary Care Nurse Name: Claude Ho Position: Reference Physician Member Role: PCP Address: Address: [address] [place] [address] [place] [address]- [place] Care Team Related Persons Name: MOSES MCGHEE Address: home [address] [address] Name: LAURA MCGHEE Address: home [address] [place] [address] Name: HAYLEY MCGHEE Address: home [address] [place] [address]
--- OUTSIDE RECORDS SUMMARY | 2024-01-31 07:45 | XMS_ITS | Continuity of Care Document ---
Author Organization [facility] Address [address] [place] [address] genet, [address] [place] [address]- Care Team Providers Care Rooming House Keeper Name Role Phone Claude Ho Primary Care Physician Encounter [facility] Date(s): 03/07/23 - 03/14/23 [facility] [address] [place] [address] Drive, [address] [place], [place] [address] Attending Physician: Angel SHERWOOD, Gianluca Smart Allergies, Adverse Reactions, Alerts No Known Allergies [...] oldest [Reference Range]: 1 Height 174 cm (03/07/23 2:57 PM) Weight 65.7 kg (03/07/23 2:57 PM) Body Mass Index [18.5-24.99 kg/m2] 21.7 kg/m2 (03/07/23 2:57 PM) Social History Social History Type Response Smoking Status Never (less than 100 in lifetime) entered on: 12/08/19 Sex Patient Care team information Care Team Personnel Name: Sunday Frank RN Position: S RN Member Role: Primary Care Nurse Name: Noemi Rivas RN Position: S RN Member Role: Primary Care Nurse Name: Humaira Smith RN Position: [facility] RN Member Role: Primary Care Nurse Name: Lindsey Smith RN Position: [facility] Hospital Accounts Payable Representative Member Role: Primary Care Nurse Name: Chelsea Mendez RN Position: [facility] RN Member Role: Primary Care Nurse Name: Shelly Pendleton Position: [facility] Outreach Member Role: Lifetime Consulting Physician Name: Gracie Gilliland RN Position: [facility] RN Member Role: Primary Care Nurse Name: Claude Ho Position: Reference Physician Member Role: PCP Address: Address: [address] [place] [address]- Care Team Related Persons Name: MOSES MCGHEE Address: home [address] [place] [address] Name: LAURA MCGHEE Address: [address] [place] [address] Name: HAYLEY MCGHEE Address: [place] [address]
--- OUTSIDE RECORDS SUMMARY | 2024-01-31 07:45 | XMS_ITS | Continuity of Care Document ---
Author Organization [facility] Address [address] [place] [address]- Care Team Providers Care Record Librarian Name Role Phone Claude Ho Primary Care Physician Encounter [facility] Date(s): 03/03/23 - 04/02/23 [facility] [address] [place] [address]- Allergies, Adverse Reactions, Alerts No Known Allergies [...] Team Personnel Name: Sunday Frank RN Position: [facility] RN Member Role: Primary Care Nurse Name: Noemi Rivas RN Position: [facility] RN Member Role: Primary Care Nurse Name: Humaira Smith RN Position: [facility] RN Member Role: Primary Care Nurse Name: Lindsey Smith RN Position: [facility] Hospital Director Of Automation Member Role: Primary Care Nurse Name: Chelsea Mendez RN Position: [facility] RN Member Role: Primary Care Nurse Name: Shelly Pendleton Position: [facility] Outreach Member Role: Lifetime Consulting Physician Name: Gracie Gilliland RN Position: [facility] RN Member Role: Primary Care Nurse Name: Claude Ho Position: Reference Physician Member Role: PCP Address: Address: [address] [place] [address] [place] [address]- Care Team Related Persons Name: MOSES MCGHEE Address: home [address] [facility] [address] [address] Name: LAURA MCGHEE Address: home [address] [place] [address] Name: HAYLEY MCGHEE Address: home [place] [address]
--- OUTSIDE RECORDS SUMMARY | 2024-01-31 07:45 | XMS_ITS | Continuity of Care Document ---
Author Organization [facility] Address [address] [place] [address]- Care Team Providers Care Monogram Operator Name Role Phone Claude Ho Primary Care Physician ( [phone] Encounter [facility] Date(s): 08/24/23 - 09/23/23 [facility] [address] [place] [address]- Attending Physician: Lynsey Newton Admitting Physician: Lynsey [...] Care Nurse Name: Noemi Rivas [facility] RN Member Role: Primary Care Nurse Name: Franklin Xavier RN [facility] RN Member Role: Primary Care Nurse Name: Bijal Gracia RN Position: [facility] RN Member Role: Primary Care Nurse Name: Humaira Smith RN [facility]: [facility] RN Member Role: Primary Care Nurse Name: Cary Shell RN Position: [facility] RN Member Role: Primary Care Nurse Name: Shyann Trujillo [facility] RN Member Role: Primary Care Nurse Name: Juan Manule Garland RN Position: [facility] RN Member Role: Primary Care Nurse Name: Lindsey Smith RN [facility]: [facility] Hospital Lawyer Member Role: Primary Care Nurse Name: Chelsea Mendez RN [facility] RN Member Role: Primary Care Nurse Name: Shelly Pendleton [facility]: [facility] Outreach Member Role: Lifetime Consulting Physician Name: Gloria Jane RN [facility] RN Member Role: Primary Care Nurse Name: Claude Ho Position: Reference Physician Member Role: PCP Address: Address: [address] [place] [address]- Care Team Related Persons Name: MOSES MCGHEE Address: home [address] [address] Name: LAURA MCGHEE Address: [address] [place] [address] Name: HAYLEY MCGHEE Address: [address] [place] [address]
--- OUTSIDE RECORDS SUMMARY | 2024-01-31 07:45 | XMS_ITS | Continuity of Care Document ---
Author Organization [facility] Address [address] [place] [address]- Care Team Providers Care Director Of Revenue Name Role Phone Claude Ho Primary Care Physician Encounter [facility] Date(s): 01/06/23 - 02/05/23 [facility] [address] [place] [address]- Allergies, Adverse Reactions, Alerts No Known Allergies [...] 02/07/23 10:41:00 EDT, 01/31/23 10:41:00 EDT, Tablet, [facility], Partial fill upon patient request if the [...] AT BEDTIME Start Date: 01/24/23 Status: Ordered bethel wilcox lyo 250 mg oral capsule = 250 mg, By Mouth, 2 times a day, for 10 days, # 20 capsule, 0 Refills, Acute 02/10/23 10:38:00 EDT, 01/31/23 10:38:00 EDT, Capsule, [facility], Partial fill upon patient request [...] Team Personnel Name: Sunday Frank RN Position: [facility] RN Member Role: Primary Care Nurse Name: Noemi Rivas RN Position: [facility] RN Member Role: Primary Care Nurse Name: Humaira Smith RN Position: [facility] RN Member Role: Primary Care Nurse Name: Lindsey Smith RN Position: [facility] Hospital Wedger And Gluer Member Role: Primary Care Nurse Name: Chelsea Mendez RN Position: [facility] RN Member Role: Primary Care Nurse Name: Shelly Pendleton Position: [facility] Outreach Member Role: Lifetime Consulting Physician Name: Gracie Gilliland RN Position: [facility] RN Member Role: Primary Care Nurse Name: Claude Ho Position: Reference Physician Member Role: PCP Address: Address: [address] [place] [address] - [place] Care Team Related Persons Name: MOSES MCGHEE Address: home [address] [place] [address] [place] [address] Name: LAURA MCGHEE Address: home [address] [place] [address] Name: HAYLEY MCGHEE Address: [place] [address]
--- OUTSIDE RECORDS SUMMARY | 2024-01-31 07:45 | XMS_ITS | Continuity of Care Document ---
Author Organization [facility] Address [address] [place] [address]- Care Team Providers Care Translator/Interpreter Name Role Phone Claude Ho Primary Care Physician Encounter [facility] Date(s): 09/08/22 - 10/08/22 [facility] [address] [place] [address]- Allergies, Adverse Reactions, Alerts No Known Allergies [...] Team Personnel Name: Noemi Rivas RN Position: [facility] RN Member Role: Primary Care Nurse Name: Lindsey Smith RN Position: [facility] Hospital Senior Database Administrator Member Role: Primary Care Nurse Name: Shelly Pendleton Position: [facility] Outreach Member Role: Lifetime Consulting Physician Name: Gracie Gilliland RN Position: [facility] RN Member Role: Primary Care Nurse Name: Claude Ho Position: Reference Physician Member Role: PCP Address: Address: [address] [place] [address] - Care Team Related Persons Name: MOSES MCGHEE Address: home [address] [place] [address] Name: LAURA MCGHEE Address: home [address] [place] [address]
--- OUTSIDE RECORDS SUMMARY | 2024-01-31 07:45 | XMS_ITS | Continuity of Care Document ---
Author Organization [facility] Address [address] [place] [address]- Care Team Providers Care Technical Producer Name Role Phone Claude Ho Primary Care Physician Encounter [facility] Date(s): 03/30/23 - 04/30/[address] [address]- Attending Physician: Gianluca Ortiz MD Admitting Physician: [...] Team Personnel Name: Di Irene RN Position: [facility] RN Member Role: Primary Care Nurse Name: Sunday Frank RN Position: [facility] RN Member Role: Primary Care Nurse Name: Noemi Rvias RN Position: [facility] RN Member Role: Primary Care Nurse Name: Franklin Xavier RN Position: [facility] RN Member Role: Primary Care Nurse Name: Bijal Gracia RN Position: [facility] RN Member Role: Primary Care Nurse Name: Humaira Smith RN Position: [facility] RN Member Role: Primary Care Nurse Name: Cary Shell RN Position: [facility] RN Member Role: Primary Care Nurse Name: Shyann Trujillo Position: [facility] RN Member Role: Primary Care Nurse Name: Juan Manuel Garland RN Position: [facility] RN Member Role: Primary Care Nurse Name: Lindsey Smith RN Position: [facility] Trust Manager Member Role: Primary Care Nurse Name: Chelsea Mendez RN Position: [facility] RN Member Role: Primary Care Nurse Name: Shelly Pendleton Position: [facility] Outreach Member Role: Lifetime Consulting Physician Name: Gracie Gilliland RN Position: [facility] RN Member Role: Primary Care Nurse Name: Gloria Jane RN Position: [facility] RN Member Role: Primary Care Nurse Name: Marian Brody RN Position: [facility] RN Member Role: Primary Care Nurse Name: Claude Ho Position: Reference Physician Member Role: PCP Address: Address: [address] [place] [address]- Care Team Related Persons Name: MOSES MCGHEE Address: home [address] [address] Name: LAURA MCGHEE Address: [address] [place] [address] Name: HAYLEY MCGHEE Address: home [address] [place] [address]
== END 2024-01-29 16:54 | disposition home or self-care (01) ==
PROVIDERS: PCP Physician Assistant Medical; Visit Provider Physician Assistant
DX: H61.23 Impacted cerumen, bilateral (principal)
CPT/HCPCS: 69209; 99203